=== PATIENT | male | born 1995 | race African-American/Black ===

== ENCOUNTER 2016-05-04 | Outpatient (CLI) | payer MEDICAID | END 2016-05-04 05:16 | disposition critical access hospital (66) | DX: R10.31 Right lower quadrant pain (principal) | CPT/HCPCS: A0425; A0429 ==

== ENCOUNTER 2016-05-04 05:32 | Emergency (ER) | payer MEDICAID, OTHER ==
[2016-05-04] MEDS ORDERED: IOPAMIDOL-300 100 ML VIAL IVP ONE (07:23)
[2016-05-04] MEDS ORDERED: AMPICILLIN/SULBACTAM 3 GM in SODIUM CHLORIDE 0.9% MINIBAG 100 ML IV STA (07:50)
== END 2016-05-04 08:47 | disposition home or self-care (01) ==
DX: K57.32 Diverticulitis of large intestine without perforation or abscess without bleeding (principal)
CPT/HCPCS: 36415; 74177; 80053; 81003; 83690; 85025; 87491; 87591; 96374; 99284; Q9967

== ENCOUNTER 2017-05-22 08:00 | Outpatient (CLI) | payer MEDICAID ==
[2017-05-22 18:55] LABS: BASOPHILS # (AUTO) 0.1 10^3/uL (0.0-0.1); EOSINOPHILS # (AUTO) 0.1 10^3/uL (0.0-0.7); EOSINOPHILS % (AUTO) 0.9 %; HGB - HEMOGLOBIN 14.7 g/dL (14.0-18.0); LYMPHOCYTES # (AUTO) 1.7 10^3/uL (1.5-3.5); MEAN CORPUSCULAR HEMOGLOBIN 28.7 pg (27.0-31.0); MEAN CORPUSCULAR HGB CONC 33.1 g/dL (32.0-36.0); MEAN CORPUSCULAR VOLUME 86.8 fL (80.0-94.0); MEAN PLATELET VOLUME 8.9 fL (7.4-11.4); MONOCYTES # (AUTO) 0.4 10^3/uL (0.0-1.0); MONOCYTES % (AUTO) 6.3 %; NEUTROPHILS % (AUTO) 64.8 %; PLT - PLATELET COUNT 272 10^3/uL (130-450); RED BLOOD COUNT 5.12 10^6/uL (4.70-6.10); RED CELL DISTRIBUTION WIDTH 13.9 % (12.0-15.0); WHITE BLOOD COUNT 6.2 x10^3/uL (4.8-10.8)
[2017-05-22 18:58] LABS: BUN - BLOOD UREA NITROGEN 17 mg/dL (6-20); CALCIUM 9.2 mg/dL (8.5-10.3); CARBON DIOXIDE - CO2 26 mmol/L (21-32); CHLORIDE 103 mmol/L (101-111); CREATININE 0.9 mg/dL (0.6-1.2); GFR - MDRD 126 (>89); GLUCOSE 97 mg/dL (70-100); SODIUM 136 mmol/L (135-145)
== END 2017-05-22 08:01 | disposition home or self-care (01) ==
LOC: LAB.N 08:00
PROVIDERS: ATTEND Physician Assistant Medical
DX: K57.32 Diverticulitis of large intestine without perforation or abscess without bleeding (principal)
CPT/HCPCS: 36415; 80048; 84443; 85025

== ENCOUNTER 2017-05-24 20:08 | Outpatient (CLI) | payer MEDICAID | END 2017-05-24 20:09 | disposition EMS.NT | LOC: EMS 20:08 | PROVIDERS: ATTEND Surgery | DX: F91.9 Conduct disorder, unspecified (principal) ==

== ENCOUNTER 2017-06-09 14:54 | Outpatient (CLI) | payer MEDICAID | END 2017-06-09 14:55 | disposition home or self-care (01) | LOC: SC 14:54 | PROVIDERS: ATTEND Internal Medicine Pulmonary Disease | DX: G47.50 Parasomnia, unspecified (principal) | CPT/HCPCS: 99203; 99212 ==

== ENCOUNTER 2017-09-25 12:00 | Emergency (ER) | payer MEDICAID ==
[2017-09-25 12:43] VITALS: BP 122/79
[2017-09-25 12:55] LABS: BILIRUBIN,URINE NEGATIVE (NEGATIVE); GLUCOSE, URINE (UA) NEGATIVE (NEGATIVE); KETONES,URINE (UA) NEGATIVE (NEGATIVE); LEUKOCYTE ESTERASE, URINE NEGATIVE (NEGATIVE); NITRITE,URINE NEGATIVE (NEGATIVE); OCCULT BLOOD,URINE LARGE (NEGATIVE); PROTEIN,URINE NEGATIVE (NEGATIVE); UROBILINOGEN,URINE 0.2 (NORMAL) E.U./dL (NORMAL)
[2017-09-25 12:58] LABS: CLARITY,URINE CLEAR (CLEAR)
[2017-09-25 13:17] LABS: BACTERIA,URINE Rare /HPF (None Seen); RBC,URINE 0-5 /HPF (0-5); SQUAMOUS EPITHELIAL CELL,UR RARE Squamous (<= Few)
[2017-09-25] MEDS ORDERED: SODIUM CHLORIDE 0.9% 1,000 ML IV ONE ×2 (16:13→16:54)
--- NOTE | 2017-09-25 16:14 | ED Physician Documentation ---
History of Present Illness - Stated complaint Stated Complaint: URINATING BLOOD - Chief complaint Chief Complaint: General - History obtained from History obtained from: Patient - History of Present Illness Timing: Today (He noted a few episodes of gross hematuria without clots today. He denies any abdominal pain or other urinary complaints. No back pain. He notes that he has been working out heavily with a lot of abdominal crunches lately.) Review of Systems Ten Systems: 10 systems reviewed and negative Constitutional: denies: Fever, Chills GI: denies: Abdominal Pain, Nausea, Vomiting, Constipation, Diarrhea, Bloody / black stool : denies: Dysuria, Frequency, Hesitancy PD PAST MEDICAL HISTORY - Past Medical History Past Medical History: No Cardiovascular: None Respiratory: None Endocrine/Autoimmune: None GI: None : None HEENT: None Psych: Anxiety Musculoskeletal: None Derm: None - Past Surgical History Past Surgical History: No - Present Medications Home Medications: Ambulatory Orders Medication Instructions Recorded Confirmed No Known Home Medications [No 09/25/17 09/25/17 Known Home Medications] - Allergies Allergies/Adverse Reactions: Allergies Allergy/AdvReac Type Severity Reaction Status Date / Time No Known Drug Allergies Allergy Verified 09/25/17 16:11 - Social History Does the pt smoke?: No Smoking Status: Never smoker Does the pt drink ETOH?: Yes ETOH Use: Liquor Does the pt have substance abuse?: No - Immunizations Immunizations are current?: Yes - POLST Patient has POLST: No PD ED PE NORMAL - Vitals Vital signs reviewed: Yes - General General: Alert and oriented X 3, No acute distress - Abdomen Abdomen: Normal bowel sounds, Soft, Non tender - Back Back: No CVA TTP, No spinal TTP - Extremities Extremities: No edema, No calf tenderness / cord - Neuro Neuro: Alert and oriented X 3, Normal speech Results - Vitals Vitals: Vital Signs - 24 hr 09/25/17 12:38 Temperature 36.4 C L Heart Rate 62 Respiratory 16 Rate Blood Pressure 122/79 O2 Saturation 100 Oxygen O2 Source Room air - Labs Labs: Laboratory Tests 09/25/17 09/25/17 09/25/17 12:48 16:20 16:20 WBC 7.4 RBC 4.98 Hgb 14.8 Hct 44.1 MCV 88.6 MCH 29.8 MCHC 33.6 RDW 13.4 Plt Count 284 MPV 8.1 Neut # (Auto) 4.6 Lymph # (Auto) 1.9 [place] # (Auto) 0.7 Eos # (Auto) 0.1 Baso # (Auto) 0.1 Absolute Nucleated RBC 0.00 Nucleated RBC % 0.0 Sodium 138 Potassium 3.5 Chloride 102 Carbon Dioxide 27 Anion Gap 9.0 BUN 18 Creatinine 1.1 Estimated GFR (MDRD) 100 Glucose 123 H Calcium 9.5 Total Bilirubin 0.7 AST 53 H ALT 26 Alkaline Phosphatase 45 Total Creatine Kinase 1226 H* Total Protein 8.1 Albumin 4.5 Globulin 3.6 Albumin/Globulin Ratio 1.3 Lipase 38 Urine Color YELLOW Urine Clarity CLEAR Urine pH 6.0 Ur Specific [place] 1.015 Urine Protein NEGATIVE Urine Glucose (UA) NEGATIVE Urine Ketones NEGATIVE Urine Occult Blood LARGE H Urine Nitrite NEGATIVE Urine Bilirubin NEGATIVE Urine Urobilinogen 0.2 (NORMAL) Ur Leukocyte Esterase NEGATIVE Urine RBC 0-5 Urine WBC 0-3 Ur Squamous Epith Cells RARE Squamous Urine Bacteria Rare Ur Microscopic Review INDICATED Urine Culture Comments NOT INDICATED PD MEDICAL DECISION MAKING - ED course ED course: 22-year-old gentleman with gross hematuria today, this is probably related to mild rhabdomyolysis which is corroborated on laboratory evaluation. It is pretty mild and he does not need admission for this. He was given 2 L of crystalloid in the department and urged to take a few days off of exercise and push p.o. fluids. - Sepsis Event Vital Signs: Vital Signs - 24 hr 09/25/17 12:38 Temperature 36.4 C L Heart Rate 62 Respiratory 16 Rate Blood Pressure 122/79 O2 Saturation 100 Oxygen O2 Source Room air Departure - Departure Disposition: 01 Home, Self Care Clinical Impression: Rhabdomyolysis Qualifiers: Rhabdomyolysis type: non-traumatic Qualified Code(s): M62.82 - Rhabdomyolysis Condition: Good Record reviewed to determine appropriate education?: Yes Instructions: ED Rhabdomyolysis Comments: Drink plenty of fluids, do not exercise for a few days. Follow-up with your doctor on Friday. Return if worse or if still having bloody urine in the next 48 hours.
[2017-09-25 16:31] LABS: BASOPHILS # (AUTO) 0.1 10^3/uL (0.0-0.1); BASOPHILS % (AUTO) 1.1 %; EOSINOPHILS # (AUTO) 0.1 10^3/uL (0.0-0.7); EOSINOPHILS % (AUTO) 1.4 %; HGB - HEMOGLOBIN 14.8 g/dL (14.0-18.0); LYMPHOCYTES # (AUTO) 1.9 10^3/uL (1.5-3.5); LYMPHOCYTES % (AUTO) 25.9 %; MEAN CORPUSCULAR HEMOGLOBIN 29.8 pg (27.0-31.0); MEAN CORPUSCULAR HGB CONC 33.6 g/dL (32.0-36.0); MEAN CORPUSCULAR VOLUME 88.6 fL (80.0-94.0); MEAN PLATELET VOLUME 8.1 fL (7.4-11.4); MONOCYTES # (AUTO) 0.7 10^3/uL (0.0-1.0); MONOCYTES % (AUTO) 9.3 %; NEUTROPHILS # (AUTO) 4.6 10^3/uL (1.5-6.6); NEUTROPHILS % (AUTO) 62.3 %; PLT - PLATELET COUNT 284 10^3/uL (130-450); RED BLOOD COUNT 4.98 10^6/uL (4.70-6.10); RED CELL DISTRIBUTION WIDTH 13.4 % (12.0-15.0); WHITE BLOOD COUNT 7.4 x10^3/uL (4.8-10.8)
[2017-09-25 16:53] LABS: ALBUMIN 4.5 g/dL (3.2-5.5); ALBUMIN/GLOBULIN RATIO 1.3 (1.0-2.2); BILIRUBIN,TOTAL 0.7 mg/dL (0.2-1.0); CALCIUM 9.5 mg/dL (8.5-10.3); CREATININE 1.1 mg/dL (0.6-1.2); TOTAL PROTEIN 8.1 g/dL (6.7-8.2)
== END 2017-09-25 17:35 | disposition home or self-care (01) ==
LOC: ED 12:00
DX: M62.82 Rhabdomyolysis (principal)
CPT/HCPCS: 36415; 80053; 81001; 81003; 82550; 83690; 85025; 87086; 99283

== ENCOUNTER 2018-03-16 21:16 | Outpatient (CLI) | payer SELFPAY | END 2018-03-16 21:17 | disposition EMS.NT | LOC: EMS 21:16 | PROVIDERS: ATTEND Surgery | DX: F41.9 Anxiety disorder, unspecified (principal) ==

== ENCOUNTER 2018-03-29 18:27 | Outpatient (CLI) | payer MEDICAID | END 2018-03-29 18:28 | disposition EMS.NT | LOC: EMS 18:27 | PROVIDERS: ATTEND Surgery | DX: F43.9 Reaction to severe stress, unspecified (principal); R44.0 Auditory hallucinations ==

== ENCOUNTER 2018-11-11 20:59 | Outpatient (CLI) | payer MEDICAID | END 2018-11-11 21:00 | disposition critical access hospital (66) | LOC: EMS 20:59 | PROVIDERS: ATTEND Surgery | DX: R46.89 Other symptoms and signs involving appearance and behavior (principal); R41.9 Unspecified symptoms and signs involving cognitive functions and awareness | CPT/HCPCS: A0425; A0429 ==

== ENCOUNTER 2018-11-11 21:14 | Emergency (ER) | payer MEDICAID ==
[2018-11-11 21:19] VITALS: BP 144/42
[2018-11-11] MEDS ORDERED: SERTRALINE 25 MG TABLET PO STA (21:25)
--- NOTE | 2018-11-11 21:27 | ED Physician Documentation ---
PD HPI MHE - Stated complaint Stated Complaint: MHE - Chief complaint Chief Complaint: MHE - History obtained from History obtained from: Patient - History of Present Illness Primary symptom: Other (This is a 23-year-old gentleman, currently homeless but with very good insight. He has a history of anxiety, previously this was treated with Zoloft with good effect. Interestingly though he says he often took Zoloft only on a as needed basis and it was very effective. He denies suicidal ideation, substance use, homicidal ideation, or hallucinations. He was found today having a panic attack where he was hitting the ground. He was able to adjust himself out of that.) Review of Systems Constitutional: denies: Fever, Chills Respiratory: reports: Reviewed and negative GI: reports: Reviewed and negative : reports: Reviewed and negative PD PAST MEDICAL HISTORY - Past Medical History Past Medical History: Yes Cardiovascular: None Respiratory: None Endocrine/Autoimmune: None GI: None : None HEENT: None Psych: Anxiety Musculoskeletal: None Derm: None - Past Surgical History Past Surgical History: No - Present Medications Home Medications: Ambulatory Orders Medication Instructions Recorded Confirmed Sertraline [Zoloft] 25 mg PO DAILY #30 tablet 11/11/18 - Allergies Allergies/Adverse Reactions: Allergies Allergy/AdvReac Type Severity Reaction Status Date / Time No Known Drug Allergies Allergy Verified 11/11/18 21:19 - Social History Does the pt smoke?: No Smoking Status: Never smoker Does the pt drink ETOH?: Yes Does the pt have substance abuse?: No - Immunizations Immunizations are current?: Yes - POLST Patient has POLST: No PD ED PE NORMAL - Vitals Vital signs reviewed: Yes - General General: Alert and oriented X 3, No acute distress - HEENT HEENT: PERRL, EOMI - Extremities Extremities: Other (Some scrapes on the dorsa of the hands. Some eczema to, no deformities or tenderness.) - Neuro Neuro: Alert and oriented X 3, Normal speech - Psych Psych: Normal mood, Normal affect Results - Vitals Vitals: Vital Signs - 24 hr 11/11/18 21:15 Temperature 36.7 C Heart Rate 94 Respiratory 18 Rate Blood Pressure 144/42 H O2 Saturation 98 Oxygen O2 Source Room air PD MEDICAL DECISION MAKING - ED course ED course: This young man who presents with anxiety. He requested some Zoloft. I also offered a short-term bridging benzodiazepine prescription, or tele-psychiatric consultation which he declined. Departure - Departure Disposition: 01 Home, Self Care Clinical Impression: Anxiety Condition: Good Record reviewed to determine appropriate education?: Yes Instructions: ED Stress React Prescriptions: Sertraline [Zoloft] 25 mg PO DAILY #30 tablet Comments: Follow-up with [facility] in 5 days as is already scheduled. Return for new or worsening symptoms. Return anytime if you develop some homicidal or suicidal ideations Discharge Date/Time: 11/11/18 21:38
== END 2018-11-11 21:38 | disposition home or self-care (01) ==
LOC: EDUNIT# → ED 21:14
DX: F41.9 Anxiety disorder, unspecified (principal); Z59.0 Homelessness
CPT/HCPCS: 99282; 99283; A9270

== ENCOUNTER 2019-10-14 02:07 | Outpatient (CLI) | payer MEDICAID | END 2019-10-14 02:08 | disposition critical access hospital (66) | LOC: EMS 02:07 | PROVIDERS: ATTEND Surgery | DX: R46.89 Other symptoms and signs involving appearance and behavior (principal); R41.82 Altered mental status, unspecified; Z59.0 Homelessness | CPT/HCPCS: A0425; A0429; A0999 ==

== ENCOUNTER 2019-10-14 02:24 | Emergency (ER) | payer MEDICAID ==
[2019-10-14 02:40] VITALS: BP 129/90
[2019-10-14 02:56] LABS: MUDS CUTOFF CONCENTRATIONS CUTOFF CONC BELOW:
[2019-10-14 03:07] LABS: AMPHETAMINE SCREEN,URINE NEGATIVE (NEGATIVE); BENZODIAZEPINES SCREEN, URINE NEGATIVE (NEGATIVE); COCAINE SCREEN URINE NEGATIVE (NEGATIVE); METHADONE SCREEN, URINE NEGATIVE (NEGATIVE); METHAMPHETAMINES SCREEN, URINE NEGATIVE (NEGATIVE); OPIATE SCREEN, URINE NEGATIVE (NEGATIVE); OXYCODONE SCREEN, URINE NEGATIVE (NEGATIVE); PROPOXYPHENE SCREEN, URINE NEGATIVE (NEGATIVE); TRICYCLIC ANTIDEPRESSANT,URINE NEGATIVE (NEGATIVE)
--- NOTE | 2019-10-14 03:17 | ED Physician Documentation ---
PD HPI MHE - Stated complaint Stated Complaint: MHE - Chief complaint Chief Complaint: MHE - History obtained from History obtained from: Patient, EMS - History of Present Illness Primary symptom: Anxiety Contributing factors: Out of meds Recently seen: Not recently seen - Additional information Additional information: [place]. police arrived to parking lot in [place] due to 911 call regarding odd behavior, yelling and ranting from patient. Police called for EMS who transport patient to ED. Patient tells me he was anxious and thinks he had a panic attack. He says this has happened before, and he talks to himself to try to reason out his frustrations and anxiety; he says that he sometimes ends up losing control and yelling, as he did tonight, but has no SI/HI/AH/VH. He is calm, polite, and cooperative on my HPI. He says he had been taking zoloft intermittently and took a dose tonight, which was his last dose.He has had similar ED presentations in the past, most recently ([facility]) November 2018 Review of Systems Neurologic: reports: Reviewed and negative Psychiatric: reports: Anxiety. denies: Depressed, Suicidal, Homicidal, Hallucinations, Delusions, Insomnia PD PAST MEDICAL HISTORY - Past Medical History Past Medical History: Yes Cardiovascular: None Respiratory: None Neuro: None Endocrine/Autoimmune: None GI: None : None HEENT: None Psych: Anxiety Musculoskeletal: None Derm: None - Past Surgical History Past Surgical History: No - Present Medications Home Medications: Ambulatory Orders Medication Instructions Recorded Confirmed Sertraline [Zoloft] 25 mg PO DAILY #30 tablet 11/11/18 Sertraline [Zoloft] 25 mg PO DAILY #30 tablet 10/14/19 - Allergies Allergies/Adverse Reactions: Allergies Allergy/AdvReac Type Severity Reaction Status Date / Time No Known Drug Allergies Allergy Verified 10/14/19 02:40 - Social History Does the pt smoke?: No Smoking Status: Never smoker Does the pt drink ETOH?: No Does the pt have substance abuse?: No - Immunizations Immunizations are current?: Yes - POLST Patient has POLST: No PD ED PE NORMAL - Vitals Vital signs reviewed: Yes - General General: Alert and oriented X 3, No acute distress, Well developed/nourished - HEENT HEENT: Atraumatic, PERRL, EOMI, Moist mucous membranes - Cardiac Cardiac: RRR, No murmur - Respiratory Respiratory: No respiratory distress, Clear bilaterally - Neuro Neuro: Alert and oriented X 3, 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, No motor deficit, No sensory deficit, Normal speech Eye Opening: Spontaneous Motor: Obeys Commands Verbal: Oriented GCS Score: 15 - Psych Psych: Normal mood, Normal affect Results - Vitals Vitals: Vital Signs - 24 hr 10/14/19 10/14/19 02:34 04:00 Temperature 37.1 C Heart Rate 76 Respiratory 18 16 Rate Blood Pressure 129/90 H O2 Saturation 99 Oxygen O2 Source Room air - Labs Labs: Laboratory Tests 10/14/19 02:45 Urine Opiates Screen NEGATIVE Ur Oxycodone Screen NEGATIVE Urine Methadone Screen NEGATIVE Ur Propoxyphene Screen NEGATIVE Ur Barbiturates Screen NEGATIVE Ur Tricyclics Screen NEGATIVE Ur Phencyclidine Scrn NEGATIVE Ur Amphetamine Screen NEGATIVE U Methamphetamines Scrn NEGATIVE U Benzodiazepines Scrn NEGATIVE Urine Cocaine Screen NEGATIVE U Cannabinoids Screen NEGATIVE PD MEDICAL DECISION MAKING - ED course Complexity details: reviewed old records, reviewed results, considered differential, d/w patient ED course: patient is calm, cooperative, polite, and pleasant. the report regarding his be havior tonight is concerning, but at this time there is insufficient reason to hold patient against his will. I offered telepsych consult which he declines; he says he is set up with [facility], that he will call in the morning to arrange for next available appointment, and that he has been able to obtain timely appointments in the past. I offered to rx zoloft, which he appreciates. Departure - Departure Disposition: 01 Home, Self Care Clinical Impression: Anxiety Condition: Good Instructions: ED Stress React Follow-Up: [facility] [Provider Group] Prescriptions: Sertraline [Zoloft] 25 mg PO DAILY #30 tablet Discharge Date/Time: 10/14/19 04:05
== END 2019-10-14 04:05 | disposition home or self-care (01) ==
LOC: EDUNIT# → ED 02:24
DX: F41.9 Anxiety disorder, unspecified (principal)
CPT/HCPCS: 80306; 99283; 99284

== ENCOUNTER 2019-12-21 02:38 | Outpatient (CLI) | payer MEDICAID | END 2019-12-21 02:39 | disposition EMS.NT | LOC: EMS 02:38 | PROVIDERS: ATTEND Surgery | DX: R07.9 Chest pain, unspecified (principal) ==

== ENCOUNTER 2020-05-20 21:10 | Outpatient (CLI) | payer MEDICAID | END 2020-05-20 21:11 | disposition critical access hospital (66) | LOC: EMS 21:10 | PROVIDERS: ATTEND Emergency Medicine | DX: R46.89 Other symptoms and signs involving appearance and behavior (principal) | CPT/HCPCS: A0425; A0429; A0999 ==

== ENCOUNTER 2020-05-20 21:28 | Emergency (ER) | payer MEDICAID ==
[2020-05-20 21:41] VITALS: BP 117/56
[2020-05-20] MEDS ORDERED: SERTRALINE 50 MG TABLET PO STA (21:58)
--- NOTE | 2020-05-20 22:05 | ED Physician Documentation ---
PD HPI MHE - Stated complaint Stated Complaint: MHE - Chief complaint Chief Complaint: MHE - History obtained from History obtained from: Patient - History of Present Illness Primary symptom: Anxiety, Other (Patient reportedly seen yelling and acting a bit erratically but not directed at anyone. Police were called and they assessed him as he was coming down. He states he has OCD and gets anxious and feels anxiety in has a pattern of yelling and exercises that he has to do to calm himself down. OK now.) Timing - onset: Today Contributing factors: Out of meds (out of Zoloft and been off it for several months. He states it did help at the time.), Other. No: Substance abuse - ETOH, Substance abuse - drugs Similar symptoms before: Diagnosis (OCD and anxiety. No history of schizoaffective disorder.) Recently seen: Clinic (has resumed with [facility] recently.) Review of Systems Constitutional: denies: Fever, Chills Nose: denies: Rhinorrhea / runny nose, Congestion Throat: denies: Sore throat Cardiac: denies: Chest pain / pressure Respiratory: denies: Dyspnea, Cough GI: denies: Abdominal Pain, Nausea, Vomiting Skin: denies: Rash, Lesions PD PAST MEDICAL HISTORY - Past Medical History Past Medical History: Yes Cardiovascular: None Respiratory: None Neuro: None Endocrine/Autoimmune: None GI: None : None HEENT: None Psych: Anxiety Musculoskeletal: None Derm: None - Past Surgical History Past Surgical History: No - Present Medications Home Medications: Ambulatory Orders Medication Instructions Recorded Confirmed Sertraline [Zoloft] 25 mg PO DAILY #30 tablet 11/11/18 Sertraline [Zoloft] 25 mg PO DAILY #30 tablet 10/14/19 Sertraline [Zoloft] 50 mg PO DAILY #30 tablet 05/20/20 - Allergies Allergies/Adverse Reactions: Allergies Allergy/AdvReac Type Severity Reaction Status Date / Time No Known Drug Allergies Allergy Verified 05/20/20 21:33 - Living Situation Living Situation: reports: Alone Living Arrangement: reports: Homeless (lives in his car the past couple of years) - Social History Does the pt smoke?: No Smoking Status: Never smoker Does the pt drink ETOH?: No Does the pt have substance abuse?: No - Family History Family history: reports: Other (anxiety and depression in parents) - Immunizations Immunizations are current?: Yes - POLST Patient has POLST: No PD ED PE NORMAL - Vitals Vital signs reviewed: Yes - General General: Alert and oriented X 3, No acute distress, Well developed/nourished - HEENT HEENT: Pharynx benign - Neck Neck: Supple, no meningeal sign, No adenopathy - Cardiac Cardiac: RRR, No murmur - Respiratory Respiratory: Clear bilaterally - Derm Derm: Normal color, Warm and dry - Neuro Neuro: Alert and oriented X 3, No motor deficit, Normal speech Eye Opening: Spontaneous Motor: Obeys Commands Verbal: Oriented GCS Score: 15 - Psych Psych: Normal mood, Normal affect Results - Vitals Vitals: Vital Signs - 24 hr 05/20/20 05/20/20 05/20/20 21:33 21:41 22:43 Temperature 36.6 C 36.6 C 36.6 C Heart Rate 73 68 68 Respiratory 16 16 16 Rate Blood Pressure 117/56 L 117/56 L 117/56 L O2 Saturation 100 98 98 Oxygen O2 Source Room air PD MEDICAL DECISION MAKING - ED course Complexity details: considered differential (He states he had a stress episode and was yelling and such until he calmed himself down. He was in public view so police were called but he was not at any threat to others nor himself. He feels relaxed at this time. He denies any medication for anxiety per se. He would like to resume his Zoloft.), d/w patient ED course: The patient declined any other medicines to act as a bridge in the short-term for his anxiety. He states his OCD is such that he is not trusting of new medicines easily and would prefer to just have the Zoloft he had had before. Departure - Departure Disposition: 01 Home, Self Care Clinical Impression: Stress reaction OCD (obsessive compulsive disorder) Qualifiers: Obsessive-compulsive disorder type: unspecified Qualified Code(s): F42.9 - Obsessive-compulsive disorder, unspecified Condition: Stable Record reviewed to determine appropriate education?: Yes Instructions: ED Stress React Follow-Up: [facility] [Provider Group] [facility] [Provider Group] Prescriptions: Sertraline [Zoloft] 50 mg PO DAILY #30 tablet Comments: Resume your Zoloft at 25 mg (half tablet) daily for the first 6 days and then increase to the whole tablet of 50 mg daily. We would start at a lower dose and you had been on since you had been off of it for many months. Follow-up with your primary care or [facility] for ongoing prescriptions and evaluation. Call Friday to [facility] for follow-up appointment. Avoid alcohol. Stay well-hydrated. Discharge Date/Time: 05/20/20 22:42
[2020-05-21] MEDS ORDERED: SERTRALINE 50 MG TABLET PO SCH (09:00)
== END 2020-05-20 22:42 | disposition home or self-care (01) ==
LOC: EDUNIT# → ED 21:28
DX: F42.9 Obsessive-compulsive disorder, unspecified (principal); F43.9 Reaction to severe stress, unspecified; Z59.0 Homelessness
CPT/HCPCS: 99283; 99284; A9270

== ENCOUNTER 2020-06-12 20:30 | Emergency (ER) | payer MEDICAID ==
--- OUTSIDE RECORDS SUMMARY | 2020-06-12 20:33 | EXTERNAL MEDICAL SUMMARY RPT | Continuity of Care Document ---
:1995 Demographics Phone Unavailable Preferred Language Unknown Marital Status Unknown Denominational Affiliation Unknown Race Unknown Ethnic Group Unknown Author Organization [facility] Address [address] [place] [address] Phone Social History date description facility [phone]
[2020-06-12 21:12] LABS: MUDS CUTOFF CONCENTRATIONS CUTOFF CONC BELOW:
--- OUTSIDE RECORDS SUMMARY | 2020-06-12 21:15 | EXTERNAL MEDICAL SUMMARY RPT | Continuity of Care Document ---
:1995 Demographics Phone Unavailable Preferred Language Unknown Marital Status Unknown Restorationism Affiliation Unknown Race Unknown Ethnic Group Unknown Author Organization [place] Address [address] [id number] Phone Social History date description facility [phone]
[2020-06-12 21:17] LABS: BILIRUBIN,URINE NEGATIVE (NEGATIVE); CLARITY,URINE CLEAR (CLEAR); GLUCOSE, URINE (UA) NEGATIVE (NEGATIVE); KETONES,URINE (UA) NEGATIVE (NEGATIVE); LEUKOCYTE ESTERASE, URINE NEGATIVE (NEGATIVE); NITRITE,URINE NEGATIVE (NEGATIVE); OCCULT BLOOD,URINE TRACE-INTA (NEGATIVE); PH,URINE 5.5 PH (5.0-7.5); PROTEIN,URINE NEGATIVE (NEGATIVE); UROBILINOGEN,URINE 0.2 (NORMAL) E.U./dL (NORMAL)
[2020-06-12 21:45] LABS: AMPHETAMINE SCREEN,URINE NEGATIVE (NEGATIVE); BARBITURATE SCREEN,UR NEGATIVE (NEGATIVE); BENZODIAZEPINES SCREEN, URINE NEGATIVE (NEGATIVE); COCAINE SCREEN URINE NEGATIVE (NEGATIVE); METHADONE SCREEN, URINE NEGATIVE (NEGATIVE); METHAMPHETAMINES SCREEN, URINE NEGATIVE (NEGATIVE); OPIATE SCREEN, URINE NEGATIVE (NEGATIVE); OXYCODONE SCREEN, URINE NEGATIVE (NEGATIVE); PROPOXYPHENE SCREEN, URINE NEGATIVE (NEGATIVE); THC CANNABINOID SCREEN, URINE NEGATIVE (NEGATIVE); TRICYCLIC ANTIDEPRESSANT,URINE NEGATIVE (NEGATIVE)
--- NOTE | 2020-06-12 21:49 | ED Physician Documentation ---
PD HPI MHE - Stated complaint Stated Complaint: MHE - Chief complaint Chief Complaint: MHE - History obtained from History obtained from: Patient, EMS - History of Present Illness Primary symptom: Self harm - other (Running in and out of traffic) Timing - onset: Today Contributing factors: Off meds Similar symptoms before: Diagnosis (OCD and anxiety) Recently seen: Emergency Dept - Additional information Additional information: 25-year-old male with a history of anxiety and OCD has previously been on Zoloft with success at control of his symptoms. He describes taking this intermittently and having good luck with controlling the amount of anxiety he experiences. He has been into the emergency department recently for evaluation after he was found to be acting bizarrely. At the time he was prescribed his Zoloft and he was never able to pick this up. He apparently went to the drugstore and they told him it was not ready and told him to come back which he never did.Today he was again acting bizarrely he states that he had a panic attack which is usually results in him being very aggressive with yelling not directed any specific person and he was not violent. He was seen by the police twice today acting bizarrely and when he was running in and out of traffic this evening they detained him. The patient now states that he is calm down and is no longer under the influence of his anxiety attack. He relates that his anxiety attacks are much better when he is usually taking his medication. He relates that he has moved to [facility] about 10 months ago and he has stopped taking his medication then. He is homeless lives in his car [place]The patient feels that if he were to start on his Zoloft that he would be fine and would not require hospitalization. Review of Systems Constitutional: denies: Fever Eyes: denies: Decreased vision Ears: denies: Ear pain Nose: denies: Rhinorrhea / runny nose, Congestion Throat: denies: Sore throat Cardiac: denies: Chest pain / pressure, Palpitations Respiratory: denies: Dyspnea, Cough GI: denies: Nausea, Vomiting : denies: Dysuria Skin: denies: Rash Musculoskeletal: denies: Neck pain, Back pain, Extremity pain Neurologic: denies: Generalized weakness, Focal weakness, Numbness Psychiatric: reports: Anxiety. denies: Depressed, Suicidal, Homicidal, Hallucinations PD PAST MEDICAL HISTORY - Past Medical History Cardiovascular: None Respiratory: None Neuro: None Endocrine/Autoimmune: None GI: None : None HEENT: None Psych: Anxiety Musculoskeletal: None Derm: None - Past Surgical History Past Surgical History: No - Present Medications Home Medications: Ambulatory Orders Medication Instructions Recorded Confirmed Sertraline [Zoloft] 50 mg PO DAILY #30 tablet 05/20/20 - Allergies Allergies/Adverse Reactions: Allergies Allergy/AdvReac Type Severity Reaction Status Date / Time No Known Drug Allergies Allergy Verified 06/12/20 20:33 - Social History Does the pt smoke?: No Smoking Status: Never smoker Does the pt drink ETOH?: No Does the pt have substance abuse?: No - Immunizations Immunizations are current?: Yes - POLST Patient has POLST: No PD ED PE NORMAL - Vitals Vital signs reviewed: Yes (Hypertensive) - General General: Alert and oriented X 3, No acute distress, Well developed/nourished - HEENT HEENT: Atraumatic, PERRL, EOMI - Neck Neck: Supple, no meningeal sign, No bony TTP - Cardiac Cardiac: RRR, No murmur - Respiratory Respiratory: No respiratory distress, Clear bilaterally - Abdomen Abdomen: Soft, Non tender - Back Back: No CVA TTP, No spinal TTP - Derm Derm: Normal color, Warm and dry, No rash - Extremities Extremities: No deformity, No edema - Neuro Neuro: Alert and oriented X 3, 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, No motor deficit, No sensory deficit, Normal speech Eye Opening: Spontaneous Motor: Obeys Commands Verbal: Oriented GCS Score: 15 - Psych Psych: Normal mood, Normal affect Results - Vitals Vitals: Vital Signs - 24 hr 06/12/20 20:34 Temperature 37.2 C Heart Rate 91 Respiratory 18 Rate Blood Pressure 137/57 H O2 Saturation 100 Oxygen O2 Source Room air - Labs Labs: Laboratory Tests 06/12/20 06/13/20 06/13/20 20:50 00:29 00:29 WBC 7.1 RBC 4.96 Hgb 14.8 Hct 44.7 MCV 90.1 MCH 29.8 MCHC 33.1 RDW 13.2 Plt Count 301 MPV 9.6 Neut # (Auto) 5.1 Lymph # (Auto) 1.4 L [place] # (Auto) 0.6 Eos # (Auto) 0.1 Baso # (Auto) 0.0 Absolute Nucleated RBC 0.00 Nucleated RBC % 0.0 Sodium 134 L Potassium 4.1 Chloride 100 L Carbon Dioxide 25 Anion Gap 9.0 BUN 16 Creatinine 1.1 Estimated GFR (MDRD) 97 Glucose 108 H Calcium 9.7 Total Bilirubin 1.1 H AST 43 H ALT 38 Alkaline Phosphatase 45 Total Protein 7.9 Albumin 4.7 Globulin 3.2 Albumin/Globulin Ratio 1.5 Lipase 33 TSH Urine Color YELLOW Urine Clarity CLEAR Urine pH 5.5 Ur Specific [place] 1.015 Urine Protein NEGATIVE Urine Glucose (UA) NEGATIVE Urine Ketones NEGATIVE Urine Occult Blood TRACE-INTA Urine Nitrite NEGATIVE Urine Bilirubin NEGATIVE Urine Urobilinogen 0.2 (NORMAL) Ur Leukocyte Esterase NEGATIVE Ur Microscopic Review NOT INDICATED Urine Culture Comments NOT INDICATED Salicylates < 6.0 Urine Opiates Screen NEGATIVE Ur Oxycodone Screen NEGATIVE Urine Methadone Screen NEGATIVE Ur Propoxyphene Screen NEGATIVE Acetaminophen < 10 L Ur Barbiturates Screen NEGATIVE Ur Tricyclics Screen NEGATIVE Ur Phencyclidine Scrn NEGATIVE Ur Amphetamine Screen NEGATIVE U Methamphetamines Scrn NEGATIVE U Benzodiazepines Scrn NEGATIVE Urine Cocaine Screen NEGATIVE U Cannabinoids Screen NEGATIVE Ethyl Alcohol < 5.0 06/13/20 00:29 WBC RBC Hgb Hct MCV MCH MCHC RDW Plt Count MPV Neut # (Auto) Lymph # (Auto) [place] # (Auto) Eos # (Auto) Baso # (Auto) Absolute Nucleated RBC Nucleated RBC % Sodium Potassium Chloride Carbon Dioxide Anion Gap BUN Creatinine Estimated GFR (MDRD) Glucose Calcium Total Bilirubin AST ALT Alkaline Phosphatase Total Protein Albumin Globulin Albumin/Globulin Ratio Lipase TSH 1.00 Urine Color Urine Clarity Urine pH Ur Specific [place] Urine Protein Urine Glucose (UA) Urine Ketones Urine Occult Blood Urine Nitrite Urine Bilirubin Urine Urobilinogen Ur Leukocyte Esterase Ur Microscopic Review Urine Culture Comments Salicylates Urine Opiates Screen Ur Oxycodone Screen Urine Methadone Screen Ur Propoxyphene Screen Acetaminophen Ur Barbiturates Screen Ur Tricyclics Screen Ur Phencyclidine Scrn Ur Amphetamine Screen U Methamphetamines Scrn U Benzodiazepines Scrn Urine Cocaine Screen U Cannabinoids Screen Ethyl Alcohol PD MEDICAL DECISION MAKING - ED course Complexity details: reviewed results, re-evaluated patient, considered differential, d/w patient ED course: 25-year-old male with history of OCD and anxiety has anxiety attacks that resulted in bizarre behavior and he relates that he has improvement in his symptoms with use of his Zoloft. He describes taking the Zoloft on an as-needed basis for 3 to 4 days at a time. He has not been using this medicine for more than 10 months. He request that we administer his Zoloft tonight and feels that he would be better off back in his car that he lives in. He does not think he needs to be hospitalized. He is not suicidal or homicidal. He has been detained by police as potentially gravely disabled. The patient was initially unwilling to provide blood specimen and when he was told he would need medical clearance for psychiatric evaluation in a formal fashion because of the retention he submitted to blood sample. The patient is acting entirely rational and lucid at this time and he is administered Zoloft 50 mg orally. We initially considered discharging the patient but when we got the skilled nursing papers we acted him in accordance with our usual protocol. We have asked our friends with telepsych to evaluate the patient and provide a medication recommendation. While we were awaiting the telepsych evaluation the patient had an episode of his OCD and this was very dramatic with repetitive movement a loud slapping of his hands together and a chanting of a Twinkie a big black tony he repeated this over and over and became diaphoretic. This lasted more than 5 minutes of repetitive loud slapping of the hands together and chanting looking straight at the ground. This was a dramatic event and fortuitously this happened at about the time the telepsych cash posting clerk was available. She was able to witness this event. She was then able to talk with the patient when he "came out of it". During the time that he was having this event he was only able to say back off and he was able to answer no when asked if there was anything we could do to stop the episode. Departure - Departure Clinical Impression: Anxiety, Stress reaction OCD (obsessive compulsive disorder) Qualifiers: Obsessive-compulsive disorder type: mixed obsessional thoughts and acts Qualified Code(s): F42.2 - Mixed obsessional thoughts and acts
[2020-06-12] MEDS ORDERED: SERTRALINE 50 MG TABLET PO STA ×2 (22:17→22:20)
[2020-06-13 00:33] LABS: BASOPHILS % (AUTO) 0.6 %; EOSINOPHILS # (AUTO) 0.1 10^3/uL (0.0-0.7); EOSINOPHILS % (AUTO) 0.8 %; HCT - HEMATOCRIT 44.7 % (42.0-52.0); HGB - HEMOGLOBIN 14.8 g/dL (14.0-18.0); LYMPHOCYTES # (AUTO) 1.4 10^3/uL (1.5-3.5); LYMPHOCYTES % (AUTO) 19.7 %; MEAN CORPUSCULAR HEMOGLOBIN 29.8 pg (27.0-31.0); MEAN CORPUSCULAR HGB CONC 33.1 g/dL (32.0-36.0); MEAN CORPUSCULAR VOLUME 90.1 fL (80.0-94.0); MEAN PLATELET VOLUME 9.6 fL (7.4-11.4); MONOCYTES # (AUTO) 0.6 10^3/uL (0.0-1.0); MONOCYTES % (AUTO) 7.7 %; NEUTROPHILS # (AUTO) 5.1 10^3/uL (1.5-6.6); NEUTROPHILS % (AUTO) 70.9 %; PLT - PLATELET COUNT 301 10^3/uL (130-450); RED BLOOD COUNT 4.96 10^6/uL (4.70-6.10); RED CELL DISTRIBUTION WIDTH 13.2 % (12.0-15.0); WHITE BLOOD COUNT 7.1 x10^3/uL (4.8-10.8)
[2020-06-13 00:48] LABS: ACETAMINOPHEN < 10 ug/mL (10-30); ALBUMIN 4.7 g/dL (3.2-5.5); ALBUMIN/GLOBULIN RATIO 1.5 (1.0-2.2); ALKALINE PHOSPHATASE 45 IU/L (42-121); ALT ALANINE AMINOTRANSFERASE 38 IU/L (10-60); AST ASPARTATE AMINOTRANSFERASE 43 IU/L (10-42); BILIRUBIN,TOTAL 1.1 mg/dL (0.2-1.0); BUN - BLOOD UREA NITROGEN 16 mg/dL (6-20); CALCIUM 9.7 mg/dL (8.5-10.3); CARBON DIOXIDE - CO2 25 mmol/L (21-32); CHLORIDE 100 mmol/L (101-111); CREATININE 1.1 mg/dL (0.6-1.2); ETOH - ETHANOL < 5.0 mg/dL; GFR - MDRD 97 (>89); GLUCOSE 108 mg/dL (70-100); LIPASE 33 U/L (22-51); POTASSIUM 4.1 mmol/L (3.5-5.0); SALICYLATE < 6.0 mg/dL; SODIUM 134 mmol/L (135-145); TOTAL PROTEIN 7.9 g/dL (6.7-8.2)
--- NOTE | 2020-06-13 11:08 | ED Physician Documentation ---
ED Addendum - Addendum Addendum: 06/13/20 11:04 The patient had been evaluated by telepsychiatry. I talked with the provider who did not feel the patient needed hospitalization for treatment. He is not actually seeming harmful but his OCD episodes and anxiety episodes to present as aggressive appearing behavior though he has not hurt anyone. The suggestion was for him to resume his prior Zoloft and to start at 50 mg daily initially and then increase to the 100 mg. Intention would be to slowly increase even up to 300 mg over time as needed. Suggested was also counseling in particular with cognitive behavioral therapy to help with his episodes. Social work talked with the patient was able to arrange an appointment with [facility] for him. I wrote prescriptions for him for the Zoloft and also in the short-term to help with anxiety and such a small prescription for lorazepam. The patient is a will be discharged. His plan is to take the bus up to his car and rest the day. Disposition: Discharged home in stable condition Diagnoses: Obsessive compulsive disorder unusual behavior stress reaction
[2020-06-13 11:14] VITALS: BP 153/75
== END 2020-06-13 11:13 | disposition home or self-care (01) ==
LOC: ED 20:30
DX: F42.2 Mixed obsessional thoughts and acts (principal); F41.9 Anxiety disorder, unspecified; F43.9 Reaction to severe stress, unspecified; T43.226A Underdosing of selective serotonin reuptake inhibitors, initial encounter; Z91.138 Patient's unintentional underdosing of medication regimen for other reason; Z59.0 Homelessness
CPT/HCPCS: 36415; 80053; 80306; 80307; 80320; 80329; 81003; 83690; 84443; 85025; 99283; 99284; A9270; G0425; Q3014; 81001; 87086

== ENCOUNTER 2020-07-25 07:47 | Outpatient (CLI) | payer MEDICAID | END 2020-07-25 07:48 | disposition EMS.NT | LOC: EMS 07:47 | DX: R42 Dizziness and giddiness (principal); F41.9 Anxiety disorder, unspecified ==

== ENCOUNTER 2020-07-27 04:45 | Outpatient (CLI) | payer MEDICAID | END 2020-07-27 04:46 | disposition critical access hospital (66) | LOC: EMS 04:45 | DX: R06.02 Shortness of breath (principal); R11.0 Nausea; F41.9 Anxiety disorder, unspecified | CPT/HCPCS: A0425; A0429 ==

== ENCOUNTER 2020-08-04 21:15 | Outpatient (CLI) | payer MEDICAID | END 2020-08-04 21:16 | disposition EMS.NT | LOC: EMS 21:15 | DX: T63.301A Toxic effect of unspecified spider venom, accidental (unintentional), initial encounter (principal) ==

== ENCOUNTER 2020-08-24 03:34 | Emergency (ER) | payer MEDICAID ==
--- NOTE | 2020-08-24 04:26 | ED Physician Documentation ---
History of Present Illness - Stated complaint Stated Complaint: TINGLES - Chief complaint Chief Complaint: Neuro - History obtained from History obtained from: Patient - History of Present Illness Timing: Last night Pain level max: 0 Pain level now: 0 - Additonal information Additional information: patient states that since last night, he has head tingling sensation in his midline chest, abdomen, and groin. He perceives that this is exacerbated when he moves his right thumb. He thinks he might have nerve damage in his right thumb causing the symptoms. He says he has had similar symptoms in the past which were diagnosed as symptoms of an anxiety disorder, and he has had good results with Ativan in the past. Review of Systems Constitutional: reports: Reviewed and negative Cardiac: reports: Reviewed and negative Respiratory: reports: Reviewed and negative GI: reports: Reviewed and negative Musculoskeletal: reports: Pain with weight bearing PD PAST MEDICAL HISTORY - Past Medical History Past Medical History: Yes Cardiovascular: None Respiratory: None Neuro: None Endocrine/Autoimmune: None GI: None : None HEENT: None Psych: Anxiety Musculoskeletal: None Derm: None - Past Surgical History Past Surgical History: No - Present Medications Home Medications: Ambulatory Orders Medication Instructions Recorded Confirmed LORazepam [Ativan] 0.5 mg PO TID PRN #10 tablet 08/24/20 - Allergies Allergies/Adverse Reactions: Allergies Allergy/AdvReac Type Severity Reaction Status Date / Time No Known Drug Allergies Allergy Verified 08/24/20 03:45 - Social History Does the pt smoke?: No Smoking Status: Never smoker Does the pt drink ETOH?: No Does the pt have substance abuse?: No - Immunizations Immunizations are current?: Yes - POLST Patient has POLST: No PD ED PE NORMAL - Vitals Vital signs reviewed: Yes - General General: Alert and oriented X 3, No acute distress, Well developed/nourished - Cardiac Cardiac: RRR, No murmur - Abdomen Abdomen: Soft, Non tender - Neuro Neuro: Alert and oriented X 3, No motor deficit, No sensory deficit - Psych Psych: Normal mood, Normal affect Results - Vitals Vitals: Oxygen O2 Source Room air - Labs Labs: Laboratory Tests 08/24/20 05:00 Urine Color YELLOW Urine Clarity CLEAR Urine pH 6.0 Ur Specific [place] 1.020 Urine Protein NEGATIVE Urine Glucose (UA) NEGATIVE Urine Ketones NEGATIVE Urine Occult Blood NEGATIVE Urine Nitrite NEGATIVE Urine Bilirubin NEGATIVE Urine Urobilinogen 0.2 (NORMAL) Ur Leukocyte Esterase NEGATIVE Ur Microscopic Review NOT INDICATED Urine Culture Comments NOT INDICATED PD MEDICAL DECISION MAKING - ED course Complexity details: reviewed old records, considered differential, d/w patient ED course: patient provides an odd description of symptoms as noted in HPI, above. However, he appears mildly anxious at times, and says he does have problems with anxiety. He is given a dose of Ativan and a prescription for a short course of same. I expressed to him that I do not think his symptoms are related to an anxiety disorder and that he should pursue follow up with an outpatient primary care provider for any ongoing or recurrent symptoms Departure - Departure Disposition: 01 Home, Self Care Clinical Impression: Anxiety Condition: Good Instructions: ED Symptoms No Dx Prescriptions: LORazepam [Ativan] 0.5 mg PO TID PRN #10 tablet PRN Reason: Anxiety Discharge Date/Time: 08/24/20 05:30
[2020-08-24] MEDS ORDERED: LORazepam 1 MG TABLET PO STA (04:51)
[2020-08-24 05:10] LABS: BILIRUBIN,URINE NEGATIVE (NEGATIVE); GLUCOSE, URINE (UA) NEGATIVE (NEGATIVE); KETONES,URINE (UA) NEGATIVE (NEGATIVE); LEUKOCYTE ESTERASE, URINE NEGATIVE (NEGATIVE); NITRITE,URINE NEGATIVE (NEGATIVE); OCCULT BLOOD,URINE NEGATIVE (NEGATIVE); PROTEIN,URINE NEGATIVE (NEGATIVE); UROBILINOGEN,URINE 0.2 (NORMAL) E.U./dL (NORMAL)
[2020-08-24 05:11] LABS: CLARITY,URINE CLEAR (CLEAR)
[2020-08-24 05:19] VITALS: BP 148/77
== END 2020-08-24 05:30 | disposition home or self-care (01) ==
LOC: ED 03:34
DX: F41.9 Anxiety disorder, unspecified (principal)
CPT/HCPCS: 81003; 99283; 99284; J8499; 81001; 87086

== ENCOUNTER 2020-08-27 14:46 | Emergency (ER) | payer MEDICAID ==
[2020-08-27 15:01] VITALS: BP 129/70
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
== END 2020-08-27 15:53 | disposition home or self-care (01) ==
LOC: ED 14:46
DX: F52.9 Unspecified sexual dysfunction not due to a substance or known physiological condition (principal)
CPT/HCPCS: 99282; 99283

== ENCOUNTER 2020-08-28 14:33 | Outpatient (CLI) | payer MEDICAID | END 2020-08-28 14:34 | disposition critical access hospital (66) | LOC: EMS 14:33 | DX: R20.2 Paresthesia of skin (principal) | CPT/HCPCS: A0425; A0429; A0999 ==

== ENCOUNTER 2020-08-28 14:54 | Emergency (ER) | payer MEDICAID ==
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
[2020-08-28 15:54] VITALS: BP 127/78
== END 2020-08-28 16:35 | disposition home or self-care (01) ==
LOC: EDUNIT# → ED 14:54
DX: T75.4XXA Electrocution, initial encounter (principal); W86.0XXA Exposure to domestic wiring and appliances, initial encounter
CPT/HCPCS: 93005

== ENCOUNTER 2020-08-28 18:19 | Outpatient (CLI) | payer MEDICAID | END 2020-08-28 18:20 | disposition critical access hospital (66) | LOC: EMS 18:19 | DX: R20.2 Paresthesia of skin (principal) | CPT/HCPCS: A0425; A0429 ==

== ENCOUNTER 2020-08-28 18:38 | Emergency (ER) | payer MEDICAID ==
[2020-08-28] MEDS ORDERED: LORazepam 1 MG TABLET PO STA (21:43)
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
[2020-08-28 21:53] VITALS: BP 148/66
== END 2020-08-28 21:52 | disposition home or self-care (01) ==
LOC: EDUNIT# → ED 18:38
DX: T75.4XXA Electrocution, initial encounter (principal); W86.0XXA Exposure to domestic wiring and appliances, initial encounter; F10.230 Alcohol dependence with withdrawal, uncomplicated
CPT/HCPCS: 93005; J8499

== ENCOUNTER 2020-08-31 20:18 | Outpatient (CLI) | payer MEDICAID | END 2020-08-31 20:19 | disposition critical access hospital (66) | LOC: EMS 20:18 | DX: F41.9 Anxiety disorder, unspecified (principal); R20.8 Other disturbances of skin sensation | CPT/HCPCS: A0425; A0429 ==

== ENCOUNTER 2020-08-31 20:38 | Emergency (ER) | payer MEDICAID ==
--- NOTE | 2020-09-01 01:15 | ED Physician Documentation ---
History of Present Illness - Stated complaint Stated Complaint: WITHDRAWAL SX - Chief complaint Chief Complaint: MHE - History obtained from History obtained from: Patient - History of Present Illness Timing: Today Improved by: nothing Worsened by: no inciting nor exacerbating factors - Additonal information Additional information: MIKEJong. 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 Tonight, he says he developed tingling discomfort in his groin and this resulted in full blown panic attack (per patient). He has had many recent [facility] ED visits including 08/24, 08/27, 08/28 (two visits same day). Thus, todays visit makes five visits to this ED within 1 week. He was also evaluated here 07/26 and 07/27. He is insisting he needs an IV and tests to find and eliminate the toxins in his body. Review of Systems Constitutional: denies: Fever Cardiac: reports: Reviewed and negative Respiratory: reports: Reviewed and negative GI: reports: Reviewed and negative : denies: Dysuria, Frequency, Discharge Musculoskeletal: reports: Reviewed and negative Psychiatric: reports: Anxiety. denies: Depressed, Suicidal, Homicidal, Hallucinations PD PAST MEDICAL HISTORY - Past Medical History Past Medical History: Yes Cardiovascular: None Respiratory: None Neuro: None Endocrine/Autoimmune: None GI: None : None HEENT: None Psych: Anxiety Musculoskeletal: None Derm: None - Past Surgical History Past Surgical History: No - Present Medications Home Medications: Ambulatory Orders Medication Instructions Recorded Confirmed LORazepam [Ativan] 0.5 mg PO TID PRN #10 tablet 08/24/20 08/28/20 LORazepam [Ativan] 1 mg PO TID PRN #7 tablet 08/28/20 Sertraline HCl 100 mg PO DAILY 08/28/20 08/28/20 hydrOXYzine pamoate [Hydroxyzine 25 mg PO Q6HR PRN #20 09/01/20 Pamoate] - Allergies Allergies/Adverse Reactions: Allergies Allergy/AdvReac Type Severity Reaction Status Date / Time No Known Drug Allergies Allergy Verified 08/31/20 20:48 - Social History Does the pt smoke?: No Smoking Status: Never smoker Does the pt drink ETOH?: Yes Does the pt have substance abuse?: No - Immunizations Immunizations are current?: Yes - POLST Patient has POLST: No PD ED PE NORMAL - Vitals Vital signs reviewed: Yes - General General: Alert and oriented X 3, No acute distress, Well developed/nourished - Cardiac Cardiac: RRR, No murmur - Respiratory Respiratory: No respiratory distress, Clear bilaterally - Abdomen Abdomen: Soft, Non tender - Neuro Neuro: Alert and oriented X 3, city 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 I am familiar with this patient from multiple previous ED evaluations and thus evaluated him according to appropriate triage of resources. He was frequently in the hallway and several times he tried to flag me down and demand an IV and tests. By the time I was able to evaluate him, he was calm, smiling, cooperative, and polite. He apologized for his behavior unprompted, and says he feels embarrassed he was acting in such a manner. He says he was having a panic attack and has trouble controlling himself when he has one. He says he wants to be discharged and will go back to the rehab/detox facility. he asks if there are alternative medications for anxiety to lorazepam. We discussed zoloft and similar medications, which take weeks to reach therapeutic results. I offered hydroxyzine for short-term/rapid relief to be used PRN for panic/anxiety. He is interested in this, as it has no addiction potential (except psychologic). He is provided an rx for this and given a dose prior to d/c Departure - Departure Disposition: 01 Home, Self Care Clinical Impression: Anxiety attack Condition: Good Instructions: ED Panic Attack Prescriptions: hydrOXYzine pamoate [Hydroxyzine Pamoate] 25 mg PO Q6HR PRN #20 PRN Reason: Anxiety Discharge Date/Time: 09/01/20 02:28
[2020-09-01] MEDS ORDERED: hydrOXYzine PAMOATE 25 MG CAPSULE PO STA (02:14)
[2020-09-01 02:30] VITALS: BP 134/93
== END 2020-09-01 02:28 | disposition home or self-care (01) ==
LOC: EDUNIT# → ED 20:38
DX: F41.0 Panic disorder [episodic paroxysmal anxiety] (principal); F41.9 Anxiety disorder, unspecified; R10.30 Lower abdominal pain, unspecified
CPT/HCPCS: 99283; A9270

== ENCOUNTER 2020-09-16 01:51 | Emergency (ER) | payer MEDICAID ==
--- NOTE | 2020-09-16 02:47 | ED Physician Documentation ---
PD HPI CHEST PAIN - Stated complaint Stated Complaint: R SIDE CP - Chief complaint Chief Complaint: General - History obtained from History obtained from: Patient - History of Present Illness Timing - onset: How many weeks ago (03/04) Timing - onset during: Rest Timing - duration: Weeks (2) Timing - details: Gradual onset, Still present Quality: Dull, Pain Location: Right chest Radiation: No: Jaw, Neck, Back, Abdominal, Left upper extremity, Right upper extremity Improved by: Rest Worsened by: Movement, Palpation, Position Associated symptoms: Feeling faint / dizzy, Cough. No: Shortness of air, Diaphoresis, Nausea, Vomiting, General Weakness, Palpitations Similar symptoms before: Has not had sx before Recently seen: Emergency Dept (lots of visits) - Additional information Additional information: 25-year-old male with a particular type of obsessive-compulsive disorder has now developed some pain in the right side of his chest wall and he has pain with deep inspiration and cough. He has an additional pain in the right lateral thigh up high and he is concerned that he is having deep vein thrombosis and pulmonary embolism. He looked these things up and he thinks there is a connection between the two. He does indicate that he will hit himself frequently on the side of his leg during one of his bouts of OCD. He is concerned that he has a blood clot there and this has gone to his lung. He also indicates that he has been sober for the past 19 days. Review of Systems Constitutional: denies: Fever Eyes: denies: Decreased vision Ears: denies: Ear pain Nose: denies: Rhinorrhea / runny nose, Congestion Throat: denies: Sore throat Cardiac: reports: Chest pain / pressure. denies: Palpitations, Pedal edema, Calf pain Respiratory: reports: Cough. denies: Dyspnea, Wheezing GI: denies: Abdominal Pain, Nausea, Vomiting : denies: Dysuria, Frequency Skin: denies: Rash Musculoskeletal: reports: Extremity pain. denies: Neck pain, Back pain Neurologic: denies: Generalized weakness, Focal weakness, Numbness PD PAST MEDICAL HISTORY - Past Medical History Past Medical History: Yes Cardiovascular: None Respiratory: None Neuro: None Endocrine/Autoimmune: None GI: None : None HEENT: None Psych: Anxiety, Obsessive compulsive disorder Musculoskeletal: None Derm: None - Past Surgical History Past Surgical History: No - Present Medications Home Medications: Ambulatory Orders Medication Instructions Recorded Confirmed Sertraline HCl 100 mg PO DAILY 08/28/20 09/16/20 hydrOXYzine pamoate [Hydroxyzine 25 mg PO Q6HR PRN #20 09/01/20 09/16/20 Pamoate] ARIPiprazole [Aripiprazole] 10 mg PO DAILY 09/16/20 09/16/20 Gabapentin [Neurontin] 100 mg PO DAILY 09/16/20 09/16/20 - Allergies Allergies/Adverse Reactions: Allergies Allergy/AdvReac Type Severity Reaction Status Date / Time No Known Drug Allergies Allergy Verified 09/16/20 02:02 - Social History Does the pt smoke?: No Smoking Status: Never smoker Does the pt drink ETOH?: Yes Does the pt have substance abuse?: No - Immunizations Immunizations are current?: Yes - POLST Patient has POLST: No PD ED PE NORMAL - Vitals Vital signs reviewed: Yes (normal ) - General General: Alert and oriented X 3, No acute distress, Well developed/nourished - HEENT HEENT: Atraumatic, PERRL, EOMI - Neck Neck: Supple, no meningeal sign, No bony TTP - Cardiac Cardiac: RRR, No murmur - Respiratory Respiratory: No respiratory distress, Clear bilaterally, Other (minimal chest wall tenderness to specific rib on right just below right breast. ) - Abdomen Abdomen: Normal bowel sounds, Soft, Non tender, Non distended, No organomegaly - Back Back: No CVA TTP, No spinal TTP - Derm Derm: Normal color, Warm and dry, No rash - Extremities Extremities: No deformity, No edema, Other (minimal tenderness to the upper lateral thigh at the level just below the anterior superior illiac crest. ) - Neuro Neuro: Alert and oriented X 3, administrative office manager 2-12 intact, No motor deficit, No sensory deficit, Normal speech Eye Opening: Spontaneous Motor: Obeys Commands Verbal: Oriented GCS Score: 15 - Psych Psych: Normal mood, Normal affect Results - Vitals Vitals: Vital Signs - 24 hr 09/16/20 09/16/20 01:55 03:49 Temperature 36.2 C L Heart Rate 66 67 Respiratory 16 18 Rate Blood Pressure 111/69 144/80 H O2 Saturation 99 100 Oxygen O2 Source Room air - Labs Labs: Laboratory Tests 09/16/20 09/16/20 09/16/20 02:56 02:56 02:56 WBC 6.0 RBC 5.07 Hgb 15.2 Hct 46.0 MCV 90.7 MCH 30.0 MCHC 33.0 RDW 12.7 Plt Count 334 MPV 10.1 Neut # (Auto) 3.0 Lymph # (Auto) 2.2 Menard # (Auto) 0.6 Eos # (Auto) 0.1 Baso # (Auto) 0.0 Absolute Nucleated RBC 0.00 Nucleated RBC % 0.0 D-Dimer < 200.0 L Sodium 137 Potassium 4.3 Chloride 102 Carbon Dioxide 26 Anion Gap 9.0 BUN 10 Creatinine 1.0 Estimated GFR (MDRD) 109 Glucose 108 H Calcium 9.5 Total Bilirubin 1.1 H AST 41 ALT 48 Alkaline Phosphatase 47 Total Protein 8.0 Albumin 4.8 Globulin 3.2 Albumin/Globulin Ratio 1.5 Lipase 39 PD MEDICAL DECISION MAKING - ED course Complexity details: reviewed results, re-evaluated patient, considered differential, d/w patient ED course: 25-year-old male with history of OCD presents today with an obsession about a pain to the right lateral thigh and a connection to a pain in his right chest wall. We were able to reassure the patient that these were not an issue by explaining the D-dimer test and provided an x-ray of the patient's chest. Both of these were without abnormality. The patient was satisfied with the explanation and will try to discontinue the process of hitting himself in the side of the leg. Departure - Departure Disposition: 01 Home, Self Care Clinical Impression: Chest wall pain Condition: Stable Instructions: ED Strain Chest Wall Follow-Up: [facility] [Provider Group] Discharge Date/Time: 09/16/20 03:50
[2020-09-16 03:06] LABS: BASOPHILS % (AUTO) 0.7 %; EOSINOPHILS # (AUTO) 0.1 10^3/uL (0.0-0.7); EOSINOPHILS % (AUTO) 1.5 %; HGB - HEMOGLOBIN 15.2 g/dL (14.0-18.0); LYMPHOCYTES # (AUTO) 2.2 10^3/uL (1.5-3.5); LYMPHOCYTES % (AUTO) 36.7 %; MEAN CORPUSCULAR VOLUME 90.7 fL (80.0-94.0); MEAN PLATELET VOLUME 10.1 fL (7.4-11.4); MONOCYTES # (AUTO) 0.6 10^3/uL (0.0-1.0); MONOCYTES % (AUTO) 10.7 %; NEUTROPHILS % (AUTO) 50.2 %; PLT - PLATELET COUNT 334 10^3/uL (130-450); RED BLOOD COUNT 5.07 10^6/uL (4.70-6.10); RED CELL DISTRIBUTION WIDTH 12.7 % (12.0-15.0)
[2020-09-16 03:14] LABS: ALBUMIN 4.8 g/dL (3.2-5.5); ALBUMIN/GLOBULIN RATIO 1.5 (1.0-2.2); BILIRUBIN,TOTAL 1.1 mg/dL (0.2-1.0); CALCIUM 9.5 mg/dL (8.5-10.3); POTASSIUM 4.3 mmol/L (3.5-5.0)
[2020-09-16 03:49] VITALS: BP 144/80
--- NOTE | 2020-09-16 09:32 | XRAY Report ---
PROCEDURE: Chest 2 View X-Ray INDICATIONS: right sided chest pain TECHNIQUE: 2 view(s) of the chest. COMPARISON: None. FINDINGS: Surgical changes and devices: None. Lungs and pleura: No pleural effusions or pneumothorax. Lungs are clear. Mediastinum: Mediastinal contours are normal. Heart size is normal. Bones and chest wall: No suspicious bony abnormalities. Soft tissues appear unremarkable. IMPRESSION: Normal chest x-rays Note: Final report is concordant with preliminary report provided by [facility] Reviewed by: Kushal Corrales MD on 09/16/2020 8:30 AM [facility] Approved by: Kushal Corrales MD on 09/16/2020 8:30 AM AKDT Station ID: [id number]
== END 2020-09-16 03:50 | disposition home or self-care (01) ==
LOC: ED 01:51
DX: R07.89 Other chest pain (principal); F42.9 Obsessive-compulsive disorder, unspecified
CPT/HCPCS: 36415; 80053; 83690; 85025; 85379; 99283; 99284

== ENCOUNTER 2020-10-13 23:12 | Outpatient (CLI) | payer MEDICAID | END 2020-10-13 23:13 | disposition EMS.NT | LOC: EMS 23:12 | DX: F41.9 Anxiety disorder, unspecified (principal) ==

== ENCOUNTER 2020-10-21 23:26 | Emergency (ER) | payer MEDICAID ==
[2020-10-21 23:40] VITALS: BP 116/74
--- NOTE | 2020-10-22 00:08 | ED Physician Documentation ---
History of Present Illness - Stated complaint Stated Complaint: WITHDRAWLS - Chief complaint Chief Complaint: MHE - History obtained from History obtained from: Patient - Additonal information Additional information: 25-year-old man with history of mental illness, frequent ED visits for various reasons, presents stating that he is in alcohol withdrawal after stopping drinking in August. Patient endorses anxiety and feeling "a chemical imbalance in my brain". No other complaints at this time. Review of Systems Ten Systems: 10 systems reviewed and negative Constitutional: denies: Fever, Chills Cardiac: denies: Chest pain / pressure Respiratory: denies: Dyspnea Neurologic: denies: Focal weakness, Numbness, Headache Psychiatric: reports: Anxiety. denies: Suicidal, Homicidal, Hallucinations PD PAST MEDICAL HISTORY - Past Medical History Past Medical History: Yes Cardiovascular: None Respiratory: None Neuro: None Endocrine/Autoimmune: None GI: None : None HEENT: None Psych: Anxiety, Obsessive compulsive disorder Musculoskeletal: None Derm: None Other Past Medical History: hx of alcohol abuse - Past Surgical History Past Surgical History: No - Present Medications Home Medications: Ambulatory Orders Medication Instructions Recorded Confirmed hydrOXYzine HCL [Hydroxyzine HCl] 25 mg PO Q8H PRN #30 tablet 10/22/20 - Allergies Allergies/Adverse Reactions: Allergies Allergy/AdvReac Type Severity Reaction Status Date / Time No Known Drug Allergies Allergy Verified 10/21/20 23:39 - Social History Does the pt smoke?: No Smoking Status: Never smoker Does the pt drink ETOH?: No Does the pt have substance abuse?: No - Immunizations Immunizations are current?: Yes - POLST Patient has POLST: No PD ED PE NORMAL - Vitals Vital signs reviewed: Yes - General General: Alert and oriented X 3, No acute distress, Well developed/nourished - HEENT HEENT: Atraumatic, PERRL, EOMI - Neck Neck: Supple, no meningeal sign - Cardiac Cardiac: RRR - Respiratory Respiratory: No respiratory distress, Clear bilaterally - Abdomen Abdomen: Non tender, Non distended - Derm Derm: Normal color - Extremities Extremities: No deformity - Neuro Neuro: Alert and oriented X 3, 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, No motor deficit, No sensory deficit - Psych Psych: Normal mood, Normal affect Results - Vitals Vitals: Vital Signs - 24 hr 10/21/20 10/22/20 23:30 00:21 Temperature 36.2 C L 36.2 C L Heart Rate 43 L 41 L Respiratory 18 16 Rate Blood Pressure 116/74 116/74 O2 Saturation 99 100 Oxygen O2 Source Room air - EKG (time done) 0004 Rate: Rate (enter#) (41) Rhythm: Sinus bradycardia [place]: Normal Intervals: Other (MT 201) QRS: Normal Ischemia: Other (benign early repol) PD MEDICAL DECISION MAKING - ED course ED course: 25yM, frequent ED user with undiagnosed mental illness, p/w statement that he is withdrawing from alcohol. CIWA 0. Last etoh August. He requested script for ativan and I told him I could provide atarax. patient with asymptomatic bradycardia, ekg noncontributory. Patient to f/u with PMD and with psych resources he has been provided on previous visits. Departure - Departure Disposition: 01 Home, Self Care Clinical Impression: Anxiety Condition: Good Instructions: ED Stress React Prescriptions: hydrOXYzine HCL [Hydroxyzine HCl] 25 mg PO Q8H PRN #30 tablet PRN Reason: Anxiety Comments: You are seen in the emergency department for anxiety. I am prescribing Atarax (hydroxyzine), antianxiety medication that is nonaddictive. Please return to the emergency department if you have any new or worsening symptoms or other concerns. Follow-up with outpatient psychiatry. Discharge Date/Time: 10/22/20 00:24
== END 2020-10-22 00:24 | disposition home or self-care (01) ==
LOC: ED 23:26
DX: F41.9 Anxiety disorder, unspecified (principal); R00.1 Bradycardia, unspecified
CPT/HCPCS: 93005; 99283; 99284

== ENCOUNTER 2020-11-06 16:42 | Emergency (ER) | payer MEDICAID ==
--- NOTE | 2020-11-06 18:42 | ED Physician Documentation ---
History of Present Illness - Stated complaint Stated Complaint: EAR/HEAD PX - Chief complaint Chief Complaint: Heent - History obtained from History obtained from: Patient - History of Present Illness Timing: How many weeks ago (1) Pain level max: 5 Pain level now: 0 - Additonal information Additional information: Patient is a 25-year-old male who presents to the emergency department after being diagnosed with an ear infection at an urgent care earlier today. He was given a prescription, but stated that he had more questions and came here for evaluation. He states that sometimes he feels lightheaded when he stands up quickly and sometimes has headaches on the right side of his head. These seem to be worse over the past 24 hours. No fevers. No congestion. No cough. Currently is asymptomatic. Review of Systems Constitutional: denies: Fever, Chills GI: denies: Vomiting, Diarrhea Skin: denies: Rash Musculoskeletal: denies: Neck pain, Back pain PD PAST MEDICAL HISTORY - Past Medical History Past Medical History: Yes Cardiovascular: None Respiratory: None Neuro: None Endocrine/Autoimmune: None GI: None : None HEENT: None Psych: Anxiety, Obsessive compulsive disorder Musculoskeletal: None Derm: None - Past Surgical History Past Surgical History: No - Present Medications Home Medications: Ambulatory Orders Medication Instructions Recorded Confirmed No Known Home Medications 11/06/20 11/06/20 - Allergies Allergies/Adverse Reactions: Allergies Allergy/AdvReac Type Severity Reaction Status Date / Time No Known Drug Allergies Allergy Verified 11/06/20 19:34 - Social History Does the pt smoke?: No Smoking Status: Never smoker Does the pt drink ETOH?: No Does the pt have substance abuse?: No - Immunizations Immunizations are current?: No Immunizations: Other immun not current - POLST Patient has POLST: No PD ED PE NORMAL - Vitals Vital signs reviewed: Yes - General General: Alert and oriented X 3, No acute distress, Well developed/nourished - HEENT HEENT: PERRL, Moist mucous membranes, Pharynx benign, Other (Left TM is normal. Right TM is erythematous, dull, bulging with loss of landmarks. 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 Recommend that he fill his antibiotics and see if his symptoms of lightheadedness when standing quickly, intermittent headaches improve as the ear infection is treated. No evidence of intracranial hemorrhage, subarachnoid hemorrhage. Patient counseled regarding signs and symptoms for which I believe and urgent re-evaluation would be necessary. Patient with good understanding of and agreement to plan and is comfortable going home at this time This document was made in part using voice recognition software. While efforts are made to proofread this document, sound alike and grammatical errors may occur. Departure - Departure Disposition: 01 Home, Self Care Clinical Impression: Otitis media Qualifiers: Otitis media type: suppurative Chronicity: acute Laterality: right Recurrence: non-recurrent Spontaneous tympanic membrane rupture: without spontaneous rupture Qualified Code(s): H66.001 - Acute suppurative otitis media without spontaneous rupture of ear drum, right ear Condition: Good Instructions: ED Otitis Media Acute Adult Follow-Up: your,doctor as needed [Other] Comments: Please follow-up with your doctor as needed for further care. Return if you worsen. Please take the antibiotics as previously prescribed. Discharge Date/Time: 11/06/20 18:57
[2020-11-06 18:48] VITALS: BP 132/47
== END 2020-11-06 18:57 | disposition home or self-care (01) ==
LOC: ED 16:42
DX: H66.001 Acute suppurative otitis media without spontaneous rupture of ear drum, right ear (principal)
CPT/HCPCS: 99282; 99283

== ENCOUNTER 2020-11-06 19:30 | Emergency (ER) | payer MEDICAID ==
[2020-11-06 19:37] VITALS: BP 128/88
[2020-11-06] MEDS ORDERED: AMOXICILLIN 250 MG CAPSULE PO STA (19:52)
--- NOTE | 2020-11-06 19:53 | ED Physician Documentation ---
History of Present Illness - Stated complaint Stated Complaint: LIGHTHEADED,DROWSY - Chief complaint Chief Complaint: General - History obtained from History obtained from: Patient - History of Present Illness Timing: Today Pain level max: 0 Pain level now: 0 - Additonal information Additional information: Patient was just discharged after being seen for otitis media. He initially did not want a dose of antibiotics here but as the pharmacies are closed, he now wants a dose of antibiotics. Review of Systems Constitutional: denies: Fever PD PAST MEDICAL HISTORY - Past Medical History Cardiovascular: None Respiratory: None Neuro: None Endocrine/Autoimmune: None GI: None : None HEENT: None Psych: Anxiety, Obsessive compulsive disorder Musculoskeletal: None Derm: None - Past Surgical History Past Surgical History: No - Present Medications Home Medications: Ambulatory Orders Medication Instructions Recorded Confirmed No Known Home Medications 11/06/20 11/06/20 - Allergies Allergies/Adverse Reactions: Allergies Allergy/AdvReac Type Severity Reaction Status Date / Time No Known Drug Allergies Allergy Verified 11/06/20 19:34 - Social History Does the pt smoke?: No Smoking Status: Never smoker Does the pt drink ETOH?: No Does the pt have substance abuse?: No - Immunizations Immunizations are current?: No Immunizations: Other immun not current - POLST Patient has POLST: No PD ED PE NORMAL - Vitals Vital signs reviewed: Yes - General General: Alert and oriented X 3, No acute distress - Derm Derm: Warm and dry - Neuro Neuro: Alert and oriented X 3 Results - Vitals Vitals: Vital Signs - 24 hr 11/06/20 19:34 Temperature 36.5 C Heart Rate 60 Respiratory 16 Rate Blood Pressure 128/88 H O2 Saturation 98 Oxygen O2 Source Room air PD MEDICAL DECISION MAKING - ED course Complexity details: considered differential, d/w patient ED course: Patient given a dose of amoxicillin. He will fill the rest of his prescription from the urgent care in the morning. This document was made in part using voice recognition software. While efforts are made to proofread this document, sound alike and grammatical errors may occur. Departure - Departure Disposition: 01 Home, Self Care Clinical Impression: Otitis media Qualifiers: Otitis media type: suppurative Chronicity: acute Laterality: right Recurrence: non-recurrent Spontaneous tympanic membrane rupture: without spontaneous rupture Qualified Code(s): H66.001 - Acute suppurative otitis media without spontaneous rupture of ear drum, right ear Condition: Good Instructions: ED Otitis Media Acute Adult Follow-Up: Provider,Other [Primary Care Provider] - Within 1 week Comments: Please fill your antibiotics as previously prescribed. You were given the first dose tonight. Your symptoms should improve with treatment. Discharge Date/Time: 11/06/20 19:58
== END 2020-11-06 19:58 | disposition home or self-care (01) ==
LOC: ED 19:30
DX: Z76.89 Persons encountering health services in other specified circumstances (principal); H66.001 Acute suppurative otitis media without spontaneous rupture of ear drum, right ear
CPT/HCPCS: 99282; 99283; A9270

== ENCOUNTER 2020-11-18 21:13 | Emergency (ER) | payer MEDICAID ==
[2020-11-18] MEDS ORDERED: CHERRY SYRUP 10 ML UDC PO ONE (22:29)
[2020-11-18] MEDS ORDERED: DEXAMETHASONE 10 MG/ML VIAL PO STA (22:29)
--- NOTE | 2020-11-18 22:32 | ED Physician Documentation ---
PD HPI HEENT - Stated complaint Stated Complaint: RT EAR DISCOMFORT - Chief complaint Chief Complaint: Heent - History obtained from History obtained from: Patient - History of Present Illness Timing - onset: How many days ago (10) Timing - duration: Days (10) Timing - details: Gradual onset, Still present, Waxing and waning Location: Left ear Improves: Medication Worsens: Noise Associated symptoms: Swollen nodes. No: Fever, Congestion, Rhinorrhea, Cough Similar symptoms before: Diagnosis (OM) Recently seen: Clinic, Emergency Dept - Additional information Additional information: 25-year-old male with a peculiar type of obsessive-compulsive disorder has developed otitis media he was prescribed amoxicillin at the walk in clinic, then came to the ED with more questions and not wanting to fill the antibiotic. He came back to the ED the same day to ask for antibiotic after the pharmacy had closed. He took a single dose of this felt that it caused some increased sounds in his ear he became concerned that he might have a problem with his heart and discontinued the medication. He has persistence of symptoms he has some whooshing sound in his ear periodically he does not have a cough he does have a headache and some lymph node swelling. He has symptoms bilaterally worse on the left. Review of Systems Constitutional: denies: Fever Eyes: denies: Decreased vision Ears: reports: Ear pain, Tinnitus/ringing Nose: denies: Rhinorrhea / runny nose, Congestion Throat: denies: Sore throat Respiratory: denies: Cough PD PAST MEDICAL HISTORY - Past Medical History Past Medical History: Yes Cardiovascular: None Respiratory: None Neuro: None Endocrine/Autoimmune: None GI: None : None HEENT: None Psych: Anxiety, Obsessive compulsive disorder Musculoskeletal: None Derm: None - Past Surgical History Past Surgical History: No - Present Medications Home Medications: Ambulatory Orders Medication Instructions Recorded Confirmed Amoxicillin 500 mg PO TID 11/18/20 11/18/20 Azithromycin [Zithromax] 250 mg PO DAILY #6 tablet 11/18/20 LORazepam [Ativan] 1 mg PO BID PRN 11/18/20 11/18/20 PARoxetine [Paxil] 10 mg PO DAILY 11/18/20 11/18/20 - Allergies Allergies/Adverse Reactions: Allergies Allergy/AdvReac Type Severity Reaction Status Date / Time No Known Drug Allergies Allergy Verified 11/06/20 19:34 - Social History Does the pt smoke?: No Smoking Status: Never smoker Does the pt drink ETOH?: No Does the pt have substance abuse?: No - Immunizations Immunizations are current?: No Immunizations: Other immun not current - POLST Patient has POLST: No PD ED PE NORMAL - Vitals Vital signs reviewed: Yes (normal ) - General General: Alert and oriented X 3, No acute distress, Well developed/nourished - HEENT HEENT: Atraumatic, PERRL, EOMI, Pharynx benign, Other (The right TM is mildly erythematous with retained landmarks the left is more involved with distortion of the landmarks.) - Neck Neck: Supple, no meningeal sign, No bony TTP, Other (Shotty adenopathy bilaterally worse on the right) - Cardiac Cardiac: RRR, No murmur - Respiratory Respiratory: No respiratory distress, Clear bilaterally - Abdomen Abdomen: Soft, Non tender - Back Back: No CVA TTP, No spinal TTP - Derm Derm: Normal color, Warm and dry, No rash - Extremities Extremities: No deformity, No edema - Neuro Neuro: Alert and oriented X 3, 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 He has had a single dose of amoxicillin 10 days ago. He has some mild inflammation in the right ear which was previously described as bulging. Today this is improved. He has some erythema to the left side and he has symptoms. I discussed with the patient the anatomy and course of otitis and I have offered to give the patient a dose of dexamethasone which he is willing to take. I will also prescribed azithromycin. Whether he will take it is up to him. He may not require this. Departure - Departure Disposition: 01 Home, Self Care Clinical Impression: Otitis media Qualifiers: Otitis media type: suppurative Chronicity: acute Laterality: bilateral Recurrence: not specified as recurrent Spontaneous tympanic membrane rupture: without spontaneous rupture Qualified Code(s): H66.003 - Acute suppurative otitis media without spontaneous rupture of ear drum, bilateral Condition: Stable Instructions: ED Otitis Media Acute Adult Follow-Up: [facility] [Provider Group] Prescriptions: Azithromycin [Zithromax] 250 mg PO DAILY #6 tablet
[2020-11-18 22:47] VITALS: BP 102/64
== END 2020-11-18 22:46 | disposition home or self-care (01) ==
LOC: ED 21:13
DX: H66.003 Acute suppurative otitis media without spontaneous rupture of ear drum, bilateral (principal)
CPT/HCPCS: 99282; 99283; A9270

== ENCOUNTER 2020-12-03 06:02 | Emergency (ER) | payer MEDICAID ==
--- NOTE | 2020-12-03 06:31 | ED Physician Documentation ---
History of Present Illness - Stated complaint Stated Complaint: NECK PX - Chief complaint Chief Complaint: General - History obtained from History obtained from: Patient - History of Present Illness Timing: Today - Additonal information Additional information: frequent visits to this ED. This is his fifteenth [facility] ED visit over past 8 months. As with most previous visits, he has a long list of various symptoms over various time frames. He initially says his symptoms started this morning, but in further discussion, he references many other of his subacute and chronic issues. His chief concern on todays visit is right neck swelling, dizziness, and headache (right-sided). He is worried that this is possibly related to recent right-sided ear infection, and thinks the right nexk swelling is a thyroid problem , and enlarged lymph node, or a vascular issue. He then goes on to describe many of his recurrent c/o such as epigastric and LUQ burning pain that is worse when he pushes on the right side of his neck, palpitations, shortness of breath, sensation of either diminished or increased blood flow to his groin that seems to have triggers at times such as movement of his right thumb. Review of Systems Constitutional: denies: Fever Eyes: reports: Reviewed and negative Ears: denies: Loss of hearing, Ear pain, Drainage/discharge, Tinnitus/ringing Throat: denies: Sore throat Cardiac: reports: Palpitations Respiratory: reports: Dyspnea. denies: Cough GI: reports: Abdominal Pain (burning). denies: Nausea, Vomiting : denies: Dysuria Skin: denies: Rash Musculoskeletal: reports: Neck pain Neurologic: reports: Headache (right-sided) PD PAST MEDICAL HISTORY - Past Medical History Cardiovascular: None Respiratory: None Neuro: None Endocrine/Autoimmune: None GI: None : None HEENT: None Psych: Anxiety, Obsessive compulsive disorder Musculoskeletal: None Derm: None - Past Surgical History Past Surgical History: No - Present Medications Home Medications: Ambulatory Orders Medication Instructions Recorded Confirmed Amoxicillin 500 mg PO TID 11/18/20 11/18/20 Azithromycin [Zithromax] 250 mg PO DAILY #6 tablet 11/18/20 LORazepam [Ativan] 1 mg PO BID PRN 11/18/20 11/18/20 PARoxetine [Paxil] 10 mg PO DAILY 11/18/20 11/18/20 - Allergies Allergies/Adverse Reactions: Allergies Allergy/AdvReac Type Severity Reaction Status Date / Time No Known Drug Allergies Allergy Verified 11/06/20 19:34 - Social History Does the pt smoke?: No Smoking Status: Never smoker Does the pt drink ETOH?: No Does the pt have substance abuse?: No - Immunizations Immunizations are current?: No Immunizations: Other immun not current - POLST Patient has POLST: No PD ED PE NORMAL - Vitals Vital signs reviewed: Yes - General General: Alert and oriented X 3, No acute distress, Well developed/nourished - HEENT HEENT: PERRL, EOMI, Ears normal, Moist mucous membranes, Pharynx benign - Neck Neck: Supple, no meningeal sign, No adenopathy, Thyroid normal, Other (fullness and mild TTP over sternocleidomastoid muscle (right)) - Cardiac Cardiac: RRR, No murmur - Respiratory Respiratory: No respiratory distress, Clear bilaterally - Abdomen Abdomen: Soft, Non tender - Derm Derm: Normal color, Warm and dry Results - Vitals Vitals: Oxygen O2 Source Room air - Labs Labs: Laboratory Tests 12/03/20 12/03/20 07:17 07:17 WBC 5.7 RBC 4.90 Hgb 14.5 Hct 44.1 MCV 90.0 MCH 29.6 MCHC 32.9 RDW 12.9 Plt Count 262 MPV 10.3 Neut # (Auto) 3.1 Lymph # (Auto) 2.1 Vance # (Auto) 0.5 Eos # (Auto) 0.1 Baso # (Auto) 0.0 Absolute Nucleated RBC 0.00 Nucleated RBC % 0.0 TSH 0.99 PD MEDICAL DECISION MAKING - ED course Complexity details: reviewed old records, reviewed results, re-evaluated patient, considered differential, d/w patient ED course: This is a polite patient who unfortunately uses the ED inappropriately (frequent visits, often for recurrent c/o that have been investigated as appropriate at the time and which can be further discussed in outpatient setting; often has trivial, even bizarre c/o such as sensation of blood flow issues to his groin with specific triggers such as moving his thumb; he has even presented to ED simply with questions about a recently prescribed medication). He is reassurable to some extent, although it is time-consuming to do so and often he needs to review and even re-review results an reassurance given for a given c/o. Jesse, his chief concern is regarding fullness and mild TTP over anterolateral neck. He has a fullness in this area that is directly over the mid-portion of the sternocleidomastoid strap muscle, which I demonstrated for him by having him try to lift up his head against resistance against my hand, which flexed these muscles making them more prominent; I then palpated along the right side muscle, and he agreed the discomfort was associated with palpation of this exact muscular structure. As there was question of some tenderness underlying this on right side of neck, a CBC and TSH were performed and the results are normal . We discussed the results and he was very much reassured, at least for the time being. I again strongly encouraged him to seek outpatient follow up and to only use the emergency department for signs or symptoms that he feels represent a true medical emergency. If possible, this patient would probably benefit from regular (weekly) scheduled appointments with a general practitioner in outpatient setting. Departure - Departure Disposition: 01 Home, Self Care Clinical Impression: Neck pain, Anxiety Condition: Good Instructions: ED Neck Pain No Trauma Discharge Date/Time: 12/03/20 08:27
[2020-12-03 07:22] LABS: BASOPHILS % (AUTO) 0.5 %; EOSINOPHILS # (AUTO) 0.1 10^3/uL (0.0-0.7); EOSINOPHILS % (AUTO) 0.9 %; HCT - HEMATOCRIT 44.1 % (42.0-52.0); HGB - HEMOGLOBIN 14.5 g/dL (14.0-18.0); LYMPHOCYTES # (AUTO) 2.1 10^3/uL (1.5-3.5); LYMPHOCYTES % (AUTO) 35.9 %; MEAN CORPUSCULAR HEMOGLOBIN 29.6 pg (27.0-31.0); MEAN CORPUSCULAR HGB CONC 32.9 g/dL (32.0-36.0); MEAN PLATELET VOLUME 10.3 fL (7.4-11.4); MONOCYTES # (AUTO) 0.5 10^3/uL (0.0-1.0); MONOCYTES % (AUTO) 8.6 %; NEUTROPHILS # (AUTO) 3.1 10^3/uL (1.5-6.6); NEUTROPHILS % (AUTO) 53.9 %; PLT - PLATELET COUNT 262 10^3/uL (130-450); RED CELL DISTRIBUTION WIDTH 12.9 % (12.0-15.0); WHITE BLOOD COUNT 5.7 x10^3/uL (4.8-10.8)
[2020-12-03 08:28] VITALS: BP 122/69
== END 2020-12-03 08:27 | disposition home or self-care (01) ==
LOC: ED 06:02
DX: M54.2 Cervicalgia (principal); F41.9 Anxiety disorder, unspecified
CPT/HCPCS: 36415; 84443; 85025; 99283

== ENCOUNTER 2020-12-09 20:28 | Emergency (ER) | payer MEDICAID ==
[2020-12-09 21:49] VITALS: BP 144/68
--- NOTE | 2020-12-09 22:44 | ED Physician Documentation ---
PD HPI MHE - Stated complaint Stated Complaint: ANXIETY - Chief complaint Chief Complaint: MHE - History obtained from History obtained from: Patient - History of Present Illness Primary symptom: Anxiety Timing - onset: Today (tonight) Recently seen: Emergency Dept - Additional information Additional information: This is the 16th [facility] ED visit for this patient this year, previous visit was 6 days ago when I was also ED physician that evaluated him. He presents tonight due to vague sensation he has when he closes his eyes to sleep which he can best describe as either a spinning/dizzy sensation or anxiety, possibly both. He says he has ativan to be taken as needed for anxiety, but he did not take it because he generally prefers to avoid taking medication if he does not need to. he says he already feels much improved and does not feel he needs any testing or treatment at this time. Review of Systems Eyes: denies: Loss of vision, Decreased vision Ears: denies: Loss of hearing, Ear pain, Tinnitus/ringing Neurologic: denies: Headache PD PAST MEDICAL HISTORY - Past Medical History Cardiovascular: None Respiratory: None Neuro: None Endocrine/Autoimmune: None GI: None : None HEENT: None Psych: Anxiety, Obsessive compulsive disorder Musculoskeletal: None Derm: None - Past Surgical History Past Surgical History: No - Present Medications Home Medications: Ambulatory Orders Medication Instructions Recorded Confirmed LORazepam [Ativan] 1 mg PO BID PRN 11/18/20 12/09/20 PARoxetine [Paxil] 10 mg PO DAILY 11/18/20 12/09/20 - Allergies Allergies/Adverse Reactions: Allergies Allergy/AdvReac Type Severity Reaction Status Date / Time No Known Drug Allergies Allergy Verified 12/09/20 21:15 - Social History Does the pt smoke?: No Smoking Status: Never smoker Does the pt drink ETOH?: No Does the pt have substance abuse?: No - Immunizations Immunizations are current?: No Immunizations: Other immun not current - POLST Patient has POLST: No PD ED PE NORMAL - Vitals Vital signs reviewed: Yes - General General: Alert and oriented X 3, No acute distress, Well developed/nourished - HEENT HEENT: PERRL, EOMI - Cardiac Cardiac: RRR, No murmur - Neuro Neuro: Alert and oriented X 3 Results - Vitals Vitals: Vital Signs - 24 hr 12/09/20 12/09/20 21:09 21:48 Temperature 36.8 C 36.6 C Heart Rate 56 L 55 L Respiratory 18 14 Rate Blood Pressure 103/64 144/68 H O2 Saturation 96 100 Oxygen O2 Source Room air PD MEDICAL DECISION MAKING - ED course Complexity details: considered differential, d/w patient ED course: patient is well-known to this ED for frequent visits over past several months, mostly for various odd and seemingly unrelated symptoms. He has occasionally been very anxious on previous visits but he is calm, polite, and reassurable tonight, and during HPI states that he feels well and prefers to go home without any testing or treatment. Emergent testing is not indicated at this time, and I encouraged him to try the ativan he has at home should he feel anxious enough to need it. I expressed to him that it is commendable that he tries to avoid taking medications unless necessary, but given his frequent ED visits, I recommend he try the ativan (as prescribed) the next time he has symptoms that are anxiety-related, as this might relieve his symptoms and reduce the frequency of his ED visits. I encouraged him to ask his primary care provider about making regularly-scheduled appointments or to inquire about doing so with a mental health professional. Departure - Departure Disposition: 01 Home, Self Care Clinical Impression: Anxiety Condition: Good Instructions: ED Panic Attack Comments: As we discussed, I recommend that you take a dose of your ativan (lorazepam) prior to sleep tonight to see if that alleviates your symptoms. Discharge Date/Time: 12/09/20 22:56
== END 2020-12-09 22:56 | disposition home or self-care (01) ==
LOC: ED 20:28
DX: F41.9 Anxiety disorder, unspecified (principal)
CPT/HCPCS: 99281; 99284

== ENCOUNTER 2020-12-13 17:45 | Emergency (ER) | payer MEDICAID ==
[2020-12-13 18:27] VITALS: BP 129/71
--- NOTE | 2020-12-13 21:37 | ED Physician Documentation ---
History of Present Illness - Stated complaint Stated Complaint: MALE - Chief complaint Chief Complaint: General - History obtained from History obtained from: Patient - Additonal information Additional information: 25yM with mental illness and frequent visits to our emergency department for lower abdominal/pelvic/ related complaints p/w concern that he has an iliac aneurysm. patient states he was working out yesterday and felt a pulling sensation in the R inguinal area. he has been pressing on it and thinks there may be a lump. also, when he presses he notices electric sensation to the groin, and leg. denies urinary sx. Review of Systems Ten Systems: 10 systems reviewed and negative Constitutional: denies: Fever, Chills Cardiac: denies: Chest pain / pressure GI: denies: Abdominal Pain : denies: Dysuria, Testicular pain, Testicular mass PD PAST MEDICAL HISTORY - Past Medical History Cardiovascular: None Respiratory: None Neuro: None Endocrine/Autoimmune: None GI: None : None HEENT: None Psych: Anxiety, Obsessive compulsive disorder Musculoskeletal: None Derm: None - Past Surgical History Past Surgical History: No - Present Medications Home Medications: Ambulatory Orders Medication Instructions Recorded Confirmed LORazepam [Ativan] 1 mg PO BID PRN 11/18/20 12/14/20 PARoxetine [Paxil] 10 mg PO DAILY 11/18/20 12/14/20 - Allergies Allergies/Adverse Reactions: Allergies Allergy/AdvReac Type Severity Reaction Status Date / Time No Known Drug Allergies Allergy Verified 12/14/20 04:45 - Social History Does the pt smoke?: No Smoking Status: Never smoker Does the pt drink ETOH?: No Does the pt have substance abuse?: No - Immunizations Immunizations are current?: No Immunizations: Other immun not current - POLST Patient has POLST: No PD ED PE NORMAL - Vitals Vital signs reviewed: Yes - General General: Alert and oriented X 3, No acute distress, Well developed/nourished - HEENT HEENT: Atraumatic, PERRL, EOMI - Neck Neck: Supple, no meningeal sign - Cardiac Cardiac: RRR - Respiratory Respiratory: No respiratory distress, Clear bilaterally - Abdomen Abdomen: Non tender, Non distended, Other (R inguinal region without hernias or masses. 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 normal te sticular lie. nontender. no hernias or masses) - Derm Derm: Normal color, Warm and dry - Extremities Extremities: No deformity, Normal ROM s pain, Other (2+ BL DP pulses. normal sensation and cap refill) - Neuro Neuro: Alert and oriented X 3, No motor deficit, No sensory deficit - Psych Psych: Other (odd affect. anxious mood) Results - Vitals Vitals: Vital Signs - 24 hr 12/13/20 18:19 Temperature 37.5 C Heart Rate 58 L Respiratory 17 Rate Blood Pressure 129/71 O2 Saturation 99 Oxygen O2 Source Room air Procedures - General procedure General procedure: pocus of femoral artery and vein on the R without signs of abnormality. normal diameter. good flow. no LAD on ultrasound. no masses or abnormalities PD MEDICAL DECISION MAKING - ED course ED course: patient somewhat reassured by physical exam and bedside ultrasound. return precautions given. plan to f/u with pmd/WIC. Departure - Departure Disposition: 01 Home, Self Care Clinical Impression: Muscle strain Condition: Good Instructions: ED Spasm Muscle Comments: You are seen in the emergency department for muscle spasm. You do not have a hernia or an aneurysm of your femoral artery or vein. You have good blood flow to the femoral artery and vein on ultrasound. Your lymph nodes are not enlarged. Please follow-up with your primary doctor. Please also follow-up with outpatient mental health. Return to the emergency department you have any new or worsening symptoms or other concerns. Discharge Date/Time: 12/13/20 21:44
== END 2020-12-13 21:44 | disposition home or self-care (01) ==
LOC: ED 17:45
DX: S39.011A Strain of muscle, fascia and tendon of abdomen, initial encounter (principal); X50.9XXA Other and unspecified overexertion or strenuous movements or postures, initial encounter; Y93.B3 Activity, free weights; M62.838 Other muscle spasm
CPT/HCPCS: 99281; 99282

== ENCOUNTER 2020-12-14 04:26 | Emergency (ER) | payer MEDICAID ==
[2020-12-14 04:45] VITALS: BP 110/67
--- NOTE | 2020-12-14 05:04 | ED Physician Documentation ---
History of Present Illness - Stated complaint Stated Complaint: ABD ISSUES - Chief complaint Chief Complaint: Abd Pain - History obtained from History obtained from: Patient - Additonal information Additional information: 25yM seen earlier tonight for pain in R inguinal region/electric sensation to R groin region presents again for the same. patient states he actually feels much better now and thinks it was just his anxiety. denies symptoms at present Review of Systems Ten Systems: 10 systems reviewed and negative PD PAST MEDICAL HISTORY - Past Medical History Past Medical History: Yes Cardiovascular: None Respiratory: None Neuro: None Endocrine/Autoimmune: None GI: None : None HEENT: None Psych: Anxiety, Obsessive compulsive disorder Musculoskeletal: None Derm: None - Past Surgical History Past Surgical History: No - Present Medications Home Medications: Ambulatory Orders Medication Instructions Recorded Confirmed LORazepam [Ativan] 1 mg PO BID PRN 11/18/20 12/14/20 PARoxetine [Paxil] 10 mg PO DAILY 11/18/20 12/14/20 - Allergies Allergies/Adverse Reactions: Allergies Allergy/AdvReac Type Severity Reaction Status Date / Time No Known Drug Allergies Allergy Verified 12/14/20 04:45 - Social History Does the pt smoke?: No Smoking Status: Never smoker Does the pt drink ETOH?: No Does the pt have substance abuse?: No - Immunizations Immunizations are current?: No Immunizations: Other immun not current - POLST Patient has POLST: No PD ED PE NORMAL - Vitals Vital signs reviewed: Yes - General General: Alert and oriented X 3, No acute distress, Well developed/nourished - HEENT HEENT: Atraumatic, PERRL, EOMI - Neck Neck: Supple, no meningeal sign - Cardiac Cardiac: RRR - Respiratory Respiratory: No respiratory distress, Clear bilaterally - Abdomen Abdomen: Non tender, Non distended - Derm Derm: Normal color, Warm and dry - Extremities Extremities: No deformity - Neuro Neuro: Alert and oriented X 3 - Psych Psych: Other (anxious mood and affect) Results - Vitals Vitals: Vital Signs - 24 hr 12/14/20 04:35 Temperature 36.2 C L Heart Rate 47 L Respiratory 18 Rate Blood Pressure 110/67 O2 Saturation 100 Oxygen O2 Source Room air PD MEDICAL DECISION MAKING - ED course ED course: 25yM presents a second time this evening for odd sensation to R inguinal region. After speaking with and reexamining/reassurance, patient states he is feeling better and would like to go home. return precautions given. Departure - Departure Disposition: , Self Care Clinical Impression: Anxiety Condition: Good Instructions: ED Stress React Comments: You were seen in the emergency department for anxiety. Please follow up with your primary doctor or walk in clinic. return to the emergency department if you have any new or worsening symptoms or other concerns.
== END 2020-12-14 05:06 | disposition home or self-care (01) ==
LOC: ED 04:26
DX: F41.9 Anxiety disorder, unspecified (principal); R10.31 Right lower quadrant pain
CPT/HCPCS: 99281; 99283

== ENCOUNTER 2020-12-27 15:14 | Outpatient (CLI) | payer MEDICAID | END 2020-12-27 15:15 | disposition EMS.NT | LOC: EMS 15:14 | DX: R44.0 Auditory hallucinations (principal); R44.1 Visual hallucinations; R46.89 Other symptoms and signs involving appearance and behavior ==

== ENCOUNTER 2021-01-09 20:29 | Emergency (ER) | payer MEDICAID ==
--- NOTE | 2021-01-09 20:49 | ED Physician Documentation ---
PD HPI HEENT - Stated complaint Stated Complaint: RT EAR PRESSURE - Chief complaint Chief Complaint: Heent - History obtained from History obtained from: Patient - Additional information Additional information: Patient is a 25-year-old male past medical significant for anxiety, OCD presenting today with right ear pressure and "pulsatile tinnitus". Reports middle ear infection which he treated at home with erythromycin approximately 1 month ago. Since that time has had pressure behind his right ear that he states causes "an intense anxiety reaction". Also reports intermittent episodes of tinnitus. States he has normal hearing out of that ear. Denies any trauma or foreign body instrumentation to the ear. States that his symptoms are improved with vigorous nose blowing. He denies any fever, chills, chest pain, shortness of breath, headache, blurred vision, double vision, neck stiffness, abdominal pain, nausea, vomiting, diarrhea, constipation. Review of Systems Ten Systems: 10 systems reviewed and negative Constitutional: denies: Fever, Chills Eyes: denies: Loss of vision, Decreased vision Ears: reports: Tinnitus/ringing, Other (Right ear pressure). denies: Loss of hearing, Drainage/discharge, Foreign body Nose: denies: Rhinorrhea / runny nose, Congestion Throat: denies: Dental pain / toothache Cardiac: denies: Chest pain / pressure Respiratory: denies: Dyspnea GI: denies: Abdominal Pain : denies: Dysuria Skin: denies: Rash PD PAST MEDICAL HISTORY - Past Medical History Past Medical History: Yes Cardiovascular: None Respiratory: None Neuro: None Endocrine/Autoimmune: None GI: None : None HEENT: None Psych: Anxiety, Obsessive compulsive disorder Musculoskeletal: None Derm: None - Past Surgical History Past Surgical History: No - Present Medications Home Medications: Ambulatory Orders Medication Instructions Recorded Confirmed LORazepam [Ativan] 1 mg PO BID PRN 11/18/20 12/14/20 PARoxetine [Paxil] 10 mg PO DAILY 11/18/20 12/14/20 - Allergies Allergies/Adverse Reactions: Allergies Allergy/AdvReac Type Severity Reaction Status Date / Time No Known Drug Allergies Allergy Verified 01/09/21 20:38 - Social History Does the pt smoke?: No Smoking Status: Never smoker Does the pt drink ETOH?: No Does the pt have substance abuse?: No - Immunizations Immunizations are current?: No Immunizations: Other immun not current - POLST Patient has POLST: No PD ED PE NORMAL - Vitals Vital signs reviewed: Yes - General General: Alert and oriented X 3 - Neck Neck: Supple, no meningeal sign - Cardiac Cardiac: RRR - Respiratory Respiratory: No respiratory distress - Abdomen Abdomen: Normal bowel sounds - Male Male : Deferred - Rectal Rectal: Deferred PD ED PE EXPANDED - HEENT HEENT: Atraumatic, PERRL, EOMI. No: Head injury, R TM red, R TM dull, R TM bulging, R TM retracted, R TM loss of landmarks, L TM red, L TM dull, L TM bulging, L TM retracted, L TM loss of landmarks, Rhinorrhea (TMs normal bilaterally) Results - Vitals Vitals: Vital Signs - 24 hr 01/09/21 01/09/21 20:35 20:43 Temperature 37.1 C 37.1 C Heart Rate 56 L 59 L Respiratory 20 20 Rate Blood Pressure 139/74 H 139/74 H O2 Saturation 99 99 Oxygen O2 Source Room air PD MEDICAL DECISION MAKING - ED course Complexity details: d/w patient ED course: Patient is 25-year-old male presenting to the emergency department with a 1 month history of right ear pressure and intermittent tinnitus without hearing loss. Afebrile, hemodynamically stable on arrival to the emergency department. HEENT exam benign. Patient did endorse for recent history of right-sided otitis media which was treated at home with a course of erythromycin. Will this is a known ototoxic medication his normal hearing and only intermittent sympt oms of tinnitus make a severe ototoxic reaction unlikely and his overall presentation is most consistent with acute eustachian tube dysfunction. Will begin a course of oral and nasal decongestants and encourage follow-up with primary care for possible referral to ENT for persistent or worsening symptoms. Otherwise clear return precautions and follow-up instructions were given prior to discharge. Departure - Departure Disposition: Against Medical Advice Clinical Impression: Tinnitus, Eustachian tube dysfunction Condition: Fair Instructions: Tinnitus
[2021-01-09 21:06] VITALS: BP 135/72
== END 2021-01-09 21:04 | disposition home or self-care (01) ==
LOC: ED 20:29
DX: H93.A1 Pulsatile tinnitus, right ear (principal); H69.91 Unspecified Eustachian tube disorder, right ear; F41.9 Anxiety disorder, unspecified
CPT/HCPCS: 99282

== ENCOUNTER 2021-01-11 14:08 | Outpatient (CLI) | payer MEDICAID | END 2021-01-11 14:09 | disposition EMS.NT | LOC: EMS 14:08 | DX: F41.9 Anxiety disorder, unspecified (principal) ==

== ENCOUNTER 2021-01-11 15:17 | Outpatient (CLI) | payer MEDICAID | END 2021-01-11 15:18 | disposition critical access hospital (66) | LOC: EMS 15:17 | DX: F41.9 Anxiety disorder, unspecified (principal) | CPT/HCPCS: A0425; A0429; A0999 ==

== ENCOUNTER 2021-01-11 15:37 | Emergency (ER) | payer MEDICAID ==
[2021-01-11 15:46] VITALS: BP 139/76
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
== END 2021-01-11 17:35 | disposition home or self-care (01) ==
LOC: EDUNIT# → ED 15:37
DX: H93.13 Tinnitus, bilateral (principal); M79.641 Pain in right hand; F42.9 Obsessive-compulsive disorder, unspecified; F20.9 Schizophrenia, unspecified; Z86.19 Personal history of other infectious and parasitic diseases
CPT/HCPCS: 99283; 99284

== ENCOUNTER 2021-01-17 16:33 | Outpatient (CLI) | payer MEDICAID | END 2021-01-17 16:34 | disposition EMS.NT | LOC: EMS 16:33 | DX: F41.9 Anxiety disorder, unspecified (principal) ==

== ENCOUNTER 2021-01-17 22:47 | Emergency (ER) | payer MEDICAID ==
[2021-01-17 23:01] VITALS: BP 132/57
--- NOTE | 2021-01-17 23:19 | ED Physician Documentation ---
History of Present Illness - Stated complaint Stated Complaint: RLQ PX/HOT TO TOUCH - Chief complaint Chief Complaint: Abd Pain - History obtained from History obtained from: Patient - Additonal information Additional information: 25yM with pmh mental illness, frequent ED visits for somatic symptoms, p/w R midabdominal/lower abdominal pain moving to the R side a/w tinnitus X 1.5 weeks after having an ear infection about a month ago. pain is 3/10, intermittent, better when playing music. He says he did some crunches this week as a workout. patient also states he hears phantom noises but no clear voices/audio hallucinations. He is concerned about "somatosensory phenomena" and "dehiscence". denies fever, nausea, urinary sx, back pain, constipation or diarrhea. Review of Systems Ten Systems: 10 systems reviewed and negative GI: reports: Abdominal Pain PD PAST MEDICAL HISTORY - Past Medical History Past Medical History: Yes Cardiovascular: None Respiratory: None Neuro: None Endocrine/Autoimmune: None GI: None : None HEENT: None Psych: Anxiety, Obsessive compulsive disorder Musculoskeletal: None Derm: None - Past Surgical History Past Surgical History: No - Allergies Allergies/Adverse Reactions: Allergies Allergy/AdvReac Type Severity Reaction Status Date / Time No Known Drug Allergies Allergy Verified 01/17/21 23:00 - Social History Does the pt smoke?: No Smoking Status: Never smoker Does the pt drink ETOH?: No Does the pt have substance abuse?: No - Immunizations Immunizations are current?: No Immunizations: Other immun not current - POLST Patient has POLST: No PD ED PE NORMAL - Vitals Vital signs reviewed: Yes - General General: Alert and oriented X 3, No acute distress, Well developed/nourished - HEENT HEENT: Atraumatic, PERRL, EOMI - Neck Neck: Supple, no meningeal sign - Cardiac Cardiac: Other (sinus bradycardia) - Respiratory Respiratory: No respiratory distress, Clear bilaterally - Abdomen Abdomen: Non tender, Non distended, Other (negative ruelas sign. negative rovsing, obturator) - Derm Derm: Normal color, Warm and dry - Extremities Extremities: No deformity - Neuro Neuro: Alert and oriented X 3 - Psych Psych: Normal mood, Normal affect Results - Vitals Vitals: Vital Signs - 24 hr 01/17/21 22:58 Temperature 36.3 C L Heart Rate 51 L Respiratory 15 Rate Blood Pressure 132/57 H O2 Saturation 98 Oxygen O2 Source Room air PD MEDICAL DECISION MAKING - ED course ED course: 25yM p/w R midabdomen/RLQ pain moving to R side, described as spasmodic and associated with tinnitus. Abdominal exam completely benign. Low suspicion for appendicitis, GB pathology. d/w patient that I would like to take a urine sample and bloodwork to evaluate further but patient states he would prefer to follow up outpatient. return precautions given. Departure - Departure Disposition: Home, Self Care Clinical Impression: Anxiety, Abdominal spasms Instructions: Muscle Spasm Comments: You were seen in the emergency department for a feeling of pain or spasming associated with tendinitis. It does not look like there is an emergent cause for your symptoms at this time. Please return the emergency department you have any new or worsening symptoms or other concerns. Follow-up with [facility] for your appointment in January.
== END 2021-01-17 23:21 | disposition home or self-care (01) ==
LOC: ED 22:47
DX: M62.838 Other muscle spasm (principal); R10.31 Right lower quadrant pain; H93.19 Tinnitus, unspecified ear; F41.9 Anxiety disorder, unspecified
CPT/HCPCS: 99281; 99284

== ENCOUNTER 2021-01-19 16:03 | Emergency (ER) | payer MEDICAID ==
[2021-01-19 16:35] LABS: BASOPHILS % (AUTO) 0.4 %; EOSINOPHILS % (AUTO) 0.4 %; HCT - HEMATOCRIT 46.9 % (42.0-52.0); HGB - HEMOGLOBIN 15.5 g/dL (14.0-18.0); LYMPHOCYTES # (AUTO) 1.9 10^3/uL (1.5-3.5); LYMPHOCYTES % (AUTO) 20.3 %; MEAN CORPUSCULAR HEMOGLOBIN 29.6 pg (27.0-31.0); MEAN CORPUSCULAR VOLUME 89.7 fL (80.0-94.0); MEAN PLATELET VOLUME 10.3 fL (7.4-11.4); MONOCYTES # (AUTO) 0.7 10^3/uL (0.0-1.0); MONOCYTES % (AUTO) 7.2 %; NEUTROPHILS # (AUTO) 6.7 10^3/uL (1.5-6.6); NEUTROPHILS % (AUTO) 71.4 %; PLT - PLATELET COUNT 293 10^3/uL (130-450); RED BLOOD COUNT 5.23 10^6/uL (4.70-6.10); RED CELL DISTRIBUTION WIDTH 13.1 % (12.0-15.0); WHITE BLOOD COUNT 9.4 x10^3/uL (4.8-10.8)
[2021-01-19 16:39] LABS: MUDS CUTOFF CONCENTRATIONS CUTOFF CONC BELOW:
[2021-01-19 16:44] LABS: BILIRUBIN,URINE NEGATIVE (NEGATIVE); GLUCOSE, URINE (UA) NEGATIVE (NEGATIVE); KETONES,URINE (UA) NEGATIVE (NEGATIVE); LEUKOCYTE ESTERASE, URINE NEGATIVE (NEGATIVE); NITRITE,URINE NEGATIVE (NEGATIVE); OCCULT BLOOD,URINE NEGATIVE (NEGATIVE); PROTEIN,URINE NEGATIVE (NEGATIVE); UROBILINOGEN,URINE 0.2 (NORMAL) E.U./dL (NORMAL)
[2021-01-19 16:47] LABS: CLARITY,URINE CLEAR (CLEAR)
[2021-01-19 16:49] LABS: ACETAMINOPHEN < 10 ug/mL (10-30); ALBUMIN 4.8 g/dL (3.2-5.5); ALBUMIN/GLOBULIN RATIO 1.3 (1.0-2.2); ALKALINE PHOSPHATASE 46 IU/L (42-121); ALT ALANINE AMINOTRANSFERASE 42 IU/L (10-60); AST ASPARTATE AMINOTRANSFERASE 49 IU/L (10-42); BILIRUBIN,TOTAL 0.9 mg/dL (0.2-1.0); BUN - BLOOD UREA NITROGEN 11 mg/dL (6-20); CARBON DIOXIDE - CO2 29 mmol/L (21-32); CHLORIDE 100 mmol/L (101-111); CREATININE 1.1 mg/dL (0.6-1.2); ETOH - ETHANOL < 5.0 mg/dL; GFR - MDRD 97 (>89); GLUCOSE 93 mg/dL (70-100); LIPASE 39 U/L (22-51); POTASSIUM 3.8 mmol/L (3.5-5.0); SALICYLATE < 6.0 mg/dL; SODIUM 139 mmol/L (135-145); TOTAL PROTEIN 8.4 g/dL (6.7-8.2)
[2021-01-19 16:56] LABS: AMPHETAMINE SCREEN,URINE NEGATIVE (NEGATIVE); BARBITURATE SCREEN,UR NEGATIVE (NEGATIVE); BENZODIAZEPINES SCREEN, URINE NEGATIVE (NEGATIVE); COCAINE SCREEN URINE NEGATIVE (NEGATIVE); METHADONE SCREEN, URINE NEGATIVE (NEGATIVE); METHAMPHETAMINES SCREEN, URINE NEGATIVE (NEGATIVE); OPIATE SCREEN, URINE NEGATIVE (NEGATIVE); OXYCODONE SCREEN, URINE NEGATIVE (NEGATIVE); PROPOXYPHENE SCREEN, URINE NEGATIVE (NEGATIVE); THC CANNABINOID SCREEN, URINE NEGATIVE (NEGATIVE); TRICYCLIC ANTIDEPRESSANT,URINE NEGATIVE (NEGATIVE)
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
[2021-01-19] MEDS: OLANZapine ODT 5 MG TABLET TL STA ×2 (17:31→22:31)
[2021-01-19 17:51] LABS: B. PARAPERTUSSIS- RESP PCR PAN NOT DETECTED; B. PERTUSSIS- RESP PCR PANEL NOT DETECTED; C. PNEUMONIAE- RESP PCR PANEL NOT DETECTED; CORONAVIRUS 229E-RESP PCR NOT DETECTED; CORONAVIRUS HKU1-RESP PCR NOT DETECTED; CORONAVIRUS NL63-RESP PCR NOT DETECTED; CORONAVIRUS OC43-RESP PCR NOT DETECTED; HUMAN METAPNEUMOVIRUS NOT DETECTED; INFLUENZA A- RESP PCR PANEL NOT DETECTED; INFLUENZA B - RESP PCR PANEL NOT DETECTED; M. PNEUMONIAE- RESP PCR PANEL NOT DETECTED; PARAINFLUENZA VIRUS 1 NOT DETECTED; PARAINFLUENZA VIRUS 2 NOT DETECTED; PARAINFLUENZA VIRUS 3 NOT DETECTED; PARAINFLUENZA VIRUS 4 NOT DETECTED; RHINOVIRUS/ENTEROVIRUS NOT DETECTED; RSV- RESP PCR PANEL NOT DETECTED; SARS-CoV-2 -RESP PCR PANEL NOT DETECTED
[2021-01-19 23:27] VITALS: BP 140/71
== END 2021-01-19 23:54 | disposition home or self-care (01) ==
LOC: EDUNIT# → ED 16:03
DX: F29 Unspecified psychosis not due to a substance or known physiological condition (principal); F42.9 Obsessive-compulsive disorder, unspecified; Z59.00 Homelessness unspecified; Z20.822 Contact with and (suspected) exposure to COVID-19
CPT/HCPCS: 0202U; 36415; 80053; 80306; 80307; 80320; 80329; 81003; 83690; 84443; 85025; 99283; A9270; 81001; 87086

== ENCOUNTER 2021-01-22 20:09 | Emergency (ER) | payer MEDICAID ==
[2021-01-22 20:17] VITALS: BP 140/64
== END 2021-01-22 21:39 | disposition left against medical advice (07) ==
LOC: ED 20:09
DX: Z53.21 Procedure and treatment not carried out due to patient leaving prior to being seen by health care provider (principal)

== ENCOUNTER 2021-01-29 04:10 | Emergency (ER) | payer MEDICAID ==
[2021-01-29 04:20] VITALS: BP 129/67
[2021-01-29] MEDS ORDERED: DEXAMETHASONE 10 MG/ML VIAL PO STA (05:00)
[2021-01-29] MEDS ORDERED: CHERRY SYRUP 10 ML UDC PO ONE (05:00)
--- NOTE | 2021-01-29 05:01 | ED Physician Documentation ---
History of Present Illness - Stated complaint Stated Complaint: NECK PX - Chief complaint Chief Complaint: General - History obtained from History obtained from: Patient - History of Present Illness Timing: Today - Additonal information Additional information: 25-year-old male with a peculiar obsessive-compulsive disorder and anxiety has a chief complaint this morning of a pain in the right side of his neck. He feels this started after doing some crunches and he has pain with movement of his neck. He has had some pulsatile tinnitus out of the right ear but denies any cough fever or congestion.The patient has had multiple complaints of neck abnormality and ear problems. Symptoms seem vague and the patient indicates that he keeps feeling that he just needs to recheck this. Review of Systems Constitutional: denies: Fever Eyes: denies: Decreased vision Ears: reports: Tinnitus/ringing. denies: Ear pain, Drainage/discharge Nose: denies: Rhinorrhea / runny nose, Congestion Throat: denies: Dental pain / toothache, Sore throat Cardiac: denies: Chest pain / pressure, Palpitations Respiratory: denies: Dyspnea, Cough GI: denies: Abdominal Pain, Vomiting PD PAST MEDICAL HISTORY - Past Medical History Past Medical History: Yes Cardiovascular: None Respiratory: None Neuro: None Endocrine/Autoimmune: None GI: None : None HEENT: None Psych: Anxiety, Obsessive compulsive disorder Musculoskeletal: None Derm: None - Past Surgical History Past Surgical History: No - Present Medications Home Medications: Ambulatory Orders Medication Instructions Recorded Confirmed OLANZapine [Zyprexa] 10 mg PO DAILY #30 tablet 01/24/21 01/29/21 - Allergies Allergies/Adverse Reactions: Allergies Allergy/AdvReac Type Severity Reaction Status Date / Time No Known Drug Allergies Allergy Verified 01/29/21 04:19 - Social History Does the pt smoke?: No Smoking Status: Never smoker Does the pt drink ETOH?: No Does the pt have substance abuse?: No - Immunizations Immunizations are current?: No Immunizations: Other immun not current - POLST Patient has POLST: No PD ED PE NORMAL - Vitals Vital signs reviewed: Yes (Normal) - General General: Alert and oriented X 3, No acute distress, Well developed/nourished - HEENT HEENT: Atraumatic, PERRL, EOMI, Ears normal, Moist mucous membranes, Pharynx benign, Dentition benign - Neck Neck: Supple, no meningeal sign, No bony TTP, Other (There is no significant adenopathy to the right side of the neck there is some mild tenderness to the sternocleidomastoid.) - Cardiac Cardiac: RRR, No murmur - Respiratory Respiratory: No respiratory distress, Clear bilaterally - Abdomen Abdomen: Soft, Non tender - Back Back: No CVA TTP, No spinal TTP - Derm Derm: Normal color, Warm and dry, No rash - Extremities Extremities: No deformity, No edema - Neuro Neuro: Alert and oriented X 3, traffic attendant 2-12 intact, No motor deficit, No sensory deficit, Normal speech Eye Opening: Spontaneous Motor: Obeys Commands Verbal: Oriented GCS Score: 15 - Psych Psych: Normal mood, Normal affect Results - Vitals Vitals: Vital Signs - 24 hr 01/29/21 04:15 Temperature 36.2 C L Heart Rate 56 L Respiratory 16 Rate Blood Pressure 129/67 O2 Saturation 98 Oxygen O2 Source Room air PD MEDICAL DECISION MAKING - ED course Complexity details: considered differential, d/w patient ED course: 25-year-old male with pain to the right side of his neck has a benign examination he has had some exercise recently and has pain with movement of his neck into certain positions. I suspect this is a musculoskeletal injury. The patient does have some perseveration and obsession associated with his neck and ear on the right side. I have provided a dose of dexamethasone for the patient with the hopes of treating the musculoskeletal pain and the tinnitus. Departure - Departure Disposition: 01 Home, Self Care Clinical Impression: Neck pain Tinnitus Qualifiers: Laterality: right Qualified Code(s): H93.11 - Tinnitus, right ear Condition: Stable Instructions: ED Neck Pain No Trauma Follow-Up: [facility] [Provider Group]
== END 2021-01-29 05:11 | disposition home or self-care (01) ==
LOC: ED 04:10
DX: M54.2 Cervicalgia (principal); H93.11 Tinnitus, right ear; F42.9 Obsessive-compulsive disorder, unspecified; F41.9 Anxiety disorder, unspecified
CPT/HCPCS: 99282; 99283; A9270

== ENCOUNTER 2021-02-06 12:23 | Emergency (ER) | payer MEDICAID ==
--- NOTE | 2021-02-06 13:58 | ED Physician Documentation ---
PD HPI SKIN - Stated complaint Stated Complaint: RIGHT ARMPIT PX - Chief complaint Chief Complaint: General - History obtained from History obtained from: Patient - History of Present Illness Timing - onset: How many days ago (few) Timing - duration: Days (few) Timing - details: Gradual onset, Still present, Waxing and waning Location: Chest (he has noted a tender area right lateral chest in midaxillary line, but below the axilla itself. He feels slight lump feeling there. NO skin sores. Tender to touch. When he does palpate there, he says he feels a metallic taste in his mouth. He gets this tast slightly at other times too.) Quality / character: Painful (locally tender). No: Itchy, Discolored, Swelling, Draining Associated symptoms: No: Fever, N/V/D Similar symptoms before: Has not had sx before Recently seen: Clinic (seen by PMD a week ago and had new meds started of Fluoxetine and Ativan.) Review of Systems Constitutional: denies: Fever, Chills Nose: denies: Rhinorrhea / runny nose, Congestion Throat: denies: Sore throat Respiratory: denies: Cough GI: denies: Nausea, Vomiting, Diarrhea Skin: denies: Rash Musculoskeletal: denies: Neck pain, Back pain Neurologic: denies: Generalized weakness, Focal weakness, Numbness PD PAST MEDICAL HISTORY - Past Medical History Cardiovascular: None Respiratory: None Neuro: None Endocrine/Autoimmune: None GI: None : None HEENT: None Psych: Anxiety, Obsessive compulsive disorder Musculoskeletal: None Derm: None - Past Surgical History Past Surgical History: No - Present Medications Home Medications: Ambulatory Orders Medication Instructions Recorded Confirmed OLANZapine [Zyprexa] 10 mg PO DAILY #30 tablet 01/24/21 01/29/21 - Allergies Allergies/Adverse Reactions: Allergies Allergy/AdvReac Type Severity Reaction Status Date / Time No Known Drug Allergies Allergy Verified 02/06/21 13:55 - Social History Does the pt smoke?: No Smoking Status: Never smoker Does the pt drink ETOH?: No Does the pt have substance abuse?: No - Immunizations Immunizations are current?: No Immunizations: Other immun not current - POLST Patient has POLST: No PD ED PE NORMAL - Vitals Vital signs reviewed: Yes - General General: Alert and oriented X 3, No acute distress, Well developed/nourished - Neck Neck: Supple, no meningeal sign, No adenopathy - Cardiac Cardiac: RRR, No murmur - Respiratory Respiratory: Clear bilaterally, Other (right local chestwall tenderness approx rib 5 in anterior to mid axillary line. I feel just rib and muscle in the area. No noted skin sores. Locally tender without palpable lumph node and bedside U/S does not show abnormal appearance subcut. Axilla feels normal as well. ) - Abdomen Abdomen: Soft, Non tender - Derm Derm: Normal color, Warm and dry, No rash Results - Vitals Vitals: Vital Signs - 24 hr 02/06/21 02/06/21 13:50 15:16 Temperature 36.5 C 36.5 C Heart Rate 62 101 H Respiratory 15 16 Rate Blood Pressure 128/71 135/78 H O2 Saturation 97 97 Oxygen O2 Source Room air PD MEDICAL DECISION MAKING - ED course Complexity details: considered differential (local chestwall tenderness without obvious sore/rash/node. Bedside U/S appeared normal in subcut area as well. I referenced [facility] about his new meds and the Fluoxetine could cause dry mouth and abnormal sensations. ), d/w patient Departure - Departure Disposition: 01 Home, Self Care Clinical Impression: Chest wall tenderness, Abnormal taste in mouth Condition: Stable Record reviewed to determine appropriate education?: Yes Comments: I do not see anything abnormal on the chest wall in the area of the you are having some tenderness. Presume some inflammation of the muscle or the c artilage around the rib. You could use some Tylenol or ibuprofen if needed. I did look up your new medication and it does list dryness in the mouth and abnormal taste and sensations as possible side effects. I would expect that to taper down and be improved after you have been on the medicine for 2 to 3 weeks. Follow-up with your primary care as needed. Discharge Date/Time: 02/06/21 15:18
[2021-02-06 15:18] VITALS: BP 135/78
== END 2021-02-06 15:18 | disposition home or self-care (01) ==
LOC: ED 12:23
DX: R43.8 Other disturbances of smell and taste (principal); R07.89 Other chest pain
CPT/HCPCS: 99281; 99283

== ENCOUNTER 2021-02-09 08:06 | Emergency (ER) | payer MEDICAID ==
[2021-02-09 08:24] VITALS: BP 125/62
--- NOTE | 2021-02-09 09:52 | ED Physician Documentation ---
PD HPI HEENT - Stated complaint Stated Complaint: R EAR PAIN - Chief complaint Chief Complaint: Heent - History obtained from History obtained from: Patient - History of Present Illness Timing - onset: How many months ago (6) Timing - duration: Months (6) Timing - details: Gradual onset, Still present, Waxing and waning Location: Right ear Improves: Medication (maybe helped by decadron temporarily) Worsens: Swalllowing, Noise Associated symptoms: No: Fever, Congestion, Rhinorrhea, Trismus, Unable to swallow, Swollen nodes, Headache, Cough Similar symptoms before: Diagnosis (eustsation tube dysfunction) Recently seen: Emergency Dept - Additional information Additional information: 25-year-old male with a peculiar type of obsessive-compulsive disorder has developed some feeling of fullness and a whooshing sound in his right ear that is improved by plugging his nose and Valsalva him to get his eustachian tubes open. He states that he believes this all started at a particular time when he was having a lot of trouble with a lot of yelling secondary to his obsessive- compulsive disorder he is now developed some pain in the right side of his face is his axilla right side of his abdomen. He has these pains intermittently and he has been into the emergency department for them. He did get some dexamethasone with complaints of right-sided neck pain several weeks ago and he felt this might of helped with these symptoms in his ears temporarily. He was again recently seen here for pain in his right axilla. Review of Systems Constitutional: denies: Fever Eyes: denies: Decreased vision Ears: reports: Ear pain, Tinnitus/ringing. denies: Drainage/discharge Nose: denies: Rhinorrhea / runny nose, Congestion Throat: denies: Sore throat Cardiac: denies: Chest pain / pressure, Palpitations Respiratory: denies: Dyspnea, Cough GI: denies: Vomiting PD PAST MEDICAL HISTORY - Past Medical History Cardiovascular: None Respiratory: None Neuro: None Endocrine/Autoimmune: None GI: None : None HEENT: None Psych: Anxiety, Obsessive compulsive disorder Musculoskeletal: None Derm: None - Past Surgical History Past Surgical History: No - Present Medications Home Medications: Ambulatory Orders Medication Instructions Recorded Confirmed OLANZapine [Zyprexa] 10 mg PO DAILY #30 tablet 01/24/21 01/29/21 - Allergies Allergies/Adverse Reactions: Allergies Allergy/AdvReac Type Severity Reaction Status Date / Time No Known Drug Allergies Allergy Verified 02/09/21 08:24 - Social History Does the pt smoke?: No Smoking Status: Never smoker Does the pt drink ETOH?: No Does the pt have substance abuse?: No - Immunizations Immunizations are current?: No Immunizations: Other immun not current - POLST Patient has POLST: No PD ED PE NORMAL - Vitals Vital signs reviewed: Yes (Normal) - General General: Alert and oriented X 3, No acute distress, Well developed/nourished - HEENT HEENT: Atraumatic, PERRL, EOMI, Ears normal, Moist mucous membranes, Pharynx benign, Dentition benign - Neck Neck: Supple, no meningeal sign, No bony TTP - Respiratory Respiratory: No respiratory distress - Derm Derm: Normal color, Warm and dry, No rash - Extremities Extremities: No deformity, No edema - Neuro Neuro: Alert and oriented X 3, peer support specialist 2-12 intact, No motor deficit, No sensory deficit, Normal speech Eye Opening: Spontaneous Motor: Obeys Commands Verbal: Oriented GCS Score: 15 - Psych Psych: Normal mood, Normal affect Results - Vitals Vitals: Vital Signs - 24 hr 02/09/21 08:18 Temperature 36.3 C L Heart Rate 97 Respiratory 16 Rate Blood Pressure 125/62 O2 Saturation 98 Oxygen O2 Source Room air PD MEDICAL DECISION MAKING - ED course Complexity details: considered differential, d/w patient ED course: 25-year-old male with fullness and tenderness to the right ear has a normal- appearing ear examination normal pharynx and likely has eustachian tube dysfunction by history. I recommended the patient that he use some Nasacort and he does have follow-up with ENT on the of this month. Departure - Departure Disposition: 01 Home, Self Care Clinical Impression: Eustachian tube dysfunction Qualifiers: Laterality: right Qualified Code(s): H69.81 - Other specified disorders of Eustachian tube, right ear Condition: Stable Instructions: Ear Barotrauma, ED Obstruction Eustachian Tube Ch Follow-Up: [facility] [Provider Group] Comments: Edward, today it looks like you are having symptoms in your ear related to a dysfunction of the eustachian tube. There is a medication that you can use to help with this which is Nasacort. This is available [id number]. 2 sprays twice per day until symptoms are controlled and then once per day. Follow-up with the ear nose and throat doctor as planned.
== END 2021-02-09 10:02 | disposition home or self-care (01) ==
LOC: ED 08:06
DX: H69.81 Other specified disorders of Eustachian tube, right ear (principal)
CPT/HCPCS: 99281; 99282

== ENCOUNTER 2021-02-13 16:11 | Outpatient (CLI) | payer MEDICAID ==
[2021-02-13 18:16] LABS: BASOPHILS % (AUTO) 0.5 %; EOSINOPHILS % (AUTO) 0.7 %; HCT - HEMATOCRIT 43.3 % (42.0-52.0); HGB - HEMOGLOBIN 14.4 g/dL (14.0-18.0); LYMPHOCYTES % (AUTO) 34.7 %; MEAN CORPUSCULAR HEMOGLOBIN 29.4 pg (27.0-31.0); MEAN CORPUSCULAR HGB CONC 33.3 g/dL (32.0-36.0); MEAN CORPUSCULAR VOLUME 88.4 fL (80.0-94.0); MEAN PLATELET VOLUME 10.7 fL (7.4-11.4); MONOCYTES # (AUTO) 0.5 10^3/uL (0.0-1.0); MONOCYTES % (AUTO) 8.8 %; NEUTROPHILS # (AUTO) 3.2 10^3/uL (1.5-6.6); NEUTROPHILS % (AUTO) 55.1 %; PLT - PLATELET COUNT 302 10^3/uL (130-450); RED CELL DISTRIBUTION WIDTH 13.2 % (12.0-15.0); WHITE BLOOD COUNT 5.8 x10^3/uL (4.8-10.8)
[2021-02-13 18:27] LABS: ALBUMIN 4.5 g/dL (3.2-5.5); ALBUMIN/GLOBULIN RATIO 1.4 (1.0-2.2); BILIRUBIN,TOTAL 1.1 mg/dL (0.2-1.0); CALCIUM 9.8 mg/dL (8.5-10.3); POTASSIUM 3.8 mmol/L (3.5-5.0); TOTAL PROTEIN 7.8 g/dL (6.7-8.2)
[2021-02-13 19:33] LABS: BILIRUBIN,URINE NEGATIVE (NEGATIVE); GLUCOSE, URINE (UA) NEGATIVE (NEGATIVE); KETONES,URINE (UA) NEGATIVE (NEGATIVE); LEUKOCYTE ESTERASE, URINE NEGATIVE (NEGATIVE); NITRITE,URINE NEGATIVE (NEGATIVE); OCCULT BLOOD,URINE NEGATIVE (NEGATIVE); PH,URINE 6.5 PH (5.0-7.5); PROTEIN,URINE NEGATIVE (NEGATIVE); UROBILINOGEN,URINE 0.2 (NORMAL) E.U./dL (NORMAL)
[2021-02-13 19:37] LABS: CLARITY,URINE CLEAR (CLEAR)
[2021-02-13 21:22] LABS: BACTERIA,URINE None Seen /HPF (None Seen); RBC,URINE 0-5 /HPF (0-5); SQUAMOUS EPITHELIAL CELL,UR NONE SEEN (<= Few); WBC,URINE 0-3 /HPF (0-3)
== END 2021-02-13 23:59 | disposition home or self-care (01) ==
LOC: LAB.N 16:11
PROVIDERS: ATTEND Family Medicine
DX: R10.9 Unspecified abdominal pain (principal)
CPT/HCPCS: 36415; 80053; 81001; 82150; 83690; 85025; 87086

== ENCOUNTER 2021-02-14 22:18 | Emergency (ER) | payer MEDICAID ==
[2021-02-14 22:29] VITALS: BP 125/71
[2021-02-15] MEDS ORDERED: OLANZapine ODT 5 MG TABLET TL ONE (00:01)
--- NOTE | 2021-02-15 00:04 | ED Physician Documentation ---
History of Present Illness - Stated complaint Stated Complaint: RT EAR PX - Chief complaint Chief Complaint: Heent - History obtained from History obtained from: Patient - History of Present Illness Timing: Other (3 months) - Additonal information Additional information: 25-year-old male with a history of schizophrenia and obsessive-compulsive disorder has developed some issue with his right ear. He has had otitis 3 months ago and he has had persistent tinnitus since then and this began to bother him more and more. He becomes obsessed with the tenderness and he becomes obsessed with a sensation of [id number] on the right side of his body. He feels these are all connected together. He has not been compliant with his olanzapine. He states that the 10 mg dose he felt caused other side effects and symptoms that made things worse. He was on a 10 mg dose. I have evaluated the patient twice for this and on the second go around I recommended he use some Nasacort which he did not do. He did follow-up with his primary who prescribed Ciprodex and he felt that this helped for maybe 1/2-hour. He then became bothered by symptoms including symptoms of pain in the right side of his chest and arm and [id number]. The patient had previously been employed in 2 jobs was successful and then apparently had a psychotic break. Since that time he has been noncompliant with his medications and he has been having a rough go of it. He does become obsessed with particular issues and he appears obsessed with this now. I have reexamined the patient I do not find abnormalities. I have administered 2-1/2 mg of Zyprexa to the patient tonight he has thankful for this and willing to attempt a lower dose. He does have follow-up with ENT. On the of this month Review of Systems Constitutional: denies: Fever, Chills, Myalgias, Fatigue Eyes: denies: Decreased vision Ears: reports: Tinnitus/ringing. denies: Ear pain, Drainage/discharge Nose: denies: Rhinorrhea / runny nose, Congestion Throat: denies: Sore throat Cardiac: reports: Chest pain / pressure. denies: Palpitations Respiratory: denies: Dyspnea, Cough, Wheezing GI: denies: Abdominal Pain, Nausea, Vomiting : denies: Dysuria, Frequency Skin: denies: Rash Musculoskeletal: reports: Neck pain. denies: Back pain, Extremity pain Neurologic: reports: Other (pins and needles to the right arm periodically). denies: Generalized weakness, Focal weakness, Numbness, Difficulty speaking, Headache, Head injury, LOC PD PAST MEDICAL HISTORY - Past Medical History Past Medical History: Yes Cardiovascular: None Respiratory: None Neuro: None Endocrine/Autoimmune: None GI: None : None HEENT: None Psych: Anxiety, Obsessive compulsive disorder Musculoskeletal: None Derm: None - Past Surgical History Past Surgical History: No - Present Medications Home Medications: Ambulatory Orders Medication Instructions Recorded Confirmed OLANZapine [Zyprexa] 10 mg PO DAILY #30 tablet 01/24/21 01/29/21 OLANZapine [Zyprexa] 2.5 mg PO DAILY PM #20 tablet 02/15/21 - Allergies Allergies/Adverse Reactions: Allergies Allergy/AdvReac Type Severity Reaction Status Date / Time No Known Drug Allergies Allergy Verified 02/14/21 22:30 - Social History Does the pt smoke?: No Smoking Status: Never smoker Does the pt drink ETOH?: No Does the pt have substance abuse?: No - Immunizations Immunizations are current?: No Immunizations: Other immun not current - POLST Patient has POLST: No PD ED PE NORMAL - Vitals Vital signs reviewed: Yes (normal ) - General General: Alert and oriented X 3, No acute distress, Well developed/nourished, Other (pleasant and cooperative) - HEENT HEENT: Atraumatic, PERRL, EOMI, Pharynx benign, Dentition benign, Other (minimal inflammation along the umbo bilat. No distortion no inflamation in the canal. ) - Neck Neck: Supple, no meningeal sign, No bony TTP, No adenopathy - Cardiac Cardiac: RRR, No murmur - Respiratory Respiratory: No respiratory distress, Clear bilaterally - Abdomen Abdomen: Soft, Non tender - Back Back: No CVA TTP, No spinal TTP - Derm Derm: Normal color, Warm and dry, No rash - Extremities Extremities: No deformity, No edema - Neuro Neuro: Alert and oriented X 3, precision jig grinder 2-12 intact, No motor deficit, No sensory deficit, Normal speech Eye Opening: Spontaneous Motor: Obeys Commands Verbal: Oriented GCS Score: 15 - Psych Psych: Normal mood, Normal affect Results - Vitals Vitals: Vital Signs - 24 hr 02/14/21 22:26 Temperature 36.0 C L Heart Rate 51 L Respiratory 16 Rate Blood Pressure 125/71 O2 Saturation 100 Oxygen O2 Source Room air PD MEDICAL DECISION MAKING - ED course Complexity details: considered differential, d/w patient ED course: 25-year-old male returns to the emergency department again with complaints of tinnitus in the right ear and complaints of a sensation of lymph node swelling in the right side of his neck for a strain of the muscle in his neck or his side. Vague generalized symptoms to the right side. He does have a history of schizophrenia and noncompliance with his medication. I discussed with the patient his noncompliance and he indicated that he felt that the medication was too much. I have reduced his dose to 20 half milligrams and asked him to be compliant with this he of course readily agrees to this and we will see what happens. Departure - Departure Disposition: 01 Home, Self Care Clinical Impression: Tinnitus Qualifiers: Laterality: right Qualified Code(s): H93.11 - Tinnitus, right ear Schizophrenia Qualifiers: Schizophrenia type: unspecified Qualified Code(s): F20.9 - Schizophrenia, unspecified Condition: Stable Instructions: Tinnitus, ED Schizophrenia General Follow-Up: TAMMY BATEMAN MD [Provider Admit Priv/Credential] - Prescriptions: OLANZapine [Zyprexa] 2.5 mg PO DAILY PM #20 tablet Comments: Edward, today it appears you are very bothered by the tinnitus in your ear. This should be improved with the use of the Zyprexa. We are starting you on a lower dose. You may find this is helpful and you may need to increase the dose. The medication has been e-scribed to [facility] in [place]
== END 2021-02-15 00:32 | disposition home or self-care (01) ==
LOC: ED 22:18
DX: H93.11 Tinnitus, right ear (principal); F20.9 Schizophrenia, unspecified; Z91.14 Patient's other noncompliance with medication regimen
CPT/HCPCS: 99282; 99283; A9270

== ENCOUNTER 2021-03-16 10:04 | Emergency (ER) | payer MEDICAID ==
--- NOTE | 2021-03-16 11:12 | ED Physician Documentation ---
PD HPI MHE - Stated complaint Stated Complaint: RT EAR NOISE - Chief complaint Chief Complaint: MHE - History obtained from History obtained from: Patient - History of Present Illness Primary symptom: Psychosis (feeling of hearing voices in right ear, versus tinnitus.), Anxiety, Off meds (previously paroxetine and Olanzepine but states he stopped the paroxetine as he was concerned it was causing tinnitus. Symptoms persisted and are worse now. He states he felt foggy even during the day with the Zyprexa, so he stopped it few weeks ago.), Other (abnormal sounds/hearing right ear. he is concerned that there is "an implant" in head, connected to the abdomen, that is causing his symptoms.). No: Suicidal ideation, Homicidal ideation, Depression Timing - onset: How many months ago (has had ringing or other muffled sounds right ear intermittently for few months, with more consistency the past 1-2 weeks. states it is buzzing to voice-like sound just right ear. SOme times it sounds like words/sentences. denies any command voices. Not currently taking any meds.) Contributing factors: No: Substance abuse - ETOH, Substance abuse - drugs Similar symptoms before: Diagnosis (apparently bipolar disorder with prior Rx and counseling.) Recently seen: Clinic (has referral to ENT for couple weeks from now.) Review of Systems Constitutional: denies: Fever, Chills Nose: denies: Rhinorrhea / runny nose, Congestion Throat: denies: Sore throat Cardiac: denies: Chest pain / pressure, Palpitations Respiratory: reports: Dyspnea. denies: Cough, Wheezing GI: reports: Abdominal Pain (RUQ abd pain intermittently after eating for past couple of weeks.) Skin: denies: Rash, Lesions Musculoskeletal: denies: Neck pain, Back pain Neurologic: denies: Focal weakness, Numbness, Near syncope, Confused, Altered mental status, Headache, Head injury Psychiatric: reports: Hallucinations (hearing sounds/voices in right ear only, over the past couple of months.), Anxiety, Insomnia. denies: Suicidal, Homicidal PD PAST MEDICAL HISTORY - Past Medical History Cardiovascular: None Respiratory: None Neuro: None Endocrine/Autoimmune: None GI: None : None HEENT: None Psych: Anxiety, Bipolar disorder, Obsessive compulsive disorder Musculoskeletal: None Derm: None - Past Surgical History Past Surgical History: No - Present Medications Home Medications: Ambulatory Orders Medication Instructions Recorded Confirmed OLANZapine [Zyprexa] 10 mg PO DAILY #30 tablet 01/24/21 01/29/21 OLANZapine [Zyprexa] 2.5 mg PO DAILY PM #20 tablet 02/15/21 LORazepam [Ativan] 1 mg PO BID PRN #12 tablet 03/16/21 QUEtiapine [SEROquel] 25 mg PO QPM 20 Days #20 tablet 03/16/21 Sertraline [Zoloft] 50 mg PO DAILY 30 Days #30 tablet 03/16/21 - Allergies Allergies/Adverse Reactions: Allergies Allergy/AdvReac Type Severity Reaction Status Date / Time No Known Drug Allergies Allergy Verified 03/16/21 10:20 - Social History Does the pt smoke?: No Smoking Status: Never smoker Does the pt drink ETOH?: No Does the pt have substance abuse?: No - Immunizations Immunizations are current?: No Immunizations: Other immun not current - POLST Patient has POLST: No PD ED PE NORMAL - Vitals Vital signs reviewed: Yes - General General: Alert and oriented X 3, Well developed/nourished - HEENT HEENT: Atraumatic, PERRL, EOMI, Ears normal (TM appears normal. No tenderness in mastoid area. No skin rash. No nystagmus. ), Pharynx benign - Neck Neck: Supple, no meningeal sign, No adenopathy - Cardiac Cardiac: RRR, No murmur - Respiratory Respiratory: Clear bilaterally - Abdomen Abdomen: Soft, Non tender - Back Back: No CVA TTP - Derm Derm: Normal color, Warm and dry, No rash - Extremities Extremities: No edema, No calf tenderness / cord - Neuro Neuro: Alert and oriented X 3, No motor deficit, Normal speech Eye Opening: Spontaneous Motor: Obeys Commands Verbal: Oriented GCS Score: 15 - Psych Psych: No: Normal affect (pressured speech and reference to concern for "implants" causing the tinnitus/voices symptoms. He is able to be aware that that is not rational thought though. ) Results - Vitals Vitals: Vital Signs - 24 hr 03/16/21 03/16/21 10:14 14:58 Temperature 36.2 C L Heart Rate 87 73 Respiratory 16 16 Rate Blood Pressure 134/70 H 115/65 O2 Saturation 100 100 Oxygen O2 Source Room air - Labs Labs: Laboratory Tests 03/16/21 03/16/21 03/16/21 11:50 11:50 11:50 WBC 6.9 RBC 5.19 Hgb 15.2 Hct 45.1 MCV 86.9 MCH 29.3 MCHC 33.7 RDW 13.6 Plt Count 263 MPV 10.0 Neut # (Auto) 4.9 Lymph # (Auto) 1.4 L [place] # (Auto) 0.6 Eos # (Auto) 0.0 Baso # (Auto) 0.0 Absolute Nucleated RBC 0.00 Nucleated RBC % 0.0 Sodium 136 Potassium 4.1 Chloride 102 Carbon Dioxide 25 Anion Gap 9.0 BUN 15 Creatinine 1.1 Estimated GFR (MDRD) 97 Glucose 103 H Calcium 9.6 Total Bilirubin 1.5 H AST 29 ALT 33 Alkaline Phosphatase 40 L Total Protein 8.1 Albumin 4.5 Globulin 3.6 Albumin/Globulin Ratio 1.3 Lipase 26 TSH 0.38 Urine Color Urine Clarity Urine pH Ur Specific [place] Urine Protein Urine Glucose (UA) Urine Ketones Urine Occult Blood Urine Nitrite Urine Bilirubin Urine Urobilinogen Ur Leukocyte Esterase Ur Microscopic Review Urine Culture Comments Salicylates < 6.0 Urine Opiates Screen Ur Oxycodone Screen Urine Methadone Screen Ur Propoxyphene Screen Acetaminophen < 10 L Ur Barbiturates Screen Ur Tricyclics Screen Ur Phencyclidine Scrn Ur Amphetamine Screen U Methamphetamines Scrn U Benzodiazepines Scrn Urine Cocaine Screen U Cannabinoids Screen Ethyl Alcohol < 5.0 03/16/21 12:03 WBC RBC Hgb Hct MCV MCH MCHC RDW Plt Count MPV Neut # (Auto) Lymph # (Auto) [place] # (Auto) Eos # (Auto) Baso # (Auto) Absolute Nucleated RBC Nucleated RBC % Sodium Potassium Chloride Carbon Dioxide Anion Gap BUN Creatinine Estimated GFR (MDRD) Glucose Calcium Total Bilirubin AST ALT Alkaline Phosphatase Total Protein Albumin Globulin Albumin/Globulin Ratio Lipase TSH Urine Color DARK YELLOW Urine Clarity CLEAR Urine pH 6.0 Ur Specific [place] >=1.030 H Urine Protein NEGATIVE Urine Glucose (UA) NEGATIVE Urine Ketones TRACE Urine Occult Blood NEGATIVE Urine Nitrite NEGATIVE Urine Bilirubin NEGATIVE Urine Urobilinogen 0.2 (NORMAL) Ur Leukocyte Esterase NEGATIVE Ur Microscopic Review NOT INDICATED Urine Culture Comments NOT INDICATED Salicylates Urine Opiates Screen NEGATIVE Ur Oxycodone Screen NEGATIVE Urine Methadone Screen NEGATIVE Ur Propoxyphene Screen NEGATIVE Acetaminophen Ur Barbiturates Screen NEGATIVE Ur Tricyclics Screen NEGATIVE Ur Phencyclidine Scrn NEGATIVE Ur Amphetamine Screen NEGATIVE U Methamphetamines Scrn NEGATIVE U Benzodiazepines Scrn NEGATIVE Urine Cocaine Screen NEGATIVE U Cannabinoids Screen NEGATIVE Ethyl Alcohol - Rads (name of study) head CT Radiology: Prelim report reviewed (no acute process), See rad report RUQ abd U/S Radiology: Prelim report reviewed (no acute process), See rad report PD MEDICAL DECISION MAKING - ED course Complexity details: reviewed old records, considered differential, d/w patient, d/w economics consultant (Social WOrk talked with patient and did not feel he needed detaining, and patient did not feel that hospitalization would be helpful, but rather outpt change meds and f/u scheduled counseling. ) Departure - Departure Disposition: 01 Home, Self Care Clinical Impression: Ringing in right ear Schizoaffective disorder Qualifiers: Schizoaffective disorder type: unspecified Qualified Code(s): F25.9 - Schizoaffective disorder, unspecified Condition: Stable Record reviewed to determine appropriate education?: Yes Prescriptions: LORazepam [Ativan] 1 mg PO BID PRN #12 tablet PRN Reason: Anxiety QUEtiapine [SEROquel] 25 mg PO QPM 20 Days #20 tablet Sertraline [Zoloft] 50 mg PO DAILY 30 Days #30 tablet Comments: Stay well-hydrated. Your head CT does not show any obvious structural abnormality. You may be having some tinnitus or nerve irritation to the right ear causing the sounds on that side. Follow-up with the ENT specialist later this month as planned. Your abdominal ultrasound does not show any problems associated with the liver pancreas gallbladder. Unclear the cause of the discomfort in that area. For your general symptoms, I would suggest the medications you had discussed with starting the Zoloft daily for the next month. Because the improvement will not start from this for least a couple of weeks, we can use other medications in the short-term to help with the symptoms. This can be quite appealing low- dose at night to help with sleep and general mood. To that add lorazepam twice daily if needed for anxiety or panic but be to be used as needed and not necessarily regularly. This would be intended short-term. Follow-up with your primary care. I transmitted your prescriptions to [facility] pharmacy. Discharge Date/Time: 03/16/21 14:59
[2021-03-16] MEDS ORDERED: QUEtiapine 25 MG TABLET PO STA (11:42)
[2021-03-16 12:01] LABS: BASOPHILS % (AUTO) 0.3 %; EOSINOPHILS % (AUTO) 0.3 %; HCT - HEMATOCRIT 45.1 % (42.0-52.0); HGB - HEMOGLOBIN 15.2 g/dL (14.0-18.0); LYMPHOCYTES # (AUTO) 1.4 10^3/uL (1.5-3.5); LYMPHOCYTES % (AUTO) 20.7 %; MEAN CORPUSCULAR HEMOGLOBIN 29.3 pg (27.0-31.0); MEAN CORPUSCULAR HGB CONC 33.7 g/dL (32.0-36.0); MEAN CORPUSCULAR VOLUME 86.9 fL (80.0-94.0); MONOCYTES # (AUTO) 0.6 10^3/uL (0.0-1.0); NEUTROPHILS # (AUTO) 4.9 10^3/uL (1.5-6.6); NEUTROPHILS % (AUTO) 70.6 %; PLT - PLATELET COUNT 263 10^3/uL (130-450); RED BLOOD COUNT 5.19 10^6/uL (4.70-6.10); RED CELL DISTRIBUTION WIDTH 13.6 % (12.0-15.0); WHITE BLOOD COUNT 6.9 x10^3/uL (4.8-10.8)
[2021-03-16 12:12] LABS: ACETAMINOPHEN < 10 ug/mL (10-30); ALBUMIN 4.5 g/dL (3.2-5.5); ALBUMIN/GLOBULIN RATIO 1.3 (1.0-2.2); ALKALINE PHOSPHATASE 40 IU/L (42-121); ALT ALANINE AMINOTRANSFERASE 33 IU/L (10-60); AST ASPARTATE AMINOTRANSFERASE 29 IU/L (10-42); BILIRUBIN,TOTAL 1.5 mg/dL (0.2-1.0); BUN - BLOOD UREA NITROGEN 15 mg/dL (6-20); CALCIUM 9.6 mg/dL (8.5-10.3); CARBON DIOXIDE - CO2 25 mmol/L (21-32); CHLORIDE 102 mmol/L (101-111); CREATININE 1.1 mg/dL (0.6-1.2); ETOH - ETHANOL < 5.0 mg/dL; GFR - MDRD 97 (>89); GLUCOSE 103 mg/dL (70-100); LIPASE 26 U/L (22-51); POTASSIUM 4.1 mmol/L (3.5-5.0); SALICYLATE < 6.0 mg/dL; SODIUM 136 mmol/L (135-145); TOTAL PROTEIN 8.1 g/dL (6.7-8.2)
[2021-03-16 12:14] LABS: MUDS CUTOFF CONCENTRATIONS CUTOFF CONC BELOW:
[2021-03-16 12:17] LABS: BILIRUBIN,URINE NEGATIVE (NEGATIVE); GLUCOSE, URINE (UA) NEGATIVE (NEGATIVE); KETONES,URINE (UA) TRACE mg/dL (NEGATIVE); LEUKOCYTE ESTERASE, URINE NEGATIVE (NEGATIVE); NITRITE,URINE NEGATIVE (NEGATIVE); OCCULT BLOOD,URINE NEGATIVE (NEGATIVE); PROTEIN,URINE NEGATIVE (NEGATIVE); UROBILINOGEN,URINE 0.2 (NORMAL) E.U./dL (NORMAL)
[2021-03-16 12:20] LABS: CLARITY,URINE CLEAR (CLEAR)
[2021-03-16 12:26] LABS: AMPHETAMINE SCREEN,URINE NEGATIVE (NEGATIVE); BARBITURATE SCREEN,UR NEGATIVE (NEGATIVE); BENZODIAZEPINES SCREEN, URINE NEGATIVE (NEGATIVE); COCAINE SCREEN URINE NEGATIVE (NEGATIVE); METHADONE SCREEN, URINE NEGATIVE (NEGATIVE); METHAMPHETAMINES SCREEN, URINE NEGATIVE (NEGATIVE); OPIATE SCREEN, URINE NEGATIVE (NEGATIVE); OXYCODONE SCREEN, URINE NEGATIVE (NEGATIVE); PROPOXYPHENE SCREEN, URINE NEGATIVE (NEGATIVE); THC CANNABINOID SCREEN, URINE NEGATIVE (NEGATIVE); TRICYCLIC ANTIDEPRESSANT,URINE NEGATIVE (NEGATIVE)
--- NOTE | 2021-03-16 12:46 | Ultrasound Report ---
PROCEDURE: Abdomen Limited INDICATIONS: RUQ abd pain TECHNIQUE: Real-time focused scanning was performed of the abdomen, with image documentation. COMPARISON: None available. FINDINGS: AORTA: The visualized abdominal aorta is normal. IVC: The visualized IVC is normal. LIVER: The liver is normal in size and contour. No significant abnormality. Mild increased echogeni city. The portal vein is patent. PANCREAS: The visualized portions of the pancreas are normal. Gallbladder and biliary tree: Within normal limits. No shadowing gallstones appreciated. RIGHT KIDNEY: Normal in appearance with no hydronephrosis. Measuring 9.9 cm in length. The renal co rtex thickness measures 1.6 cm. No ascites. IMPRESSION: 1.No acute right upper quadrant sonographic abnormality. Reviewed by: Dakotah Bee MD on 03/16/2021 12:44 PM PST Approved by: Dakotah Bee MD on 03/16/2021 12:44 PM PST Station ID: [id number]
--- NOTE | 2021-03-16 13:06 | CT Report ---
PROCEDURE: HEAD WO INDICATIONS: right headache and ear pressure; abn sounds TECHNIQUE: Noncontrast 4.5 mm thick angled axial sections acquired from the foramen magnum to the vertex. For r adiation dose reduction, the following was used: automated exposure control, adjustment of mA and/or kV according to patient size. COMPARISON: None. FINDINGS: BRAIN PARENCHYMA: Normal parenchymal density. No acute cortical based (large territory) infarction, i ntracranial hemorrhage, mass or mass effect, or abnormal fluid collection. The density in the larger dural venous sinuses is grossly normal. VENTRICLES: Normal in size, shape, and position. BONES/SINUSES: The skull base and calvarium demonstrate no acute abnormality. The paranasal sinuses a nd mastoid air cells are well aerated. A right high riding jugular bulb is seen. IMPRESSION: 1.No acute intracranial abnormality. Reviewed by: Dakotah Bee MD on 03/16/2021 1:05 PM [facility] Approved by: Dakotah Bee MD on 03/16/2021 1:05 PM [facility] Station ID: [id number]
[2021-03-16 14:59] VITALS: BP 115/65
== END 2021-03-16 14:59 | disposition home or self-care (01) ==
LOC: ED 10:04
DX: H93.11 Tinnitus, right ear (principal); F25.9 Schizoaffective disorder, unspecified
CPT/HCPCS: 36415; 70450; 76705; 80053; 80306; 80307; 80320; 80329; 81003; 83690; 84443; 85025; 99284; A9270; 81001; 87086

== ENCOUNTER 2021-03-23 16:53 | Emergency (ER) | payer MEDICAID ==
[2021-03-23 17:17] VITALS: BP 139/71
--- NOTE | 2021-03-23 18:01 | ED Physician Documentation ---
History of Present Illness - Stated complaint Stated Complaint: MHE - Chief complaint Chief Complaint: MHE - Additonal information Additional information: 26-year-old male who has a history of anxiety and depression comes to the emergency department because he felt chemically out of balance. He was prescribed sertraline recently. He took it for 3 days but did wait it made him feel. He stopped taking it 3 days ago. This morning he began feeling anxious, he had a racing heart. He was doing a Google search and found that metabolic acidosis could be causing the symptoms thus he presents to the ER asking for a metabolic acidosis check. Patient denies thoughts of self-harm or harm to others. He appears well-groomed and has a safe place to stay. Review of Systems Constitutional: reports: Reviewed and negative Nose: reports: Reviewed and negative Throat: reports: Reviewed and negative Cardiac: reports: Reviewed and negative Respiratory: reports: Reviewed and negative GI: reports: Reviewed and negative : reports: Reviewed and negative Musculoskeletal: reports: Reviewed and negative Neurologic: reports: Reviewed and negative Psychiatric: reports: Anxiety. denies: Suicidal, Homicidal PD PAST MEDICAL HISTORY - Past Medical History Cardiovascular: None Respiratory: None Neuro: None Endocrine/Autoimmune: None GI: None : None HEENT: None Psych: Anxiety, Bipolar disorder, Obsessive compulsive disorder Musculoskeletal: None Derm: None - Past Surgical History Past Surgical History: No - Present Medications Home Medications: Ambulatory Orders Medication Instructions Recorded Confirmed OLANZapine [Zyprexa] 10 mg PO DAILY #30 tablet 01/24/21 01/29/21 OLANZapine [Zyprexa] 2.5 mg PO DAILY PM #20 tablet 02/15/21 LORazepam [Ativan] 1 mg PO BID PRN #12 tablet 03/16/21 QUEtiapine [SEROquel] 25 mg PO QPM 20 Days #20 tablet 03/16/21 Sertraline [Zoloft] 50 mg PO DAILY 30 Days #30 tablet 03/16/21 - Allergies Allergies/Adverse Reactions: Allergies Allergy/AdvReac Type Severity Reaction Status Date / Time No Known Drug Allergies Allergy Verified 03/23/21 17:17 - Social History Does the pt smoke?: No Smoking Status: Never smoker Does the pt drink ETOH?: No Does the pt have substance abuse?: No - Immunizations Immunizations are current?: No Immunizations: Other immun not current - POLST Patient has POLST: No PD ED PE NORMAL - General General: Alert and oriented X 3, No acute distress - HEENT HEENT: PERRL - Cardiac Cardiac: RRR, No murmur - Respiratory Respiratory: Clear bilaterally - Abdomen Abdomen: Normal bowel sounds, Soft, Non tender, Non distended - Back Back: No CVA TTP, No spinal TTP - Derm Derm: Normal color, Warm and dry, No rash - Extremities Extremities: No deformity, No tenderness to palpate - Neuro Neuro: Alert and oriented X 3, aviculturist 2-12 intact Eye Opening: Spontaneous Motor: Obeys Commands Verbal: Oriented GCS Score: 15 - Psych Psych: Normal mood, Normal affect Results - Vitals Vitals: Vital Signs - 24 hr 03/23/21 17:14 Temperature 36.5 C Heart Rate 48 L Respiratory 14 Rate Blood Pressure 139/71 H O2 Saturation 100 Oxygen O2 Source Room air PD MEDICAL DECISION MAKING - ED course Complexity details: d/w patient ED course: Well-appearing 26-year-old male has a history of anxiety comes to the emergency department because he felt chemically out of balance after taking sertraline. He did have a panic attack or anxiety attack earlier today and it is fully resolved. He was curious if he could have metabolic acidosis. Patient easily contracts for safety. I did offer the gentleman a BMP but he declined it is he thinks the blood draws will give him anxiety. We discussed it is very unlikely that he has Clinically significant chemical imbalance following 3 days of sertraline. He is encouraged to follow-up with his primary care doctor as well as a therapist for longer-term management of his anxiety. Emergent return precautions discussed. Departure - Departure Disposition: 01 Home, Self Care Clinical Impression: Anxiety Instructions: ED Anxiety Reaction Comments: Edward I am glad that you are feeling better. Anxiety can make us feel very off and out of balance. As we discussed at the bedside it is very unlikely that the anxiety you felt this morning was due to or caused by metabolic acidosis. In general your Ativan should be used as a rescue medication only for when you a re having a severe panic attack. It is important that you discuss this ED visit with your primary care doctor. You may benefit from talk therapy to discuss the cause of your anxiety and your primary care doctor may want to consider a different anxiety medication. If you find yourself having anxiety/panic/worry I encourage you to take a few deep breaths close your eyes and recognize that you are safe and doing well. Then choose to take 1 action that will help you feel better whether it is eating, sleeping, removing yourself from a fearful situation or simply talking to a friend. If you ever feel unsafe, have thoughts of self-harm please return immediately to the ER.
== END 2021-03-23 18:08 | disposition home or self-care (01) ==
LOC: ED 16:53
DX: F41.9 Anxiety disorder, unspecified (principal)
CPT/HCPCS: 99281; 99282

== ENCOUNTER 2021-03-24 17:41 | Emergency (ER) | payer MEDICAID ==
[2021-03-24 17:56] VITALS: BP 156/69
[2021-03-24] MEDS ORDERED: QUEtiapine 25 MG TABLET PO STA (18:10)
--- NOTE | 2021-03-24 18:13 | ED Physician Documentation ---
History of Present Illness - Stated complaint Stated Complaint: CHEST DISCOMFORT,HEARING SOMETHING IN EAR - Chief complaint Chief Complaint: MHE - Additonal information Additional information: 26-year-old male presents emergency department for evaluation of a voice he hears in his head. He has often heard it in the right ear but recently it has been in his left ear. He is not sure what it says but it is not a command and he does not feel that he wants to hurt himself or anybody else. 9 patient states that he was previously taking olanzapine which did help control the voices but he stopped taking it in favor of sertraline. He did not like the side effects of sertraline so stopped taking it 4 days ago but he is recently been prescribed Seroquel. He was thinking of taking the Seroquel today but when he heard the voice in the left ear he came to the emergency department. He was seen yesterday by myself for concerns of anxiety and declined labs. He is also endorsing some vague left-sided chest pain. Gentleman is a poor historian, very tangential though quite pleasant and polite Review of Systems Unable to obtain: Other (poor historian, psych) Cardiac: reports: Chest pain / pressure Psychiatric: reports: Hallucinations. denies: Depressed, Suicidal, Homicidal PD PAST MEDICAL HISTORY - Past Medical History Cardiovascular: None Respiratory: None Neuro: None Endocrine/Autoimmune: None GI: None : None HEENT: None Psych: Anxiety, Bipolar disorder, Obsessive compulsive disorder Musculoskeletal: None Derm: None - Past Surgical History Past Surgical History: No - Present Medications Home Medications: Ambulatory Orders Medication Instructions Recorded Confirmed OLANZapine [Zyprexa] 10 mg PO DAILY #30 tablet 01/24/21 01/29/21 OLANZapine [Zyprexa] 2.5 mg PO DAILY PM #20 tablet 02/15/21 LORazepam [Ativan] 1 mg PO BID PRN #12 tablet 03/16/21 QUEtiapine [SEROquel] 25 mg PO QPM 20 Days #20 tablet 03/16/21 Sertraline [Zoloft] 50 mg PO DAILY 30 Days #30 tablet 03/16/21 - Allergies Allergies/Adverse Reactions: Allergies Allergy/AdvReac Type Severity Reaction Status Date / Time No Known Drug Allergies Allergy Verified 03/24/21 17:51 - Social History Does the pt smoke?: No Smoking Status: Never smoker Does the pt drink ETOH?: No Does the pt have substance abuse?: No - Immunizations Immunizations are current?: No Immunizations: Other immun not current - POLST Patient has POLST: No PD ED PE EXPANDED - General General: Alert, No acute distress, Well developed/nourished - Neck Neck: Supple w/out meningeal sx. No: Adenopathy - Cardiac Cardiac: Regular Rate, Radial strong equal, Cap refill < 2 sec. No: Murmur Present, Prolonged cap refill - Respiratory Respiratory: Clear to ausultation malorie. No: Distress, Labored - Abdomen Abdomen: Normal Bowel sounds. No: Tender to palpation - Derm Derm: Normal color, Warm and dry. No: Rash - Neuro Neuro: Alert and Oriented X 3, CNII-XII intact - GCS Eye Opening: Spontaneous Motor: Obeys Commands Verbal: Oriented Total: 15 - Psych Psych: Anxious, Auditory hallucinations, Other (Very tangential.) Results - Vitals Vitals: Vital Signs - 24 hr 03/24/21 17:51 Temperature 36.6 C Heart Rate 55 L Respiratory 18 Rate Blood Pressure 156/69 H O2 Saturation 98 Oxygen O2 Source Room air - EKG (time done) 1758 Rate: Rate (enter#) (51) Rhythm: NSR [place]: Normal Intervals: Prolonged QT QRS: Normal, LVH Ischemia: ST elevation c/w repol, Other Compare to prior EKG: Unchanged from prior EKG - Labs Labs: Laboratory Tests 03/24/21 18:10 Urine Color YELLOW Urine Clarity CLEAR Urine pH 7.0 Ur Specific [place] <=1.005 Urine Protein NEGATIVE Urine Glucose (UA) NEGATIVE Urine Ketones NEGATIVE Urine Occult Blood NEGATIVE Urine Nitrite NEGATIVE Urine Bilirubin NEGATIVE Urine Urobilinogen 0.2 (NORMAL) Ur Leukocyte Esterase NEGATIVE Ur Microscopic Review NOT INDICATED Urine Culture Comments NOT INDICATED Urine Opiates Screen NEGATIVE Ur Oxycodone Screen NEGATIVE Urine Methadone Screen NEGATIVE Ur Propoxyphene Screen NEGATIVE Ur Barbiturates Screen NEGATIVE Ur Tricyclics Screen NEGATIVE Ur Phencyclidine Scrn NEGATIVE Ur Amphetamine Screen NEGATIVE U Methamphetamines Scrn NEGATIVE U Benzodiazepines Scrn NEGATIVE Urine Cocaine Screen NEGATIVE U Cannabinoids Screen NEGATIVE PD MEDICAL DECISION MAKING - ED course Complexity details: reviewed results, re-evaluated patient, d/w patient ED course: 26-year-old male Presents to the emergency department for evaluation of auditory hallucinations. He has had these for many years. He was previously taking olanzapine which she reported controlled the symptoms but for reasons that are unclear stopped taking the olanzapine and began taking sertraline. He started taking sertraline last week and did not like the side effects so stopped 4 days ago. Since then he is having more persistent auditory hallucinations. These are not command hallucinations per se and he is not quite sure what they say. Typically only hears them in the right ear and he is now hearing them in the left ear as well. Patient is also reporting a vague chest pain that radiates to his left arm. Screening EKG does show some mild ST elevation this is likely early repol. Patient is quite adamant he does not want to have labs obtained today. Aware that pericarditis or acs can not be fully ruled out. He was requesting a test dose of the Seroquel to see if he would feel better after taking that. He is quite clear that he has no wish to harm himself or anybody else and does not desire psychiatric hospitalization. 1845: Patient was feeling better after the Seroquel. He is reportedly sleeping in his car and I have advised him to remain in his vehicle tonight before driving again. Patient is to schedule follow-up with his primary care doctor to have his medications renewed or refilled in the long-term. Otherwise emergent return precautions discussed. Departure - Departure Disposition: 01 Home, Self Care Clinical Impression: Auditory hallucinations Follow-Up: Tracy Gonzalez ARNP [Provider Admit Priv/Credential] - Comments: Edward you are seen today in the emergency department for auditory hallucinations. We did give you a single dose of Seroquel here in the emergency department. It is making you a little sleepy which is very common this is why is advised to take at nighttime only. It is important that you take the medication at the same time every day. If you ever feel that the medication is not controlling your voices, or you feel you are that you will harm yourself or somebody else you are to return immediately to the emergency department. Please schedule an appointment with your primary doctor to have your medications refilled in the long-term.
[2021-03-24 18:17] LABS: MUDS CUTOFF CONCENTRATIONS CUTOFF CONC BELOW:
[2021-03-24 18:20] LABS: BILIRUBIN,URINE NEGATIVE (NEGATIVE); GLUCOSE, URINE (UA) NEGATIVE (NEGATIVE); KETONES,URINE (UA) NEGATIVE (NEGATIVE); LEUKOCYTE ESTERASE, URINE NEGATIVE (NEGATIVE); NITRITE,URINE NEGATIVE (NEGATIVE); OCCULT BLOOD,URINE NEGATIVE (NEGATIVE); PROTEIN,URINE NEGATIVE (NEGATIVE); UROBILINOGEN,URINE 0.2 (NORMAL) E.U./dL (NORMAL)
[2021-03-24 18:30] LABS: AMPHETAMINE SCREEN,URINE NEGATIVE (NEGATIVE); BARBITURATE SCREEN,UR NEGATIVE (NEGATIVE); BENZODIAZEPINES SCREEN, URINE NEGATIVE (NEGATIVE); CLARITY,URINE CLEAR (CLEAR); COCAINE SCREEN URINE NEGATIVE (NEGATIVE); METHADONE SCREEN, URINE NEGATIVE (NEGATIVE); METHAMPHETAMINES SCREEN, URINE NEGATIVE (NEGATIVE); OPIATE SCREEN, URINE NEGATIVE (NEGATIVE); OXYCODONE SCREEN, URINE NEGATIVE (NEGATIVE); PROPOXYPHENE SCREEN, URINE NEGATIVE (NEGATIVE); THC CANNABINOID SCREEN, URINE NEGATIVE (NEGATIVE); TRICYCLIC ANTIDEPRESSANT,URINE NEGATIVE (NEGATIVE)
== END 2021-03-24 18:53 | disposition home or self-care (01) ==
LOC: ED 17:41
DX: R44.0 Auditory hallucinations (principal)
CPT/HCPCS: 80306; 81003; 93005; 99283; 99284; A9270; 80053; 80307; 80320; 80329; 81001; 83690; 84443; 84484; 85025; 87086

== ENCOUNTER 2021-03-26 19:11 | Emergency (ER) | payer MEDICAID ==
--- NOTE | 2021-03-26 20:25 | ED Physician Documentation ---
History of Present Illness - Stated complaint Stated Complaint: RT EAR PX - Chief complaint Chief Complaint: MHE - History obtained from History obtained from: Patient - History of Present Illness Timing: Today Pain level max: 0 Pain level now: 0 - Additonal information Additional information: Patient is a 26-year-old male, history of schizophrenia versus schizoaffective disorder. Presents to the emergency department complaining of ringing in the right ear. He states he feels like sometimes there are voices in the right ear. They are not command hallucinations. He states that occasionally he feels the ringing down into his chest and down his leg. It resolves when he listens to music. Nothing makes it worse. He states he did not take his Seroquel today. Review of Systems Constitutional: denies: Fever, Chills Nose: denies: Rhinorrhea / runny nose, Congestion Throat: denies: Sore throat Cardiac: denies: Chest pain / pressure, Palpitations Respiratory: denies: Dyspnea, Cough PD PAST MEDICAL HISTORY - Past Medical History Past Medical History: Yes Cardiovascular: None Respiratory: None Neuro: None Endocrine/Autoimmune: None GI: None : None HEENT: None Psych: Anxiety, Bipolar disorder, Obsessive compulsive disorder Musculoskeletal: None Derm: None - Past Surgical History Past Surgical History: No - Present Medications Home Medications: Ambulatory Orders Medication Instructions Recorded Confirmed OLANZapine [Zyprexa] 10 mg PO DAILY #30 tablet 01/24/21 01/29/21 OLANZapine [Zyprexa] 2.5 mg PO DAILY PM #20 tablet 02/15/21 LORazepam [Ativan] 1 mg PO BID PRN #12 tablet 03/16/21 QUEtiapine [SEROquel] 25 mg PO QPM 20 Days #20 tablet 03/16/21 Sertraline [Zoloft] 50 mg PO DAILY 30 Days #30 tablet 03/16/21 - Allergies Allergies/Adverse Reactions: Allergies Allergy/AdvReac Type Severity Reaction Status Date / Time No Known Drug Allergies Allergy Verified 03/26/21 19:16 - Social History Does the pt smoke?: No Smoking Status: Never smoker Does the pt drink ETOH?: No Does the pt have substance abuse?: No - Immunizations Immunizations are current?: No Immunizations: Other immun not current - POLST Patient has POLST: No PD ED PE NORMAL - Vitals Vital signs reviewed: Yes - General General: Alert and oriented X 3, No acute distress, Well developed/nourished - HEENT HEENT: PERRL, Ears normal, Moist mucous membranes, Pharynx benign - Neck Neck: Supple, no meningeal sign, No JVD, No bruit - Cardiac Cardiac: RRR, No murmur, Strong equal pulses - Respiratory Respiratory: No respiratory distress, Clear bilaterally - Abdomen Abdomen: Soft, Non tender, Non distended - Derm Derm: Warm and dry - Extremities Extremities: No edema - Neuro Neuro: Alert and oriented X 3, apron cleaner 2-12 intact, No motor deficit, No sensory deficit, Normal speech - Psych Psych: Normal mood, Normal affect Results - Vitals Vitals: Vital Signs - 24 hr 03/26/21 03/26/21 19:16 20:30 Temperature 36.5 C Heart Rate 60 55 L Respiratory 16 16 Rate Blood Pressure 129/84 H 142/84 H O2 Saturation 99 99 Oxygen O2 Source Room air PD MEDICAL DECISION MAKING - ED course Complexity details: considered differential, d/w patient ED course: Normal examination here. Likely that this is psychosomatic from his schizophrenia. Recommend he continue his current medications at home. Recommend that he speak with his primary care provider regarding long acting antipsychotics such as once monthly Zyprexa. Patient counseled regarding signs and symptoms for which I believe and urgent re-evaluation would be necessary. Patient with good understanding of and agreement to plan and is comfortable going home at this time This document was made in part using voice recognition software. While efforts are made to proofread this document, sound alike and grammatical errors may occur. Departure - Departure Disposition: 01 Home, Self Care Clinical Impression: Tinnitus Qualifiers: Laterality: right Qualified Code(s): H93.11 - Tinnitus, right ear Condition: Good Instructions: Tinnitus Follow-Up: Tracy Gonzalez ARNP [Provider Admit Priv/Credential] - Within 1 week Comments: Please follow-up with your doctor for further care. Return if you worsen. Continue your current medications at home. I would recommend that you speak with your doctor about long-acting olanzapine, once monthly. This will help with your medication compliance and help you feel better. Discharge Date/Time: 03/26/21 20:31
[2021-03-26 20:30] VITALS: BP 142/84
== END 2021-03-26 20:31 | disposition home or self-care (01) ==
LOC: ED 19:11
DX: H93.11 Tinnitus, right ear (principal)
CPT/HCPCS: 99281; 99282

== ENCOUNTER 2021-04-03 22:15 | Emergency (ER) | payer MEDICAID ==
[2021-04-03 22:31] VITALS: BP 109/60
--- NOTE | 2021-04-04 00:03 | ED Physician Documentation ---
History of Present Illness - Stated complaint Stated Complaint: ANXIETY - Chief complaint Chief Complaint: MHE - History obtained from History obtained from: Patient - Additonal information Additional information: The patient comes to the emergency department chief complaint of anxiety, and would like to be back on his Zyprexa. He states that he stopped taking his psychiatric medications, including Seroquel, sertraline, and Zyprexa, but had a bad anxiety attack tonight in which he was yelling and screaming. He states he was able to talk to himself down from it and practice breathing exercises, but he believes it would be beneficial for him to be back on the Zyprexa. Right now, he does not want to try going back on the Seroquel or the sertraline, and states that although he was previously on Paxil and this did seem to help, he is not ready to go back on it right now. The patient denies other complaints at this time. No suicidal ideation. No current sense of panic. Patient has not r ecently been ill. He has been seen a number of times in emergency department recently for various complaints related to auditory hallucinations. No other complaints at this time. Review of Systems Ten Systems: 10 systems reviewed and negative Constitutional: reports: Reviewed and negative Eyes: reports: Reviewed and negative Ears: reports: Reviewed and negative Nose: reports: Reviewed and negative Throat: reports: Reviewed and negative Cardiac: reports: Reviewed and negative Respiratory: reports: Reviewed and negative GI: reports: Reviewed and negative : reports: Reviewed and negative Skin: reports: Reviewed and negative Musculoskeletal: reports: Reviewed and negative Neurologic: reports: Reviewed and negative Psychiatric: reports: Anxiety Endocrine: reports: Reviewed and negative Immunocompromised: reports: Reviewed and negative PD PAST MEDICAL HISTORY - Past Medical History Past Medical History: Yes Cardiovascular: None Respiratory: None Neuro: None Endocrine/Autoimmune: None GI: None : None HEENT: None Psych: Anxiety, Bipolar disorder, Obsessive compulsive disorder Musculoskeletal: None Derm: None - Past Surgical History Past Surgical History: No - Present Medications Home Medications: Ambulatory Orders Medication Instructions Recorded Confirmed OLANZapine [Zyprexa] 10 mg PO DAILY #30 tablet 04/04/21 - Allergies Allergies/Adverse Reactions: Allergies Allergy/AdvReac Type Severity Reaction Status Date / Time No Known Drug Allergies Allergy Verified 03/26/21 19:16 - Social History Does the pt smoke?: No Smoking Status: Never smoker Does the pt drink ETOH?: No Does the pt have substance abuse?: No - Immunizations Immunizations are current?: No Immunizations: Other immun not current - POLST Patient has POLST: No PD ED PE NORMAL - Vitals Vital signs reviewed: Yes - General General: Alert and oriented X 3, No acute distress, Well developed/nourished, Other (Calm cooperative and in no apparent distress.) - HEENT HEENT: Atraumatic, PERRL, EOMI, Moist mucous membranes - Neck Neck: Supple, no meningeal sign - Cardiac Cardiac: RRR, No murmur - Respiratory Respiratory: No respiratory distress, Clear bilaterally - Abdomen Abdomen: Soft, Non tender, Non distended - Derm Derm: Normal color, Warm and dry, No rash - Extremities Extremities: No deformity, Normal ROM s pain - Neuro Neuro: Alert and oriented X 3, hot top liner helper 2-12 intact, Normal speech, Other (Grossly intact) - Psych Psych: Normal mood, Normal affect Results - Vitals Vitals: Vital Signs - 24 hr 04/03/21 04/03/21 04/04/21 22:27 23:30 00:38 Temperature 36.3 C L Heart Rate 78 Respiratory 16 16 16 Rate Blood Pressure 109/60 O2 Saturation 97 Oxygen O2 Source Room air PD MEDICAL DECISION MAKING - ED course Complexity details: considered differential, d/w patient ED course: Patient was started on his Zyprexa again. I have given him a prescription for the same. We have discussed the usual indications for return. Departure - Departure Disposition: 01 Home, Self Care Clinical Impression: Anxiety Schizoaffective disorder Qualifiers: Schizoaffective disorder type: unspecified Qualified Code(s): F25.9 - Schizoaffective disorder, unspecified Condition: Stable Instructions: ED Panic Attack, ED Schizo Affective Disorder Prescriptions: OLANZapine [Zyprexa] 10 mg PO DAILY #30 tablet Discharge Date/Time: 04/04/21 00:49
[2021-04-04] MEDS: OLANZapine ODT 5 MG TABLET TL STA ×2 (00:25→00:49)
== END 2021-04-04 00:49 | disposition home or self-care (01) ==
LOC: ED 22:15
DX: F41.9 Anxiety disorder, unspecified (principal); F25.9 Schizoaffective disorder, unspecified
CPT/HCPCS: 99282; 99283

== ENCOUNTER 2021-05-02 22:29 | Emergency (ER) | payer MEDICAID ==
[2021-05-02 23:15] VITALS: BP 122/74
[2021-05-02] MEDS ORDERED: IBUPROFEN 600 MG TABLET PO STA (23:52)
--- NOTE | 2021-05-02 23:55 | ED Physician Documentation ---
History of Present Illness - Stated complaint Stated Complaint: R rib cage pain - Chief complaint Chief Complaint: General - History obtained from History obtained from: Patient - Additonal information Additional information: 26yM with pmh schizoaffective disorder and anxiety p/w R rib cage electrical sensation intermittent over the past 3 months, mild, resolving with pressing on it today, without associated symptoms. denies other complaints. Review of Systems Ten Systems: 10 systems reviewed and negative Constitutional: denies: Fever, Chills Cardiac: denies: Chest pain / pressure Respiratory: denies: Dyspnea Musculoskeletal: reports: Other (rib discomfort) PD PAST MEDICAL HISTORY - Past Medical History Cardiovascular: None Respiratory: None Neuro: None Endocrine/Autoimmune: None GI: None : None HEENT: None Psych: Anxiety, Bipolar disorder, Obsessive compulsive disorder Musculoskeletal: None Derm: None - Past Surgical History Past Surgical History: No - Present Medications Home Medications: Ambulatory Orders Medication Instructions Recorded Confirmed OLANZapine [Zyprexa] 10 mg PO DAILY #30 tablet 04/04/21 - Allergies Allergies/Adverse Reactions: Allergies Allergy/AdvReac Type Severity Reaction Status Date / Time No Known Drug Allergies Allergy Verified 05/02/21 23:15 - Social History Does the pt smoke?: No Smoking Status: Never smoker Does the pt drink ETOH?: No Does the pt have substance abuse?: No - Immunizations Immunizations are current?: No Immunizations: Other immun not current - POLST Patient has POLST: No PD ED PE NORMAL - Vitals Vital signs reviewed: Yes - General General: Alert and oriented X 3, No acute distress, Well developed/nourished - HEENT HEENT: Atraumatic, PERRL, EOMI - Neck Neck: Supple, no meningeal sign - Cardiac Cardiac: RRR - Respiratory Respiratory: No respiratory distress, Clear bilaterally - Abdomen Abdomen: Non tender, Non distended, Other (negative ruelas sign) - Derm Derm: Normal color, Warm and dry, No rash - Neuro Neuro: Alert and oriented X 3 Results - Vitals Vitals: Vital Signs - 24 hr 05/02/21 23:11 Temperature 36.5 C Heart Rate 61 Respiratory 16 Rate Blood Pressure 122/74 O2 Saturation 100 Oxygen O2 Source Room air PD MEDICAL DECISION MAKING - ED course ED course: 26-year-old man presents with right lower anterior rib cage pain for the past 3 months without any concerning features. Return precautions given. Patient will follow up with his primary doctor. Departure - Departure Disposition: 01 Home, Self Care Clinical Impression: Rib pain on left side, Electrical shock sensation Condition: Good Instructions: ED Strain Chest Wall Comments: You were seen in the emergency department for evaluation of rib pain. You do not have any emergent causes for your pain at this time. Take ibuprofen 400 to 600 mg every 6 hours as needed for pain. Please plan to follow-up with your primary doctor. Return to the emergency department if you have other concerns.
== END 2021-05-03 00:15 | disposition home or self-care (01) ==
LOC: ED 22:29
DX: R07.81 Pleurodynia (principal)
CPT/HCPCS: 99282; A9270

== ENCOUNTER 2021-05-22 07:31 | Emergency (ER) | payer MEDICAID | END 2021-05-22 07:46 | disposition left against medical advice (07) | LOC: ED 07:31 | DX: Z53.21 Procedure and treatment not carried out due to patient leaving prior to being seen by health care provider (principal) ==

== ENCOUNTER 2021-06-26 02:20 | Emergency (ER) | payer MEDICAID ==
--- NOTE | 2021-06-26 02:43 | ED Physician Documentation ---
History of Present Illness - Stated complaint Stated Complaint: TIGHTNESS IN THROAT - Chief complaint Chief Complaint: Heent - History obtained from History obtained from: Patient - History of Present Illness Timing: Today Pain level now: 0 - Additonal information Additional information: patient is well known to this ED , [facility] for various c/o which are mostly related to mental health issues. Tonight he c/o hoarse voice and dry mouth. He says he had a panic attack earlier this afternoon that lasted approximately 2 hours and that he spent most of the two hours yelling, which he says is typical for how he reacts when he is having severe anxiety and panic. He says the anxiety and panic have resolved but he feels that his throat is dry and voice hoarse due to yelling. he says that he only came to ED because for a brief time tonight, he felt as though his throat was becoming tight and constricted. However, he says this sensation has resolved while awaiting evaluation. Review of Systems Throat: denies: Sore throat Psychiatric: reports: Anxiety (resolved). denies: Depressed, Suicidal, Hallucinations PD PAST MEDICAL HISTORY - Past Medical History Past Medical History: Yes Cardiovascular: None Respiratory: None Neuro: None Endocrine/Autoimmune: None GI: None : None HEENT: None Psych: Anxiety, Bipolar disorder, Obsessive compulsive disorder Musculoskeletal: None Derm: None - Past Surgical History Past Surgical History: No - Present Medications Home Medications: Ambulatory Orders Medication Instructions Recorded Confirmed OLANZapine [Zyprexa] 10 mg PO DAILY #30 tablet 04/04/21 05/02/21 - Allergies Allergies/Adverse Reactions: Allergies Allergy/AdvReac Type Severity Reaction Status Date / Time No Known Drug Allergies Allergy Verified 06/26/21 02:32 - Social History Does the pt smoke?: No Smoking Status: Never smoker Does the pt drink ETOH?: No Does the pt have substance abuse?: No - Immunizations Immunizations are current?: No Immunizations: Other immun not current - POLST Patient has POLST: No PD ED PE NORMAL - Vitals Vital signs reviewed: Yes - General General: Alert and oriented X 3, No acute distress, Well developed/nourished, Other (calm, polite, conversant, appropriate) - HEENT HEENT: Moist mucous membranes, Pharynx benign Results - Vitals Vitals: Oxygen O2 Source Room air PD MEDICAL DECISION MAKING - ED course Complexity details: considered differential, d/w patient ED course: patient has mildly raspy/hoarse voice which he says is a consequence of yelling for nearly two hours this afternoon, which is how he reacts to his anxiety and panic attacks. The sensation of his throat becoming tight and constricted has resolved prior to this evaluation and he is in NAD and comfortable with reassurance and discharge. Oropharyngeal exam is unremarkable. Departure - Departure Disposition: 01 Home, Self Care Clinical Impression: Dry mouth Condition: Good Instructions: ED Panic Attack Comments: As we discussed, there is no evidence (on my exam) of swelling of the throat. It seems logical that the reason for your hoarse voice and sensation of dry mouth is from the yelling you describe that happened as a result of your anxiety and panic. As we discussed, I recommend that you resume taking the olanzepine as prescribed. Discharge Date/Time: 06/26/21 03:01
[2021-06-26 03:02] VITALS: BP 125/62
== END 2021-06-26 03:01 | disposition home or self-care (01) ==
LOC: ED 02:20
DX: R68.2 Dry mouth, unspecified (principal)
CPT/HCPCS: 99281; 99282

== ENCOUNTER 2021-08-17 22:39 | Emergency (ER) | payer MEDICAID ==
[2021-08-17 22:47] VITALS: BP 114/80
--- NOTE | 2021-08-17 22:47 | ED Physician Documentation ---
PD HPI MHE - Stated complaint Stated Complaint: MED REFILL - History obtained from History obtained from: Patient - History of Present Illness Primary symptom: Anxiety (and moderate insomnia) Timing - onset: How many days ago (Out of his Olanzepine 10 mg tablet meds for 2 days. Would like to stay on them regularly. He states takes med about 6-7 pm and will sleep reasonably well with it.) Contributing factors: No: Substance abuse - ETOH, Substance abuse - drugs Similar symptoms before: Diagnosis (anxiety and has been out of meds in past.) Recently seen: Clinic (most recent med refill was about 5 weeks ago.) Review of Systems Constitutional: denies: Fever, Chills Nose: denies: Rhinorrhea / runny nose, Congestion Throat: denies: Sore throat Respiratory: denies: Cough GI: denies: Abdominal Pain, Nausea, Vomiting, Diarrhea Neurologic: denies: Near syncope Psychiatric: reports: Anxiety, Insomnia. denies: Suicidal, Delusions PD PAST MEDICAL HISTORY - Past Medical History Cardiovascular: None Respiratory: None Neuro: None Endocrine/Autoimmune: None GI: None : None HEENT: None Psych: Anxiety, Bipolar disorder, Obsessive compulsive disorder Musculoskeletal: None Derm: None - Past Surgical History Past Surgical History: No - Present Medications Home Medications: Ambulatory Orders Medication Instructions Recorded Confirmed OLANZapine [Zyprexa] 10 mg PO DAILY #30 tablet 08/17/21 - Allergies Allergies/Adverse Reactions: Allergies Allergy/AdvReac Type Severity Reaction Status Date / Time No Known Drug Allergies Allergy Verified 08/17/21 22:44 - Social History Does the pt smoke?: No Smoking Status: Never smoker Does the pt drink ETOH?: No Does the pt have substance abuse?: No - Immunizations Immunizations are current?: No Immunizations: Other immun not current - POLST Patient has POLST: No PD ED PE NORMAL - Vitals Vital signs reviewed: Yes - General General: Alert and oriented X 3, No acute distress, Well developed/nourished - Derm Derm: Normal color, Warm and dry - Extremities Extremities: Normal ROM s pain - Neuro Neuro: Alert and oriented X 3, No motor deficit, Normal speech Results - Vitals Vitals: Vital Signs - 24 hr 08/17/21 22:44 Temperature 37.2 C Heart Rate 66 Respiratory 16 Rate Blood Pressure 114/80 O2 Saturation 99 Oxygen O2 Source Room air PD MEDICAL DECISION MAKING - ED course Complexity details: considered differential (requesting refill of his Olanzapine. His primary care office is supposedly unable to give appt for weeks. ), d/w patient Departure - Departure Disposition: 01 Home, Self Care Clinical Impression: Anxiety, Medication refill Condition: Stable Record reviewed to determine appropriate education?: Yes Prescriptions: OLANZapine [Zyprexa] 10 mg PO DAILY #30 tablet Comments: I transmitted your prescription for a month supply of olanzapine 10 mg to take each evening for your anxiety. I transmitted it to [facility] pharmacy in [place]. Stay well-hydrated and continue usual medications. Return as needed. Follow-up with your primary care or walk-in clinic for further refills. Discharge Date/Time: 08/17/21 23:02
== END 2021-08-17 23:02 | disposition home or self-care (01) ==
LOC: ED 22:39
DX: Z76.0 Encounter for issue of repeat prescription (principal); F41.9 Anxiety disorder, unspecified
CPT/HCPCS: 99282; 99283

== ENCOUNTER 2021-08-30 22:19 | Emergency (ER) | payer MEDICAID ==
[2021-08-30 22:29] VITALS: BP 129/67
[2021-08-30 22:45] LABS: BILIRUBIN,URINE NEGATIVE (NEGATIVE); GLUCOSE, URINE (UA) NEGATIVE (NEGATIVE); KETONES,URINE (UA) NEGATIVE (NEGATIVE); LEUKOCYTE ESTERASE, URINE NEGATIVE (NEGATIVE); NITRITE,URINE NEGATIVE (NEGATIVE); OCCULT BLOOD,URINE NEGATIVE (NEGATIVE); PROTEIN,URINE NEGATIVE (NEGATIVE); UROBILINOGEN,URINE 0.2 (NORMAL) E.U./dL (NORMAL)
[2021-08-30] MEDS ORDERED: DICYCLOMINE 10 MG CAPSULE PO STA (22:49)
[2021-08-30] MEDS ORDERED: ONDANSETRON ODT 4 MG TABLET TL STA (22:49)
[2021-08-30] MEDS ORDERED: ONDANSETRON ODT 4 MG Prepack 2 TL PRN (22:50)
--- NOTE | 2021-08-30 22:52 | ED Physician Documentation ---
PD HPI ABD PAIN - Stated complaint Stated Complaint: ABD PX - Chief complaint Chief Complaint: Abd Pain - Additional information Additional information: Patient is 26-year-old male with past medical significant for bipolar, obsessive-compulsive disorder and anxiety presenting to the emergency department with lower abdominal pain. Reports pain began this morning after having breakfast at [employer]. Reports cramping abdominal pain with associated nausea without vomiting. Also reports has been belching earlier today. Does report 1 episode diarrhea earlier today. Denies any previous episodes of lower abdominal pain. He denies any fever, chills, chest pain, shortness of breath, new rash, weakness/numbness/tingling in any extremity. Review of Systems Ten Systems: 10 systems reviewed and negative Constitutional: denies: Fever, Chills Eyes: denies: Loss of vision Ears: denies: Loss of hearing Nose: denies: Rhinorrhea / runny nose Throat: denies: Dental pain / toothache Cardiac: denies: Chest pain / pressure Respiratory: denies: Dyspnea GI: reports: Abdominal Pain, Nausea, Diarrhea. denies: Abdominal Swelling, Vomiting, Hematemesis : denies: Dysuria Skin: denies: Rash Musculoskeletal: denies: Neck pain Neurologic: denies: Generalized weakness Psychiatric: denies: Depressed Endocrine: denies: Polydypsia Immunocompromised: denies: Immunocompromised PD PAST MEDICAL HISTORY - Past Medical History Cardiovascular: None Respiratory: None Neuro: None Endocrine/Autoimmune: None GI: None : None HEENT: None Psych: Anxiety, Bipolar disorder, Obsessive compulsive disorder Musculoskeletal: None Derm: None - Past Surgical History Past Surgical History: No - Present Medications Home Medications: Ambulatory Orders Medication Instructions Recorded Confirmed OLANZapine [Zyprexa] 10 mg PO DAILY #30 tablet 08/17/21 Dicyclomine [Bentyl] 10 mg PO Q6H #15 cap 08/30/21 Ondansetron Odt [Zofran] 4 mg TL Q6H PRN #10 tablet 08/30/21 polyethylene glycoL 3350 [Miralax] 17 gm PO DAILY PRN #1 bottle 08/30/21 - Allergies Allergies/Adverse Reactions: Allergies Allergy/AdvReac Type Severity Reaction Status Date / Time No Known Drug Allergies Allergy Verified 08/30/21 22:29 - Social History Does the pt smoke?: No Smoking Status: Never smoker Does the pt drink ETOH?: No Does the pt have substance abuse?: No - Immunizations Immunizations are current?: No Immunizations: Other immun not current - POLST Patient has POLST: No PD ED PE NORMAL - General General: Alert and oriented X 3 - HEENT HEENT: Atraumatic - Neck Neck: Supple, no meningeal sign - Cardiac Cardiac: RRR - Respiratory Respiratory: No respiratory distress - Abdomen Abdomen: Normal bowel sounds, Soft, Non tender, Non distended, No organomegaly - Male Male : Deferred - Rectal Rectal: Deferred - Back Back: No CVA TTP, No spinal TTP - Derm Derm: Normal color - Extremities Extremities: No deformity Results - Vitals Vitals: Vital Signs - 24 hr 08/30/21 22:24 Temperature 36.6 C Heart Rate 71 Respiratory 12 Rate Blood Pressure 129/67 O2 Saturation 99 Oxygen O2 Source Room air PD MEDICAL DECISION MAKING - ED course Complexity details: d/w patient ED course: Patient is 26-year-old male presenting to the emergency department with abdominal pain, nausea and diarrhea after [employer] this morning. Afebrile, hemodynamically stable on arrival to the emergency department. Abdominal exam is benign. Nothing in his presentation is suggestive of acute abdomen or surgical abdomen. Patient refused lab work in the emergency department. I offered him a comprehensive work-up including lab work and imaging which she declined. Alternatively he was offered medication for symptomatic management. He agreed to take these medicines and was given Zofran, Bentyl here in the emergency department with Zofran starter pack. Will discharge on ongoing course of Zofran, Bentyl and MiraLAX. Encourage careful follow-up with primary care and to return to the emergency department as needed for new or worsening symptoms. Departure - Departure Disposition: 01 Home, Self Care Clinical Impression: Dyspepsia, Abdominal pain Instructions: ED Abdominal Pain Unkn Cause Male Prescriptions: Dicyclomine [Bentyl] 10 mg PO Q6H #15 cap polyethylene glycoL 3350 [Miralax] 17 gm PO DAILY PRN #1 bottle PRN Reason: Constipation Ondansetron Odt [Zofran] 4 mg TL Q6H PRN #10 tablet PRN Reason: Nausea / Vomiting Comments: Thank you for allowing us to care for you today at [facility]. I have sent your medications to [facility] in [place]. I recommend avoiding fast food for the next several days. Please continue to drink plenty of fluid. Please take your medications as prescribed. If it anytime you have any new or worsening symptoms please do not hesitate to return to the emergency department.
[2021-08-30 22:53] LABS: CLARITY,URINE CLEAR (CLEAR)
== END 2021-08-30 23:05 | disposition home or self-care (01) ==
LOC: ED 22:19
DX: R10.13 Epigastric pain (principal)
CPT/HCPCS: 80053; 81001; 81003; 83690; 85025; 87086; 99282; 99283

== ENCOUNTER 2021-09-26 21:33 | Emergency (ER) | payer MEDICAID | END 2021-09-26 21:55 | disposition left against medical advice (07) | LOC: ED 21:33 | DX: Z53.21 Procedure and treatment not carried out due to patient leaving prior to being seen by health care provider (principal) ==

== ENCOUNTER 2022-02-26 03:19 | Outpatient (CLI) | payer MEDICAID | END 2022-02-26 03:20 | disposition EMS.NT | LOC: EMS 03:19 | DX: R41.82 Altered mental status, unspecified (principal); R45.1 Restlessness and agitation ==

== ENCOUNTER 2022-03-05 13:18 | Emergency (ER) | payer MEDICAID ==
[2022-03-05 13:39] VITALS: BP 144/94
--- NOTE | 2022-03-05 14:50 | ED Physician Documentation ---
PD HPI MHE - Stated complaint Stated Complaint: AMS - Chief complaint Chief Complaint: MHE - History obtained from History obtained from: Patient - Additional information Additional information: Patient is a 27-year-old male with a history of schizoaffective disorder presenting for evaluations of having episodes where he feels "euphoric" And auditory hallucinations. He Denies feeling suicidal or homicidal. He does not want psychiatric placement at this time. He reports feeling better in the past when he was on Zyprexa and is interested in getting back on this medication.Labs were ordered from triage which patient declined.He states that he has had labs done many times and that is not changed The plan.He has been to [facility] in the past but has not been there recently. He denies drug or alcohol use. Review of Systems Constitutional: denies: Fever Cardiac: denies: Chest pain / pressure Respiratory: denies: Dyspnea GI: denies: Abdominal Pain : denies: Dysuria Musculoskeletal: denies: Back pain Psychiatric: denies: Suicidal PD PAST MEDICAL HISTORY - Past Medical History Cardiovascular: None Respiratory: None Neuro: None Endocrine/Autoimmune: None GI: None : None HEENT: None Psych: Anxiety, Bipolar disorder, Obsessive compulsive disorder Musculoskeletal: None Derm: None - Past Surgical History Past Surgical History: No - Present Medications Home Medications: Ambulatory Orders Medication Instructions Recorded Confirmed OLANZapine [Zyprexa] 10 mg PO DAILY #30 tablet 08/17/21 Dicyclomine [Bentyl] 10 mg PO Q6H #15 cap 08/30/21 Ondansetron Odt [Zofran] 4 mg TL Q6H PRN #10 tablet 08/30/21 polyethylene glycoL 3350 [Miralax] 17 gm PO DAILY PRN #1 bottle 08/30/21 OLANZapine [Zyprexa] 5 mg PO DAILY #30 tablet 03/05/22 - Allergies Allergies/Adverse Reactions: Allergies Allergy/AdvReac Type Severity Reaction Status Date / Time No Known Drug Allergies Allergy Verified 10/09/21 19:00 - Social History Does the pt smoke?: No Smoking Status: Never smoker Does the pt drink ETOH?: No Does the pt have substance abuse?: No - Immunizations Immunizations are current?: No Immunizations: Other immun not current - POLST Patient has POLST: No PD ED PE NORMAL - General General: Alert and oriented X 3, No acute distress, Well developed/nourished - HEENT HEENT: Atraumatic - Neck Neck: Supple, no meningeal sign - Cardiac Cardiac: RRR, No murmur - Respiratory Respiratory: No respiratory distress, Clear bilaterally - Abdomen Abdomen: Soft, Non tender - Derm Derm: Warm and dry - Neuro Neuro: Alert and oriented X 3, No motor deficit, Normal speech Results - Vitals Vitals: Vital Signs - 24 hr 03/05/22 13:34 Temperature 37.0 C Heart Rate 75 Respiratory 19 Rate Blood Pressure 144/94 H O2 Saturation 99 Oxygen O2 Source Room air PD Medical Decision Making - ED course ED course: Patient presenting for evaluation of having periods of euphoria And reported hallucinations. He does not appear acutely psychotic and he denies being suicidal or homicidal. He has frequent ED presentations for similar Symptoms. He reports doing better when he has been on Zyprexa in the past and interested in starting the medication back up. He declined labs. PrefersThis patient has been on this medication before we will restart him on it. Start at a lower dose so we will start on 5 mg daily. Patient also given information for [facility]. He is well aware of return precautions. Departure - Departure Disposition: 01 Home, Self Care Clinical Impression: Medication refill, Schizoaffective disorder Condition: Stable Instructions: ED Schizo Affective Disorder Prescriptions: OLANZapine [Zyprexa] 5 mg PO DAILY #30 tablet Comments: I have refilled your Zyprexa and sent this prescriptions to [facility] in [place]. Please return to the ER if you have any concerning symptoms such as feeling suicidal Or feeling unsafe. Follow-up with [facility] at [phone] to schedule psychiatric care and counseling. Discharge Date/Time: 03/05/22 14:58
== END 2022-03-05 14:58 | disposition home or self-care (01) ==
LOC: ED 13:18
DX: F25.8 Other schizoaffective disorders (principal); Z76.0 Encounter for issue of repeat prescription
CPT/HCPCS: 80053; 80307; 80320; 80329; 83690; 84443; 85025; 99282; 99283

== ENCOUNTER 2022-03-08 20:37 | Outpatient (CLI) | payer MEDICAID | END 2022-03-08 20:38 | disposition EMS.NT | LOC: EMS 20:37 | DX: F41.9 Anxiety disorder, unspecified (principal) ==

== ENCOUNTER 2022-05-07 14:56 | Emergency (ER) | payer MEDICAID ==
[2022-05-07 15:09] VITALS: BP 113/66
--- NOTE | 2022-05-07 16:56 | ED Physician Documentation ---
History of Present Illness - Stated complaint Stated Complaint: ANXIETY - Chief complaint Chief Complaint: MHE - History obtained from History obtained from: Patient - History of Present Illness Timing: Today Pain level max: 0 Pain level now: 0 - Additonal information Additional information: 27-year-old male states that he was anxious earlier today but he feels better now. He states that it felt similar to his prior panic attacks. Is unsure what exactly caused it today. No suicidal or homicidal ideation. Patient is requesting to go home at this time. Review of Systems Nose: denies: Rhinorrhea / runny nose, Congestion Cardiac: denies: Chest pain / pressure Respiratory: denies: Dyspnea, Cough, Wheezing PD PAST MEDICAL HISTORY - Past Medical History Cardiovascular: None Respiratory: None Neuro: None Endocrine/Autoimmune: None GI: None : None HEENT: None Psych: Anxiety, Bipolar disorder, Obsessive compulsive disorder Musculoskeletal: None Derm: None - Past Surgical History Past Surgical History: No - Present Medications Home Medications: Ambulatory Orders Medication Instructions Recorded Confirmed OLANZapine [Zyprexa] 10 mg PO DAILY #30 tablet 08/17/21 Dicyclomine [Bentyl] 10 mg PO Q6H #15 cap 08/30/21 Ondansetron Odt [Zofran] 4 mg TL Q6H PRN #10 tablet 08/30/21 polyethylene glycoL 3350(BULK) 17 gm PO DAILY PRN #1 bottle 08/30/21 [Miralax] OLANZapine [Zyprexa] 5 mg PO DAILY #30 tablet 03/05/22 - Allergies Allergies/Adverse Reactions: Allergies Allergy/AdvReac Type Severity Reaction Status Date / Time No Known Drug Allergies Allergy Verified 05/07/22 15:10 - Social History Does the pt smoke?: No Smoking Status: Never smoker Does the pt drink ETOH?: No Does the pt have substance abuse?: No - Immunizations Immunizations are current?: No Immunizations: Other immun not current - POLST Patient has POLST: No PD ED PE NORMAL - Vitals Vital signs reviewed: Yes - General General: Alert and oriented X 3, No acute distress - HEENT HEENT: Moist mucous membranes - Neck Neck: Supple, no meningeal sign - Cardiac Cardiac: RRR, Strong equal pulses - Respiratory Respiratory: No respiratory distress, Clear bilaterally - Abdomen Abdomen: Soft, Non tender, Non distended - Derm Derm: Warm and dry - Extremities Extremities: No edema - Neuro Neuro: Alert and oriented X 3 - Psych Psych: Normal mood, Normal affect Results - Vitals Vitals: Vital Signs - 24 hr 05/07/22 15:06 Temperature 36.6 C Heart Rate 65 Respiratory 18 Rate Blood Pressure 113/66 O2 Saturation 100 Oxygen O2 Source Room air PD Medical Decision Making - ED course Complexity details: considered differential, d/w patient ED course: No emergency medical condition at this time. It sounds as if the patient had a panic attack at home. This has since resolved and he is asymptomatic. No suicidal or homicidal ideation. Patient counseled regarding signs and symptoms for which I believe and urgent re-evaluation would be necessary. Patient with good understanding of and agreement to plan and is comfortable going home at this time This document was made in part using voice recognition software. While efforts are made to proofread this document, sound alike and grammatical errors may occur. Departure - Departure Disposition: 01 Home, Self Care Clinical Impression: Anxiety Condition: Good Instructions: ED Panic Attack Follow-Up: your,doctor in 1 week [Other] Comments: Please follow up with your doctor for further care. Return if you worsen. Discharge Date/Time: 05/07/22 17:11
== END 2022-05-07 17:11 | disposition home or self-care (01) ==
LOC: ED 14:56
DX: F41.9 Anxiety disorder, unspecified (principal); F31.9 Bipolar disorder, unspecified; Z79.899 Other long term (current) drug therapy
CPT/HCPCS: 99281; 99282

== ENCOUNTER 2022-06-10 22:16 | Outpatient (CLI) | payer MEDICAID | END 2022-06-10 23:59 | disposition critical access hospital (66) | LOC: EMS 22:16 | DX: R09.89 Other specified symptoms and signs involving the circulatory and respiratory systems (principal); W86.8XXA Exposure to other electric current, initial encounter; Y92.511 Restaurant or cafe as the place of occurrence of the external cause | CPT/HCPCS: A0425; A0429 ==

== ENCOUNTER 2022-06-10 22:29 | Emergency (ER) | payer MEDICAID ==
[2022-06-10 22:39] VITALS: BP 143/82
--- NOTE | 2022-06-10 22:57 | ED Physician Documentation ---
History of Present Illness - Stated complaint Stated Complaint: SHOCKED AT 1400, LUNGS NOW HURTING - Chief complaint Chief Complaint: Resp - History obtained from History obtained from: Patient - Additonal information Additional information: 27-year-old male with history of undiagnosed mental illness, frequently seen here in the ED, presents with electrical shock sensation at 1400. Patient states that he has a history of anxiety and was breathing deeply after touching a hot kettle and had multiple tingling sensations in his finger radiating up the arm where he touched the cattle, leading him to think that he had been electrocuted.He states that the feeling has now passed and he is feeling better.Denies other complaints PD PAST MEDICAL HISTORY - Past Medical History Cardiovascular: None Respiratory: None Neuro: None Endocrine/Autoimmune: None GI: None : None HEENT: None Psych: Anxiety, Bipolar disorder, Obsessive compulsive disorder Musculoskeletal: None Derm: None - Past Surgical History Past Surgical History: No - Present Medications Home Medications: Ambulatory Orders Medication Instructions Recorded Confirmed OLANZapine [Zyprexa] 10 mg PO DAILY #30 tablet 08/17/21 Dicyclomine [Bentyl] 10 mg PO Q6H #15 cap 08/30/21 Ondansetron Odt [Zofran] 4 mg TL Q6H PRN #10 tablet 08/30/21 polyethylene glycoL 3350(BULK) 17 gm PO DAILY PRN #1 bottle 08/30/21 [Miralax] OLANZapine [Zyprexa] 5 mg PO DAILY #30 tablet 03/05/22 - Allergies Allergies/Adverse Reactions: Allergies Allergy/AdvReac Type Severity Reaction Status Date / Time No Known Drug Allergies Allergy Verified 06/10/22 22:39 - Social History Does the pt smoke?: No Smoking Status: Never smoker Does the pt drink ETOH?: No Does the pt have substance abuse?: No - Immunizations Immunizations are current?: No Immunizations: Other immun not current - POLST Patient has POLST: No PD ED PE NORMAL - Vitals Vital signs reviewed: Yes - General General: Alert and oriented X 3, No acute distress, Well developed/nourished - HEENT HEENT: Atraumatic, PERRL, EOMI - Derm Derm: Normal color, Warm and dry - Extremities Extremities: No deformity, No tenderness to palpate, Normal ROM s pain, Other (2+ radial pulse bilaterally. Normal sensation and capillary refill. Normal movement) - Neuro Neuro: No motor deficit, No sensory deficit Results - Vitals Vitals: Vital Signs - 24 hr 06/10/22 22:36 Temperature 37 C Heart Rate 55 L Respiratory 18 Rate Blood Pressure 143/82 H O2 Saturation 100 Oxygen O2 Source Room air PD Medical Decision Making - ED course ED course: 27-year-old man with history of undiagnosed mental illness, not currently on medications, with prior history of multiple complaints related to electrical sensation, presents with concern that he had been electrocuted tonight after touching a hot kettle. Patient specified that he did not touch an electrical outlet or any electrical appliances other than the cattle itself. The feeling is now passed and he is feeling better. I did advise that hyperventilation can increase oxygen in the bloodstream, resulting in tingling sensation in the fingertips and he agreed this may be the cause. Return precautions provided. Plan to follow-up with his primary care provider. Departure - Departure Disposition: 01 Home, Self Care Clinical Impression: Hyperventilation, Tingling in extremities Condition: Good Instructions: Anxiety Body Response Comments: You were seen in the emergency department for medical evaluation. Your physical exam was normal and you can follow-up with your primary care provider. Return to the emergency department for new or worsening symptoms or if you have other concerns.
== END 2022-06-10 23:03 | disposition home or self-care (01) ==
LOC: EDUNIT# → ED 22:29
DX: R20.2 Paresthesia of skin (principal); R06.4 Hyperventilation
CPT/HCPCS: 99283

== ENCOUNTER 2022-07-26 01:16 | Outpatient (CLI) | payer MEDICAID | END 2022-07-26 23:59 | disposition critical access hospital (66) | LOC: EMS 01:16 | DX: R09.81 Nasal congestion (principal); R09.89 Other specified symptoms and signs involving the circulatory and respiratory systems | CPT/HCPCS: A0425; A0429; A0999 ==

== ENCOUNTER 2022-07-26 01:25 | Emergency (ER) | payer MEDICAID ==
--- NOTE | 2022-07-26 01:38 | ED Physician Documentation ---
History of Present Illness - Stated complaint Stated Complaint: ALLERGIES - History obtained from History obtained from: Patient - Additonal information Additional information: 27yM presents via ems for nasal congestion X couple hours. no other symptoms. patient states he has seasonal allergies Review of Systems Nose: reports: Congestion PD PAST MEDICAL HISTORY - Past Medical History Cardiovascular: None Respiratory: None Neuro: None Endocrine/Autoimmune: None GI: None : None HEENT: None Psych: Anxiety, Bipolar disorder, Obsessive compulsive disorder Musculoskeletal: None Derm: None - Past Surgical History Past Surgical History: No - Present Medications Home Medications: Ambulatory Orders Medication Instructions Recorded Confirmed OLANZapine [Zyprexa] 10 mg PO DAILY #30 tablet 08/17/21 Dicyclomine [Bentyl] 10 mg PO Q6H #15 cap 08/30/21 Ondansetron Odt [Zofran] 4 mg TL Q6H PRN #10 tablet 08/30/21 polyethylene glycoL 3350(BULK) 17 gm PO DAILY PRN #1 bottle 08/30/21 [Miralax] OLANZapine [Zyprexa] 5 mg PO DAILY #30 tablet 03/05/22 Cetirizine [ZyrTEC] 10 mg PO DAILY PRN #10 tablet 07/26/22 Oxymetazoline HCl [Afrin] 1 appful NS BID PRN 3 Days #15 ml 07/26/22 - Allergies Allergies/Adverse Reactions: Allergies Allergy/AdvReac Type Severity Reaction Status Date / Time No Known Drug Allergies Allergy Verified 06/10/22 22:39 - Social History Does the pt smoke?: No Smoking Status: Never smoker Does the pt drink ETOH?: No Does the pt have substance abuse?: No - Immunizations Immunizations are current?: No Immunizations: Other immun not current - POLST Patient has POLST: No PD ED PE NORMAL - Vitals Vital signs reviewed: Yes - General General: Alert and oriented X 3, No acute distress, Well developed/nourished - HEENT HEENT: Atraumatic, PERRL, EOMI, Moist mucous membranes, Pharynx benign, Other (nasal congestion) Results - Vitals Vitals: Oxygen O2 Source Room air PD Medical Decision Making - ED course ED course: 27-year-old man presents for nasal congestion he attributes to seasonal allergies. Declining medication here in the emergency department. Prescription sent to pharmacy. Departure - Departure Disposition: Home, Self Care Clinical Impression: Nasal congestion Condition: Stable Instructions: ED Allergy Seasonal Prescriptions: Oxymetazoline HCl [Afrin] 1 appful NS BID PRN 3 Days #15 ml PRN Reason: Nasal Congestion Cetirizine [ZyrTEC] 10 mg PO DAILY PRN #10 tablet PRN Reason: Nasal Congestion Comments: You are seen in the emergency department for seasonal allergies. Please follow- up with your primary care provider. An electronic prescription was sent to [facility] in [place] for Zyrtec.
[2022-07-26 01:44] VITALS: BP 137/91
== END 2022-07-26 01:53 | disposition home or self-care (01) ==
LOC: EDUNIT# → ED 01:25
DX: R09.81 Nasal congestion (principal)
CPT/HCPCS: 99283

== ENCOUNTER 2022-08-01 02:00 | Outpatient (CLI) | payer MEDICAID | END 2022-08-01 23:59 | disposition left against medical advice (07) | LOC: EMS 02:00 | DX: R51.9 Headache, unspecified (principal); M43.6 Torticollis; Z59.00 Homelessness unspecified ==